=== PATIENT | male | born 1930 | race Caucasian/White ===

== ENCOUNTER 2016-08-31 05:37 | Emergency (ER) | payer MEDICARE, BC ==
[2016-08-31] MEDS ORDERED: Albuterol/Ipratropium NEB.SOL* Albuterol 2.5 MG/Ipratropium 0.5 MG 3 ML INH ONE (05:59)
[2016-08-31] MEDS ORDERED: methylPREDNISolone 125 MG* 2 ML VIAL IV ONE (05:59)
[2016-08-31] MEDS ORDERED: Ketorolac INJ* 30 MG/ML 1 ML VIAL IV PUSH ONE (06:00)
--- NOTE | 2016-08-31 06:29 | ED ---
kaylin Jenkins Timothy, scribed for Jarod Mejía MD on 08/31/16 at 0553 . HPI Chest Pain - HPI Summary HPI Summary: Pierre Carrillo is an 86 yo male presenting to [facility] with 10/10 CP and SOB with cough for the past 3-4 days. He states he is congested and cannot cough it up. His MHx includes CHF, migraine, COPD, emphysema, bronchitis, PNA, hiatal hernia , BPH, testicle removal, arthritis, panic disorder, depression, tobacco use. - History of Current Complaint Time Seen by Provider: 08/31/16 05:58 Hx Obtained From: Patient Onset/Duration: Started Days Ago, Still Present Timing: Constant Initial Severity: Moderate Current Severity: Moderate Pain Intensity: 10 Pain Scale Used: 0-10 Numeric Chest Pain Location: Diffuse Associated Signs and Symptoms: Positive: Shortness of Breath, Cough - Additional Pertinent History Primary Care Physician: [id number] - Allergy/Home Medications Allergies/Adverse Reactions: Allergies Allergy/AdvReac Type Severity Reaction Status Date / Time Penicillins [PCN] Allergy Severe Swelling Verified 08/31/16 05:58 Of Face,Lips,& Throat Sertraline Allergy Intermediate Rash And Verified 09/11/16 16:31 Itching Doxycycline Allergy Unknown Verified 08/31/16 05:58 Reaction Details Ezetimibe [From Zetia] Allergy See Comment Verified 09/11/16 16:31 Statins Allergy See Comment Verified 09/11/16 16:31 Home Medications: Home Medications Magnesium Hydroxide LIQ* [Milk of Magnesia LIQ*] 5 mg PO BID PRN 08/31/16 [ History Confirmed 09/11/16] PMH/Surg Hx/FS Hx/Imm Hx Endocrine/Hematology History: Denies: Hx Diabetes, Hx Systemic Lupus Erythematosus Cardiovascular History: Reports: Hx Congestive Heart Failure Denies: Hx Cardiomegaly, Hx Hypertension, Hx Myocardial Infarction, Hx Pacemaker/ICD Respiratory History: Reports: Hx Chronic Obstructive Pulmonary Disease (COPD), Hx Pneumonia - TWICE 04/2015, Other Respiratory Problems/Disorders - PLEURACY IN 2010 GI History: Reports: Hx Hiatal Hernia History: Reports: Hx Benign Prostatic Hyperplasia, Other Problems/ Disorders - testicle removed Denies: Hx Dialysis, Hx Kidney Stones, Hx Renal Disease Musculoskeletal History: Reports: Hx Arthritis - JOINTS, Other Musculoskeletal History - ,osteoarthritis, left hip replacement Denies: Hx Rheumatoid Arthritis Sensory History: Reports: Hx Cataracts, Hx Contacts or Glasses Denies: Hx Deafness, Hx Hearing Aid Opthamlomology History: Reports: Hx Cataracts, Hx Contacts or Glasses Neurological History: Reports: Hx Headaches, Hx Migraine - IN THE PAST, NOW MAYBE ONE PER YEAR, Other Neuro Impairments/Disorders - INSOMNIA Psychiatric History: Reports: Hx Depression - IN THE PAST, Hx Panic Disorder - Cancer History Hx Chemotherapy: No - Surgical History Surgery Procedure, Year, and Place: L total hip 2001, 3x hernia, testicle removed Hx Anesthesia Reactions: No Infectious Disease History: Denies: Traveled Outside the [place] in Last 30 Days - Family History Known Family History: Positive: Cardiac Disease - MOTHER, Other - ALZHEIMERS - BROTHER Negative: Diabetes - Social History Alcohol Use: None Hx Substance Use: No Substance Use Type: Reports: None Hx Tobacco Use: Yes Smoking Status (MU): Former Smoker Type: Cigarettes Review of Systems Constitutional: Negative Eyes: Negative ENT: Negative Positive: Chest Pain Positive: Shortness Of Breath, Cough Gastrointestinal: Negative Genitourinary: Negative Musculoskeletal: Negative Skin: Negative Neurological: Negative Psychological: Normal All Other Systems Reviewed And Are Negative: Yes Physical Exam Triage Information Reviewed: Yes Vital Signs On Initial Exam: Initial Vitals Temp Pulse Resp BP Pulse Ox 97.6 F 121 32 151/78 91 08/31/16 05:40 08/31/16 05:40 08/31/16 05:40 08/31/16 05:40 08/31/16 05:40 Vital Signs Reviewed: Yes Appearance: Positive: Well-Appearing, No Pain Distress Skin: Positive: Warm Head/Face: Positive: Normal Head/Face Inspection Eyes: Positive: ROSIO ENT: Positive: Hearing grossly normal Neck: Positive: Supple Respiratory/Lung Sounds: Positive: Decreased Breath Sounds - prolonged expiration Cardiovascular: Positive: RRR Abdomen Description: Positive: Nontender, Soft Bowel Sounds: Positive: Present Musculoskeletal: Positive: Strength/ROM Intact Neurological: Positive: Alert, Oriented to Person Place, Time Diagnostics - Vital Signs Vital Signs Temp Pulse Resp BP Pulse Ox 08/31/16 05:40 97.6 F 121 32 151/78 91 - Laboratory Result Diagrams: 08/31/16 06:25 08/31/16 06:25 Lab Statement: Any lab studies that have been ordered have been reviewed, and results considered in the medical decision making process. - Radiology CXR Xray Interpretation: Positive (See Comments) - COPD Radiology Interpretation Completed By: ED Physician - EKG 2647 Cardiac Rate: Tachycardia - 104 BPM EKG Interpretation: Sinus tachycardia @ 104 BPM Chest Pain Course/Dx - Course Assessment/Plan: Pierre Carrillo Jr. is an 86 yo male presenting to [facility] with 10/ 10 CP and SOB with cough for the past 3-4 days. In the ED course he received toradol for pain management, duoneb, and Soul-Medrol. His EKG suggests sinus tachycardia. His CXR suggests COPD. He will be signed out to Dr. Lea pending further lab results. - Diagnoses Provider Diagnoses: COPD (chronic obstructive pulmonary disease) Discharge - Discharge Plan Condition: Stable Disposition: OTHER Discharge Disposition Comment: signed out to Dr. Lea pending further lab results. Prescriptions: guaiFENesin/CODIEN 100MG-10MG* [Robitussin AC 100Mg-10Mg*] 5 ml PO Q4H PRN #250 udc MDD 30 PRN Reason: Cough Patient Education Materials: COPD (Chronic Obstructive Pulmonary Disease) (ED) , Chronic Bronchitis (ED) Referrals: David Issa MD [Primary Care Provider] - The documentation as recorded by the kaylin salazar Timothy accurately reflects the service I personally performed and the decisions made by me, Jarod Mejía MD.
[2016-08-31 07:05] LABS: Hematocrit 46 % (42-52); Mean Corpuscular HGB Conc 33 g/dl (31-36); Mean Corpuscular Hemoglobin 31 pg (27-31); Mean Corpuscular Volume 95 fL (80-94); Mean Platelet Volume 9 um3 (7.4-10.4); Red Blood Count 4.87 10^6/ul (4.0-5.4); Red Cell Distribution Width 15 % (10.5-15); White Blood Count 14.2 10^3/ul (3.5-10.8)
[2016-08-31 07:06] LABS: Add Diff/Slide Review? Slide Review Added; Comments Flag Yes
[2016-08-31 07:11] LABS: Albumin 4.2 g/dL (3.2-5.2); BUN/Creatinine Ratio 16.3 (8-20); Calcium 10.5 mg/dL (8.6-10.3); EGFR African American 71.9 (>60); EGFR Non-African American 55.9 (>60); Globulin 4.3 g/dL (2-4); Potassium 3.5 mmol/L (3.5-5.0); Total Bilirubin 0.5 mg/dL (0.2-1.0); Total Protein 8.5 g/dL (6.4-8.9)
[2016-08-31 07:13] LABS: Troponin I 0.03 ng/mL (<0.04)
--- NOTE | 2016-08-31 07:49 | RAD ---
HISTORY: Shortness of breath COMPARISONS: September 23, 2015 VIEWS: 2: Frontal dual-energy and lateral views of the chest. FINDINGS: CARDIOMEDIASTINAL SILHOUETTE: The cardiomediastinal silhouette is normal. ROSANNA: The rosanna are normal. PLEURA: The costophrenic angles are sharp. No pleural abnormalities are noted. LUNG PARENCHYMA: There is hyperinflation with flattening of the diaphragm and expansion of the AP diameter of the chest. There are mild fibrotic changes of the lung bases ABDOMEN: The upper abdomen is clear. There is no subphrenic gas. BONES AND SOFT TISSUES: No bone or soft tissue abnormalities are noted. OTHER: None. IMPRESSION: HYPERINFLATION, CONSISTENT WITH COPD. NO ACTIVE CARDIOPULMONARY DISEASE.
[2016-08-31 08:07] LABS: Immature Granulocytes 5 % (0-9); Myelocytes % 1 % (0-1); Neutrophil % 68 % (38-83); RBC Morphology Normal (Normal)
--- NOTE | 2016-08-31 09:04 | CONSULT ---
Consult Consult: I rechecked Mr. Zavala at 0830 and he was feeling much improved and felt he could go home. He was started on levoquin yesterday by Dr. Monreal and is on chronic prednisone for PMR. He asked for some cough and pain medication. He will be D/C'd in stable condition with a diagnosis of COPD exacerbation.
[2016-08-31 09:15] VITALS: BP 116/74
== END 2016-08-31 09:00 ==
LOC: ED 05:37
DX: J44.9 Chronic obstructive pulmonary disease, unspecified (principal); R06.02 Shortness of breath; R05 Cough; R07.9 Chest pain, unspecified; Z87.891 Personal history of nicotine dependence
CPT/HCPCS: 36415; 71020; 80053; 83605; 84484; 85025; 93005; 94640; 96374; 96375; 99284; A9270-GY; J1885; J2930

== ENCOUNTER 2016-09-11 08:32 | Inpatient (IN) | payer MEDICARE, BC ==
[2016-09-11] MEDS ORDERED: Albuterol/Ipratropium NEB.SOL* Albuterol 2.5 MG/Ipratropium 0.5 MG 3 ML INH ONE (09:04)
[2016-09-11] MEDS ORDERED: Ketorolac INJ* 30 MG/ML 1 ML VIAL IV ONE (09:04)
[2016-09-11] MEDS ORDERED: Ketorolac INJ* 30 MG/ML 1 ML VIAL ONE (09:07)
[2016-09-11 09:43] LABS: Hematocrit 44 % (42-52); Hemoglobin 14.2 g/dl (14.0-18.0); Mean Corpuscular HGB Conc 32 g/dl (31-36); Mean Corpuscular Hemoglobin 31 pg (27-31); Mean Corpuscular Volume 95 fL (80-94); Mean Platelet Volume 9 um3 (7.4-10.4); Red Blood Count 4.66 10^6/ul (4.0-5.4); Red Cell Distribution Width 15 % (10.5-15); White Blood Count 16.9 10^3/ul (3.5-10.8)
[2016-09-11 09:45] LABS: Add Diff/Slide Review? Slide Review Added; Comments Flag Yes
[2016-09-11 09:59] LABS: Troponin I 0.01 ng/mL (<0.04)
[2016-09-11 10:00] LABS: Albumin 3.4 g/dL (3.2-5.2); BUN/Creatinine Ratio 21.6 (8-20); Calcium 9.2 mg/dL (8.6-10.3); Globulin 2.9 g/dL (2-4); Potassium 3.7 mmol/L (3.5-5.0); Total Bilirubin 0.6 mg/dL (0.2-1.0); Total Protein 6.3 g/dL (6.4-8.9)
--- NOTE | 2016-09-11 10:23 | RAD ---
Indication: Shortness of breath. 2 views of the chest demonstrate no mediastinal shift. Heart is of normal size and configuration. Lung gilliam appear clear. When compared to previous exam of August 31, 2016 no significant change is noted. IMPRESSION: No active cardiopulmonary disease is identified.
[2016-09-11] MEDS ORDERED: methylPREDNISolone 125 MG* 2 ML VIAL IV ONE (10:28)
[2016-09-11 10:31] LABS: Immature Granulocytes 4 % (0-9); Myelocytes % 1 % (0-1); Neutrophil % 84 % (38-83); Reactive Lymph % 1 % (0-6)
[2016-09-11 10:32] LABS: RBC Morphology Normal (Normal)
[2016-09-11] MEDS ORDERED: Iohexol 350* (CONTRAST) 500 ML MDV IV ONE (11:35)
--- NOTE | 2016-09-11 12:02 | RAD ---
Indication: Chest pain, shortness of breath. Contrast: Administered 61.1 ml of OMNIPAQUE 350 mg/ml CTA of the chest was performed after IV contrast demonstration. Coronal and sagittal reconstructed images were obtained. The pulmonary arterial tree is suboptimally visualized. No obvious filling defects are noted although motion artifact degrades the images. There is no mediastinal or hilar adenopathy noted although small AP window lymph nodes are noted. Aorta demonstrates no evidence of aortic dissection. Chronic interstitial disease is noted. Bibasilar airspace disease is present. There is a right renal cyst noted. 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 The visualized abdominal organs are otherwise unremarkable. IMPRESSION: PULMONARY ARTERIES ARE SUBOPTIMALLY VISUALIZED. THE PATIENT COULD NOT FOLLOW DIRECTIONS. NO OBVIOUS PULMONARY EMBOLUS IS NOTED ALTHOUGH SMALLER VESSELS ARE NOT WELL DEMONSTRATED. AORTA DEMONSTRATES NO EVIDENCE OF AORTIC DISSECTION. EMPHYSEMATOUS CHANGES WITH BIBASILAR AIRSPACE DISEASE LIKELY REPRESENTING ATELECTASIS ALTHOUGH PNEUMONIA IS NOT EXCLUDED. RIGHT RENAL CYST IS NOTED. DUODENAL LIPOMA IS PRESENT.
[2016-09-11] MEDS ORDERED: Albuterol 2.5 MG/3 ML NEB.SOL* (0.083%) INH PRN (14:28)
[2016-09-11] MEDS ORDERED: Ketorolac INJ* 15 MG/ML 1 ML VIAL IV PUSH PRN (14:32)
[2016-09-11] MEDS ORDERED: Spiriva Inhaler DEVICE* 1 EACH DEVICE INH ONE (15:00)
[2016-09-11] MEDS: guaiFENesin ER TAB 600 MG PO SCH ×2 (16:35→21:47)
--- NOTE | 2016-09-11 17:02 | HP ---
CC: David Issa MD HISTORY AND PHYSICAL: DATE OF ADMISSION: 09/11/16 CHIEF COMPLAINT: Chest pain. HISTORY OF PRESENT ILLNESS: Mr. Carrillo is an 86-year-old male with past medical history of COPD, BP H, depression, PMR, insomnia, who presents to the hospital with chest pain and shortness of breath. The patient states his symptoms began on the first of this month. He states he was having nausea a nd some shortness of breath with right-sided chest pain. He states he came to the hospital and was treated in the emergency department for possible COPD exacerbation or pneumonia. The patient had be en started on antibiotics by Dr. Monreal the previous day and was discharged home with some cough and pain medication. The patient states over the past week he completed the course of Levaquin and has not noted much change in his symptoms. He reports right-sided chest pain mostly in the lateral asp ect of the wall of the chest, although occasionally in the midsternal area too with coughing. He st ates it has been progressively worse over the past few days and last night he could not even get in and out of bed without having significant pain. This morning, he noticed some increasing shortness of breath also when he was walking downstairs. He was supposed to have an appointment with Dr. Miguel askew regarding possible back surgery, but he canceled the appointment and felt that he needed to come to the emergency department instead. He reports he has had significant chest congestion has had a c hronic cough. He is not sure if it is any worse than normal. He states that the chest pain is wors e with movement and occasionally with deep breathing. He usually just used his oxygen at night and w ith exertion; however, in the past few days he has been using it round the clock. The patient used a hot pack for the chest pain, this did not seem to help, but did notice improvement with ibuprofen. He has had some nausea and hiccups, also reports some constipation that improved with milk of magne gloria yesterday; however, today he feels like his abdomen is distended again. He has felt that over t he past few months he had some significant abdominal distention that is unusual for him. Here in th e emergency room, the patient got a DuoNeb and Solu-Medrol, as well as a dose of IV Toradol. He sta ed that his chest pain is still present but improved. He has been persistently tachycardic through out his stay here and underwent a CTA of the chest that did not show any clear evidence of PE, altho ugh there was some movement which made the study a little difficult to interpret. PAST MEDICAL HISTORY: COPD, on nocturnal O2, but more recently round the clock. BPH, depression, PM R, insomnia. PAST SURGICAL HISTORY: Left total hip replacement, multiple hernias with small bowel surgery and le ft orchiectomy. HOME MEDICATIONS: 1. Prednisone 30 mg by mouth daily which he is currently tapering. 2. Guaifenesin and codeine 5 mL by mouth every 4 hours as needed for cough. 3. Spiriva 1 capsule inhale daily. 4. Temazepam 30 mg by mouth at bedtime as needed for insomnia. 5. Mirtazapine 15 mg by mouth at bedtime. 6. Milk of magnesia 5 mg by mouth 3 times daily as needed for constipation. 7. Albuterol 1 puff inhale every 4 hours as needed for shortness of breath or wheezing. 8. Ibuprofen 400 mg by mouth every 6 hours as needed for pain. 9. Lasix 20 mg by mouth every other day. 10. Breo Ellipta 1 puff inhale daily. 11. Finasteride 5 mg by mouth daily. 12. Vitamin C 500 mg by mouth daily. ALLERGIES: To PENICILLIN and STATINS. FAMILY HISTORY: Significant for mother with CAD and brother with Alzheimer's disease. SOCIAL HISTORY: The patient is a former smoker with [id number]-[id number] history. Has 6 children. Denies any alcohol or illicit drug use. REVIEW OF SYSTEMS: A 12-point review of systems is negative except for that noted in the HPI. PHYSICAL EXAMINATION GENERAL: The patient is a pleasant elderly male lying in bed, in no apparent distress. VITAL SIGNS: On admission, temperature 97.8, heart rate of 122, respiratory rate of 20, O2 saturati on 90% on 3 L, blood pressure 122/65. HEENT: Head: Normocephalic, atraumatic. Pupils are equal, round, and reactive to light and accomm odation. Anicteric sclerae. ENT: Dry mucous membranes. No cervical adenopathy. LUNGS: The patient with some coarse right basilar rales. Otherwise, clear. I do not appreciate an y wheezing. Mildly prolonged expiratory phase. CARDIOVASCULAR: Tachycardia. No murmurs, gallops or rubs. ABDOMEN: Distended, soft, some mild tenderness to palpation in the right upper quadrant. Bowel ismael nds positive. EXTREMITIES: No cyanosis, clubbing, or edema. NEUROLOGIC: The patient is alert and oriented x3. No focal neurological deficits. SKIN: Warm, dry and well perfused. LABS AND DIAGNOSTICS: White blood cell count 16.9, hematocrit of 44, platelets of 165,000. INR is 0.8, D-dimer of 599. Sodium of 139, potassium 3.7, chloride of 103, carbon dioxide 26, BUN of 24, creatinine 1.11, glucose of 115. Lactic acid 2.6. LFTs within normal limits. Troponin 0.01. B-na triuretic peptide of 50. EKG personally reviewed shows sinus tachycardia. Chest x-ray personally reviewed shows no acute disease. CTA of the chest shows suboptimally visualized pulmonary arteries but no obvious PE noted, although the small vessels are not well demonstrated. No aortic dissection. Emphysematous changes with bibas ilar airspace disease likely representing atelectasis. Right renal cyst is noted. Duodenal lipoma is present. ASSESSMENT AND PLAN: Chest pain, shortness of breath in an 86-year-old male with past medical histo ry of chronic obstructive pulmonary disease, benign prostatic hyperplasia, depression, polymyalgia r heumatica and insomnia. 1. Chest pain. I do not think this is cardiac in etiology. CTA did not show any clear evidence of pulmonary embolism, although study was suboptimal. The patient's D-dimer is 599 which is not signi ficantly elevated with age adjustment. Based on the symptoms, it seems like this is more of a pleur itic pain than anything else as he has responded to antiinflammatories. For now, we will place the patient on p.r.n. ibuprofen and Toradol if needed for pain, also start some guaifenesin to see if we can help with the chest congestion. 2. Tachycardia, likely due to a combination of the patient's pain and large dose of steroids he rec eived here, although I feel it could warrant observation with his advanced age as he has persistentl y been in the one teens, occasionally 120s here in the hospital. Looking back at his previous admis sions, he has often had heart rates in the 90s or higher. I do not feel the patient needs telemetry monitoring at this point. 3. Shortness of breath. Difficult to tell if this is related to the patient's chest pain at all. I do not think he is having chronic obstructive pulmonary disease exacerbation. He received a large dose of IV steroids here in the hospital. We will just continue him back on his oral prednisone to see if he will get up and ambulate with nursing up on the floor. I do not think he has an active i nfection as he has just completed a week of Levaquin and the airspace abnormalities seen on CTA may just be atelectasis or possibly resolving pneumonia. 4. Chronic obstructive pulmonary disease. Continue home medications. 5. Benign prostatic hyperplasia. Continue home finasteride. 6. Depression. Continue home Remeron. 7. Polymyalgia rheumatica. Steroids as above. 8. DVT prophylaxis. Heparin subcu. 9. Abdominal distention. We will check a right upper quadrant ultrasound as the patient is having a bit of tenderness there. We will evaluate for any ascites as well. 10. Code status confirmed with the patient that he is a do not resuscitate. MOLST filled out to th at effect. TIME SPENT: Total time spent on this admission, 45 minutes, with over half the time spent face-to-f pattie with the patient in counseling and coordinating care. [id number]/[facility] #: [id number]
--- NOTE | 2016-09-11 18:49 | RAD ---
HISTORY: Right upper quadrant pain COMPARISONS: CT dated May 28, 2014 TECHNIQUE: Multiple transverse and longitudinal ultrasound images were obtained of the right upper quadrant of the abdomen using grayscale and color Doppler imaging. FINDINGS: The study is limited by patient bowel gas. LIVER: The liver is normal in shape, size, contour, and echogenicity. There are no focal parenchymal masses. There is normal hepatopedal flow of the portal vein on Doppler imaging. BILIARY TREE: There is no intrahepatic ductal dilatation. There is ectasia of the common duct. The common duct measures 0.9 cm. GALLBLADDER: The gallbladder is well-visualized. There is no cholelithiasis, gallbladder wall thickening, pericholecystic fluid, or sonographic Obando sign. PANCREAS: The head of the pancreas is unremarkable. The tail of the pancreas is not well visualized secondary to overlying bowel gas. RIGHT KIDNEY: There is a 1.5 cm cyst of the midpole of the right kidney. There is no hydronephrosis or nephrolithiasis. The right kidney measures 11.2 x 5 x 5.6 cm. AORTA AND IVC: The aorta and IVC are unremarkable. FLUID: There are no pleural effusions. There is no free fluid within the hepatorenal recess. OTHER FINDINGS: None. IMPRESSION: ECTASIA OF THE COMMON DUCT MEASURING UP TO 0.9 CM, WITHOUT INTRAHEPATIC BILIARY DILATATION. NO ASCITES
[2016-09-11] MEDS: Tiotropium CAP.INH* CAP.INH/18 MCG INH SCH (20:04)
[2016-09-11] MEDS: Heparin VIAL(*) 5000 UNITS/ML VIAL (FIVE THOUSAND) SUBCUT SCH (21:48)
[2016-09-11] MEDS: Mirtazapine TAB* 15 MG PO SCH (21:48)
[2016-09-12] MEDS: Heparin VIAL(*) 5000 UNITS/ML VIAL (FIVE THOUSAND) SUBCUT SCH ×3 (06:09→21:19)
[2016-09-12] MEDS ORDERED: Fluticasone/Vilanterol MDI(NF) 100/25 MDI INH SCH (09:00)
[2016-09-12] MEDS: guaiFENesin ER TAB 600 MG PO SCH ×2 (09:34→19:20)
[2016-09-12] MEDS: Finasteride TAB* 5 MG PO SCH (09:35)
[2016-09-12] MEDS: predniSONE TAB* 10 MG PO SCH (09:35)
[2016-09-12] MEDS: Ascorbic Acid TAB* 500 MG PO SCH (09:35)
[2016-09-12] MEDS ORDERED: Furosemide IV* 10 MG/ML 2 ML VIAL (20 MG) IV ONE (10:39)
--- NOTE | 2016-09-12 10:40 | PN ---
Subjective Date of Service: 09/12/16 Interval History: Pt is feeling about the same. He states he continues to have chest pain and back pain that is unchanged from when he came to the ER. He states he is still coughing due to congestion. The coughing makes his pain worse. He still feels SOB, especially with exertion. Objective Active Medications: Albuterol (Ventolin 2.5 Mg/3 Ml Neb.Marie*) 2.5 mg INH [id number] AWAKE [facility] Ascorbic Acid (Vitamin C Tab*) 500 mg PO DAILY [facility] Last Admin: 09/12/16 09:35 Dose: 500 mg Finasteride (Proscar Tab*) 5 mg PO QAM [facility] Last Admin: 09/12/16 09:35 Dose: 5 mg Furosemide (Lasix Tab*) 20 mg PO EVERY OTHER DAY [facility] Guaifenesin (Mucinex*) 600 mg PO BID [facility] Last Admin: 09/12/16 09:34 Dose: 600 mg Heparin Sodium (Porcine) (Heparin Vial(*)) 5,000 units SUBCUT Q8HR [facility] Last Admin: 09/12/16 06:09 Dose: 5,000 units Ibuprofen (Motrin Tab*) 400 mg PO Q6HR PRN PRN Reason: pain Ketorolac Tromethamine (Toradol Inj*) 15 mg IV PUSH Q6H PRN PRN Reason: SEVERE PAIN Magnesium Hydroxide (Milk Of Magnesia Liq*) 30 ml PO BID PRN PRN Reason: CONSTIPATION Mirtazapine (Remeron Tab*) 15 mg PO BEDTIME [facility] Last Admin: 09/11/16 21:48 Dose: 15 mg Prednisone (Deltasone Tab*) 30 mg PO DAILY [facility] Last Admin: 09/12/16 09:35 Dose: 30 mg Temazepam (Restoril Cap*) 30 mg PO BEDTIME PRN PRN Reason: SLEEP Tiotropium Arden (Spiriva Cap.Inh*) 1 cap INH BEDTIME [facility] Last Admin: 09/11/16 20:04 Dose: 1 cap Vital Signs 09/11/16 09/11/16 09/11/16 15:54 19:43 20:06 Temperature 97.7 F 97.9 F Pulse Rate 101 99 100 Respiratory 18 22 18 Rate Blood Pressure 131/64 125/83 (mmHg) O2 Sat by Pulse 96 95 96 Oximetry 09/11/16 09/12/16 09/12/16 23:45 02:22 04:10 Temperature 98.2 F 99.9 F Pulse Rate 94 115 116 Respiratory 20 24 Rate Blood Pressure 131/81 123/66 (mmHg) O2 Sat by Pulse 92 89 96 Oximetry 09/12/16 08:58 Temperature Pulse Rate 111 Respiratory 18 Rate Blood Pressure (mmHg) O2 Sat by Pulse 94 Oximetry Oxygen Devices in Use Now: Simple Face Mask - 5L-94% Appearance: Elderly male lying in bed sleeping, awakens to voice, NAD Eyes: No Scleral Icterus Ears/Nose/Mouth/Throat: Mucous Membranes Moist Respiratory: Symmetrical Chest Expansion and Respiratory Effort, - - diminshed breath sounds in all lung gilliam, no crackles heards, few scattered wheezes heard bilaterally, Pt has moist non-productive cough Cardiovascular: NL Sounds; No Murmurs; No JVD, RRR, No Edema Abdominal: NL Sounds; No Tenderness; No Distention Extremities: No Clubbing, Cyanosis Skin: No Rash or Ulcers, No Nodules or Sclerosis Neurological: Alert and Oriented x 3 Result Diagrams: 09/11/16 09:25 09/11/16 09:25 Assess/Plan/Problems-Billing Mr Carrillo is an 86 yo M who has a h/o COPD utilizing O2 with sleep and exertion , PMR (recently had his prednisone dose increased), BPH and depression who presented to the ER with c/o chest pain and SOB as well as abdominal bloating. - Patient Problems (1) SOB (shortness of breath) Current Visit: Yes Status: Acute Code(s): R06.02 - SHORTNESS OF BREATH SNOMED Code(s): 565207740 Comment: Likely multifactorial from COPD, viral bronchitis and I question if he may have underlying CHF. He was started on lasix in the past-no previous echos to review. Will get echocardiogram now. Trial single dose of IV lasix to see if that helps with his SOB and moist non-productive cough. (2) Chest pain Current Visit: Yes Status: Acute Code(s): R07.9 - CHEST PAIN, UNSPECIFIED SNOMED Code(s): 35198484 Comment: This is non-cardiac chest pain. I suspect his pain is costochondritis secondary to coughing violently and frequently. Continue prn pain control. (3) Tachycardia Current Visit: Yes Status: Acute Code(s): R00.0 - TACHYCARDIA, UNSPECIFIED SNOMED Code(s): 4220174 Comment: The patient remains tachycardic. He does not appear to be in significant pain that will be driving up his HR. ? fluid overload-trial IV lasix. If no better tomorrow will start rate lowering med as he should not continue at this tachycardic rate. (4) COPD (chronic obstructive pulmonary disease) Current Visit: Yes Status: Acute Code(s): J44.9 - CHRONIC OBSTRUCTIVE PULMONARY DISEASE, UNSPECIFIED SNOMED Code(s): 98305108 Comment: I do not believe the patient is in exacerbation though I do suspect his underlying moderate to severe COPD is contributing to his SOB. As the patient did not respond to levaquin I do not think he has a bacterial infection though I do suspect that he may have a viral bronchitis. Will start standing nebs as he does have slight wheezing on exam. Continue current dose of prednisone. (5) Polymyalgia rheumatica Current Visit: No Status: Acute Code(s): M35.3 - POLYMYALGIA RHEUMATICA SNOMED Code(s): 61872454 Comment: The patient's prednisone dose was increased recently by his PCP for concerns of worsened PMR (he was having leg pain). Continue current dose of prednisone. (6) DVT prophylaxis Current Visit: Yes Status: Acute Code(s): RQN7480 - SNOMED Code(s): 042627921 Comment: SQ heparin (7) DNR (do not resuscitate) Current Visit: Yes Status: Acute
[2016-09-12] MEDS ORDERED: Perflutren Lipid Microsphere* 3 ML VIAL ONE (11:22)
[2016-09-12] MEDS: Albuterol 2.5 MG/3 ML NEB.SOL* (0.083%) INH SCH ×4 (12:42→22:44)
--- NOTE | 2016-09-12 14:30 | ECHO ---
Patient: PARAMJIT COBIAN [facility] Rec#: [id number] : 1930 Date: 09/12/2016 Age: 86y Height: 167.64 cm / 66.0 in Weight: 63.5 kg / 140.0 lbs Sex: M BSA: 1.72 Room#: [facility] Admit Date#: 09/11/2016 Type: Inpatient Referring: Jeannie Berry DO Reading: Jose Bedolla MD Retirement Administrator: Samanta Blanc SHAUNA CC: David Issa MD Transthoracic Echocardiogram Indication: CP//SOB//tachycardia BP: 123/66 HR: 106 Rhythm: Tachycardia Findings History: COPD with home oxygen,BPH. Technical Comments: The study is technically limited due to the patient's history of COPD. COmpleted at 1206. Left Ventricle: The left ventricular chamber size is decreased. Septal wall hypertrophy is observed. Left ventricular systolic function is at the lower limits of normal. The estimated ejection fraction is 50-55%. There is a left ventricular septal wall motion abnormality observed, possibly due to the presence of a right bundle branch block. The assessment of diastolic function is non-diagnostic. Left Atrium: The left atrial chamber size is normal. Right Ventricle: The right ventricle is mildly dilated. The right ventricular global systolic function is normal. Right Atrium: The right atrium is not well visualized. Aortic Valve: The aortic valve structure is not well visualized. Mitral Valve: The mitral valve leaflets are mildly thickened. There is no evidence of mitral regurgitation. There is no evidence of mitral stenosis. Tricuspid Valve: The tricuspid valve leaflets are normal. There is no evidence of tricuspid valve regurgitation. Unable to estimate the right ventricular systolic pressure. There is no tricuspid stenosis. Pulmonic Valve: The pulmonic valve structure is not well visualized. Pericardium: The pericardium appears normal. Aorta: The ascending aorta is not well visualized. There is no dilatation of the aortic arch. There is mild dilatation of the aortic root. Pulmonary Artery: The main pulmonary artery is not well visualized. Venous: The venous system is not well visualized. Contrast: Definity was used to optimize study. A total of 3.5ml was used. Intravenous contrast was used to enhance endocardial border definition. Summary: There was not any prior study for comparison. Conclusions The study is technically limited due to the patient's history of COPD. COmpleted at 1206. Septal wall hypertrophy is observed. The assessment of diastolic function is non-diagnostic. Left ventricular systolic function is at the lower limits of normal. The estimated ejection fraction is 50-55%. There is a left ventricular septal wall motion abnormality observed, possibly due to the presence of a right bundle branch block. The right ventricle is mildly dilated. The aortic valve structure is not well visualized. There is no evidence of mitral regurgitation. There is no evidence of tricuspid valve regurgitation. Unable to estimate the right ventricular systolic pressure. The pericardium appears normal. The ascending aorta is not well visualized. Measurements Name Value Normal Range RVIDd (AP) 2D 2 cm (0.9 - 2.6) RVDdMajor (2D) 4.4 cm (2.2 - 4.4) IVSd (2D) 1.3 cm (0.6 - 1) LVPWd (2D) 1 cm (0.6 - 1) LVIDd (2D) 2.8 cm (3.6 - 5.4) LVIDs (2D) 1.5 cm - LV FS (2D) 46 % (25 - 45) Aortic Annulus 2.4 cm (1.4 - 2.6) Ao root diameter (2D) 3.8 cm (2.1 - 3.5) Aortic arch 2.5 cm (1.8 - 3.4) Descending Ao 0.5 cm - LA dimension (AP) 2D 2.6 cm (2.3 - 3.8) Name Value Normal Range MV E-wave Vmax 0.5 m/sec - MV deceleration time 78 msec - MV A-wave Vmax 0.8 m/sec - MV E:A ratio 0.64 ratio - LV septal e' Vmax 0.07 m/sec - LV lateral e' Vmax 0.09 m/sec - LV E:e' septal ratio 12.85 ratio - LV E:e' lateral ratio 5.56 ratio - Name Value Normal Range AV Vmax 1 m/sec - AV VTI 15.2 cm - AV peak gradient 3.89 mmHg - AV mean gradient 2.01 mmHg - LVOT Vmax 0.8 m/sec - LVOT VTI 13.4 cm - LVOT peak gradient 2.6 mmHg - LVOT mean gradient 1.34 mmHg - Name Value Normal Range PV Vmax 0.7 m/sec - PV peak gradient 2.1 mmHg -
[2016-09-12] MEDS: Tiotropium CAP.INH* CAP.INH/18 MCG INH SCH (19:20)
[2016-09-12] MEDS: Mirtazapine TAB* 15 MG PO SCH (19:21)
--- NOTE | 2016-09-12 20:25 | ED ---
Jane Jenkins SooYoung, scribed for Ponce Lea MD on 09/11/16 at 0844 . Shortness of Breath - HPI Summary HPI Summary: An 86 y/o M presents to ED with c/o SOB onset a few days ago. Pt took a course of Levaquin which did not alleviate his sx. Pt also c/o R-sided intermittent back pain for the past week. Associated sx: bloating, constipation. Aggravating factors: deep breaths, moving. He's been unable to sleep due to the pain. Pt took milk of magnesia which helped but his constipation returned. Last BM was two days ago. Pt notes the pain feels similar to prev episodes of pleurisy. Rates pain as 8 out of 10 during episode. Does not use nebulizers at home. Pt last in ED on 08/31/16 for dyspnea and CP. - History of Current Complaint Chief Complaint: EDShortnessOfBreath Time Seen by Provider: 09/11/16 08:41 Hx Obtained From: Patient, Family/Animal Rehabilitator - present Onset/Duration: Lasting Days, Still Present Timing: Intermittent Episodes Lasting: Aggrevating Factors: Movement, Deep Breaths - Allergy/Home Medications Allergies/Adverse Reactions: Allergies Allergy/AdvReac Type Severity Reaction Status Date / Time Penicillins [PCN] Allergy Severe Swelling Verified 08/31/16 05:58 Of Face,Lips,& Throat Sertraline Allergy Intermediate Rash And Verified 09/11/16 16:31 Itching Doxycycline Allergy Unknown Verified 08/31/16 05:58 Reaction Details Ezetimibe [From Zetia] Allergy See Comment Verified 09/11/16 16:31 Statins Allergy See Comment Verified 09/11/16 16:31 Home Medications: Home Medications Albuterol Sulfate [Proair Respiclick] 1 puff INH Q4H PRN 09/11/16 [History Confirmed 09/11/16] PMH/Surg Hx/FS Hx/Imm Hx Previously Healthy: No Endocrine/Hematology History: Denies: Hx Diabetes, Hx Systemic Lupus Erythematosus Cardiovascular History: Reports: Hx Congestive Heart Failure Denies: Hx Cardiomegaly, Hx Hypertension, Hx Myocardial Infarction, Hx Pacemaker/ICD Respiratory History: Reports: Hx Chronic Obstructive Pulmonary Disease (COPD), Hx Pneumonia - TWICE 04/2015, Other Respiratory Problems/Disorders - PLEURACY IN 2010 GI History: Reports: Hx Hiatal Hernia History: Reports: Hx Benign Prostatic Hyperplasia, Other Problems/ Disorders - testicle removed Denies: Hx Dialysis, Hx Kidney Stones, Hx Renal Disease Musculoskeletal History: Reports: Hx Arthritis - JOINTS, Other Musculoskeletal History - ,osteoarthritis, left hip replacement Denies: Hx Rheumatoid Arthritis Sensory History: Reports: Hx Cataracts, Hx Contacts or Glasses Denies: Hx Deafness, Hx Hearing Aid Opthamlomology History: Reports: Hx Cataracts, Hx Contacts or Glasses Neurological History: Reports: Hx Headaches, Hx Migraine - IN THE PAST, NOW MAYBE ONE PER YEAR, Other Neuro Impairments/Disorders - INSOMNIA Psychiatric History: Reports: Hx Depression - IN THE PAST, Hx Panic Disorder - Cancer History Hx Chemotherapy: No - Surgical History Surgery Procedure, Year, and Place: L total hip 2000, 3x hernia, testicle removed Hx Anesthesia Reactions: No Infectious Disease History: No Infectious Disease History: Denies: Traveled Outside the [place] in Last 30 Days - Family History Known Family History: Positive: Cardiac Disease - MOTHER, Other - ALZHEIMERS - BROTHER Negative: Diabetes - Social History Occupation: Retired Lives: With Family - roommate Alcohol Use: None Hx Substance Use: No Substance Use Type: Reports: None Hx Tobacco Use: Yes Smoking Status (MU): Former Smoker Type: Cigarettes Review of Systems Positive: Other - pos: bloating Positive: other - pos: constipation Positive: Other - pos: R-sided back pain All Other Systems Reviewed And Are Negative: Yes Physical Exam - Summary Physical Exam Summary: Tachypnea, tachy, accessory muscles, decreased breath sounds, wheezes in bases, tender on R lateral chest wall, no edema. EKG: Sinus tachy, non-specific T-wave Triage Information Reviewed: Yes Vital Signs On Initial Exam: Initial Vitals Temp Pulse Resp BP Pulse Ox 97.8 F 122 20 122/65 90 09/11/16 08:35 09/11/16 08:35 09/11/16 08:35 09/11/16 08:35 09/11/16 08:35 Vital Signs Reviewed: Yes Appearance: Positive: Well-Appearing, No Pain Distress Skin: Positive: Warm, Skin Color Reflects Adequate Perfusion, Dry Head/Face: Positive: Normal Head/Face Inspection Eyes: Positive: Normal ENT: Positive: Normal ENT inspection Neck: Positive: Supple, Nontender Respiratory/Lung Sounds: Positive: Decreased Breath Sounds, Wheezes - in the bases, Other - pos: tachypnea, accessory muscle use Cardiovascular: Positive: Tachycardia Abdomen Description: Positive: Nontender, Soft Bowel Sounds: Positive: Present Musculoskeletal: Positive: Other - pos: tenderness on R lateral wall. Negative : Edema Left, Edema Right Neurological: Positive: Normal Psychiatric: Positive: Normal, Affect/Mood Appropriate Diagnostics - Vital Signs Vital Signs Temp Pulse Resp BP Pulse Ox 09/11/16 08:37 97.6 F 122 24 122/65 90 09/11/16 08:35 97.8 F 122 20 122/65 90 - Laboratory Lab Results: Lab Results 09/11/16 09/11/16 09/11/16 Range/Units 09:25 09:25 09:25 WBC 16.9 H (3.5-10.8) 10^3/ul RBC 4.66 (4.0-5.4) 10^6/ul Hgb 14.2 (14.0-18.0) g/dl Hct 44 (42-52) % MCV 95 H (80-94) fL MCH 31 (27-31) pg MCHC 32 (31-36) g/dl RDW 15 (10.5-15) % Plt Count 165 (150-450) 10^3/ul MPV 9 (7.4-10.4) um3 Immature Gran % (Auto) 4 (0-9) % Neut % (Auto) 84.8 H (38-83) % Lymph % (Auto) 10.0 L (25-47) % [place] % (Auto) 4.5 (1-9) % Eos % (Auto) 0.1 (0-6) % Baso % (Auto) 0.6 (0-2) % Absolute Neuts (auto) 14.3 H (1.5-7.7) 10^3/ul Absolute Lymphs (auto) 1.7 (1.0-4.8) 10^3/ul Absolute Monos (auto) 0.8 (0-0.8) 10^3/ul Absolute Eos (auto) 0 (0-0.6) 10^3/ul Absolute Basos (auto) 0.1 (0-0.2) 10^3/ul Absolute Nucleated RBC 0.01 10^3/ul Neutrophils % 84 H (38-83) % Band Neutrophils % 3 (0-8) % Lymphocytes % 6 L (25-47) % Reactive Lymphs % 1 (0-6) % Monocytes % 5 (0-13) % Myelocytes % 1 (0-1) % Nucleated RBC % 0 Normal RBC Morphology Normal (Normal) INR (Anticoag Therapy) (0.89-1.11) D-Dimer, Quantitative (Less Than 230) ng/mL Sodium 139 (133-145) mmol/L Potassium 3.7 (3.5-5.0) mmol/L Chloride 103 (101-111) mmol/L Carbon Dioxide 26 (22-32) mmol/L Anion Gap 10 (2-11) mmol/L BUN 24 (6-24) mg/dL Creatinine 1.11 (0.67-1.17) mg/dL Est GFR ( Amer) 81.0 (>60) Est GFR (Non-Af Amer) 63.0 (>60) BUN/Creatinine Ratio 21.6 H (8-20) Glucose 115 H (70-100) mg/dL Lactic Acid 2.6 H* (0.5-2.0) mmol/L Calcium 9.2 (8.6-10.3) mg/dL Total Bilirubin 0.60 (0.2-1.0) mg/dL AST 20 (13-39) U/L ALT 26 (7-52) U/L Alkaline Phosphatase 75 (34-104) U/L Troponin I 0.01 (<0.04) ng/mL B-Natriuretic Peptide ( - 100) pg/mL Total Protein 6.3 L (6.4-8.9) g/dL Albumin 3.4 (3.2-5.2) g/dL Globulin 2.9 (2-4) g/dL Albumin/Globulin Ratio 1.2 (1-3) 09/11/16 09/11/16 Range/Units 09:25 09:25 WBC (3.5-10.8) 10^3/ul RBC (4.0-5.4) 10^6/ul Hgb (14.0-18.0) g/dl Hct (42-52) % MCV (80-94) fL MCH (27-31) pg MCHC (31-36) g/dl RDW (10.5-15) % Plt Count (150-450) 10^3/ul MPV (7.4-10.4) um3 Immature Gran % (Auto) (0-9) % Neut % (Auto) (38-83) % Lymph % (Auto) (25-47) % [place] % (Auto) (1-9) % Eos % (Auto) (0-6) % Baso % (Auto) (0-2) % Absolute Neuts (auto) (1.5-7.7) 10^3/ul Absolute Lymphs (auto) (1.0-4.8) 10^3/ul Absolute Monos (auto) (0-0.8) 10^3/ul Absolute Eos (auto) (0-0.6) 10^3/ul Absolute Basos (auto) (0-0.2) 10^3/ul Absolute Nucleated RBC 10^3/ul Neutrophils % (38-83) % Band Neutrophils % (0-8) % Lymphocytes % (25-47) % Reactive Lymphs % (0-6) % Monocytes % (0-13) % Myelocytes % (0-1) % Nucleated RBC % Normal RBC Morphology (Normal) INR (Anticoag Therapy) 0.80 L (0.89-1.11) D-Dimer, Quantitative 599 H (Less Than 230) ng/mL Sodium (133-145) mmol/L Potassium (3.5-5.0) mmol/L Chloride (101-111) mmol/L Carbon Dioxide (22-32) mmol/L Anion Gap (2-11) mmol/L BUN (6-24) mg/dL Creatinine (0.67-1.17) mg/dL Est GFR ( Amer) (>60) Est GFR (Non-Af Amer) (>60) BUN/Creatinine Ratio (8-20) Glucose (70-100) mg/dL Lactic Acid (0.5-2.0) mmol/L Calcium (8.6-10.3) mg/dL Total Bilirubin (0.2-1.0) mg/dL AST (13-39) U/L ALT (7-52) U/L Alkaline Phosphatase (34-104) U/L Troponin I (<0.04) ng/mL B-Natriuretic Peptide 50 ( - 100) pg/mL Total Protein (6.4-8.9) g/dL Albumin (3.2-5.2) g/dL Globulin (2-4) g/dL Albumin/Globulin Ratio (1-3) Result Diagrams: 09/11/16 09:25 09/11/16 09:25 Lab Statement: Any lab studies that have been ordered have been reviewed, and results considered in the medical decision making process. - Radiology CXR Xray Interpretation: No Acute Changes - IMPRESSION: No active cardiopulmonary dz is identified. Radiology Interpretation Completed By: Radiologist - CT chest/thorax CT Interpretation: Positive (See Comments) - IMPRESSION: PULMONARY ARTERIES ARE SUBOPTIMALLY VISUALIZED. THE PATIENT COULD NOT FOLLOW DIRECTIONS. NO OBVIOUS PULMONARY EMBOLUS IS NOTED ALTHOUGH SMALLER VESSELS ARE NOT WELL DEMONSTRATED. AORTA DEMONSTRATES NO EVIDENCE OF AORTIC DISSECTION. EMPHYSEMATOUS CHANGES WITH BIBASILAR AIRSPACE DISEASE LIKELY REPRESENTING ATELECTASIS ALTHOUGH PNEUMONIA IS NOT EXCLUDED. CT Interpretation Completed By: Radiologist - EKG 1 EKG Rhythm: Sinus Tachycardia ST Segment: Non-Specific Re-Evaluation - Re-Evaluation 1 Re-Evaluation Time: 13:15 Change: Unchanged Comment: Pt is unchanged, will consult with hospitalist for possible admission Course/Dx - Course Course Of Treatment: Mr. Zavala presented SOB and tachycardic. The former resolved well with a neb but the latter persisted in spite of fluids and steroids. The hospitalists were asked to consult. - Diagnoses Provider Diagnoses: COPD exacerbation, Tachycardia - Physician Notifications Discussed Care of Patient With: Jose Alejandro Agrawal - hospitalist Time Discussed With Above Provider: 10:15 - Critical Care Time Critical Care Time: 30-74 min Discharge - Discharge Plan Condition: Stable Disposition: ADMITTED TO [facility] Consult Consult: 1341: Consulted with Dr. Dominguez, hospitalist INFECTION CONTROL RN: Will admit. The documentation as recorded by the Jane salazar SooYoung accurately reflects the service I personally performed and the decisions made by , Ponce Lea MD.
[2016-09-13] MEDS: Albuterol 2.5 MG/3 ML NEB.SOL* (0.083%) INH SCH ×6 (02:29→23:44)
[2016-09-13] MEDS: Heparin VIAL(*) 5000 UNITS/ML VIAL (FIVE THOUSAND) SUBCUT SCH ×3 (04:55→21:18)
[2016-09-13 05:32] LABS: Hematocrit 39 % (42-52); Hemoglobin 12.6 g/dl (14.0-18.0); Mean Corpuscular HGB Conc 32 g/dl (31-36); Mean Corpuscular Hemoglobin 31 pg (27-31); Mean Corpuscular Volume 95 fL (80-94); Mean Platelet Volume 9 um3 (7.4-10.4); Red Blood Count 4.11 10^6/ul (4.0-5.4); Red Cell Distribution Width 15 % (10.5-15); White Blood Count 8.1 10^3/ul (3.5-10.8)
[2016-09-13 05:53] LABS: BUN/Creatinine Ratio 21.9 (8-20); Calcium 8.9 mg/dL (8.6-10.3); EGFR African American 86.3 (>60); EGFR Non-African American 67.1 (>60); Potassium 3.8 mmol/L (3.5-5.0)
[2016-09-13] MEDS: Furosemide TAB* 20 MG PO SCH (09:18)
[2016-09-13] MEDS: guaiFENesin ER TAB 600 MG PO SCH ×2 (09:18→21:17)
[2016-09-13] MEDS: Finasteride TAB* 5 MG PO SCH (09:18)
[2016-09-13] MEDS: predniSONE TAB* 10 MG PO SCH (09:18)
[2016-09-13] MEDS: Ascorbic Acid TAB* 500 MG PO SCH (09:18)
[2016-09-13] MEDS ORDERED: Morphine INJ* 2 MG/ML 1 ML SYRINGE IV PRN (11:49)
[2016-09-13] MEDS: Magnesium Hydroxide LIQ* 30 ML UDC PO PRN ×2 (11:55→16:17)
--- NOTE | 2016-09-13 12:02 | PN ---
Subjective Date of Service: 09/13/16 Interval History: Pt states he is feeling terrible. He states that his abdomen is very distended and uncomfortable. He has not had a BM since before being admitted and would like MOM but has not received it yet. He feels that no test results have been relayed to him despite me talking with him yesterday. He is frustrated that his breathing is no better. He thinks his current issues are life threatening. Objective Active Medications: Albuterol (Ventolin 2.5 Mg/3 Ml Neb.Marie*) 2.5 mg INH RT.[id number] AWAKE [facility] Last Admin: 09/13/16 11:45 Dose: 2.5 mg Ascorbic Acid (Vitamin C Tab*) 500 mg PO DAILY [facility] Last Admin: 09/13/16 09:18 Dose: 500 mg Finasteride (Proscar Tab*) 5 mg PO QAM [facility] Last Admin: 09/13/16 09:18 Dose: 5 mg Furosemide (Lasix Tab*) 20 mg PO EVERY OTHER DAY [facility] Last Admin: 09/13/16 09:18 Dose: 20 mg Guaifenesin (Mucinex*) 600 mg PO BID [facility] Last Admin: 09/13/16 09:18 Dose: 600 mg Heparin Sodium (Porcine) (Heparin Vial(*)) 5,000 units SUBCUT Q8HR [facility] Last Admin: 09/13/16 04:55 Dose: 5,000 units Ibuprofen (Motrin Tab*) 400 mg PO Q6HR PRN PRN Reason: pain Ketorolac Tromethamine (Toradol Inj*) 15 mg IV PUSH Q6H PRN PRN Reason: SEVERE PAIN Last Admin: 09/12/16 11:51 Dose: 15 mg Magnesium Hydroxide (Milk Of Magnesia Liq*) 30 ml PO BID PRN PRN Reason: CONSTIPATION Mirtazapine (Remeron Tab*) 15 mg PO BEDTIME [facility] Last Admin: 09/12/16 19:21 Dose: 15 mg Morphine Sulfate (Morphine Inj (Syringe)*) 2 mg IV Q4H PRN PRN Reason: air hunger Prednisone (Deltasone Tab*) 30 mg PO DAILY [facility] Last Admin: 09/13/16 09:18 Dose: 30 mg Temazepam (Restoril Cap*) 30 mg PO BEDTIME PRN PRN Reason: SLEEP Tiotropium [place] (Spiriva Cap.Inh*) 1 cap INH BEDTIME [facility] Last Admin: 09/12/16 19:20 Dose: 1 cap Vital Signs 09/12/16 09/12/16 09/12/16 12:44 13:24 15:30 Temperature 98.2 F 98.5 F Pulse Rate 106 107 96 Respiratory 18 28 20 Rate Blood Pressure 104/62 101/63 (mmHg) O2 Sat by Pulse 94 97 98 Oximetry 09/12/16 09/12/16 09/12/16 15:40 15:44 15:51 Temperature Pulse Rate 93 94 Respiratory 16 16 Rate Blood Pressure (mmHg) O2 Sat by Pulse 94 93 93 Oximetry 09/12/16 09/12/16 09/12/16 18:12 18:32 20:24 Temperature 97.5 F Pulse Rate 87 Respiratory 20 20 22 Rate Blood Pressure 106/61 (mmHg) O2 Sat by Pulse 96 Oximetry 09/13/16 09/13/16 09/13/16 00:43 03:55 07:20 Temperature 98.2 F 97.4 F Pulse Rate 81 83 102 Respiratory 20 16 18 Rate Blood Pressure 114/66 107/61 (mmHg) O2 Sat by Pulse 96 93 84 Oximetry 09/13/16 09/13/16 09/13/16 07:46 08:00 11:17 Temperature 98.4 F 98.5 F Pulse Rate 114 113 Respiratory 28 18 32 Rate Blood Pressure 131/64 100/56 (mmHg) O2 Sat by Pulse 87 90 Oximetry Oxygen Devices in Use Now: Nasal Cannula - 6L-90% Appearance: Elderly male lying in bed, appears mildly tachypnic but in NAD Eyes: No Scleral Icterus Ears/Nose/Mouth/Throat: Mucous Membranes Moist Respiratory: Symmetrical Chest Expansion and Respiratory Effort, - - diminished breath sounds in all lung gilliam, slight RLL crackles Cardiovascular: NL Sounds; No Murmurs; No JVD, No Edema, - - tachycardic but regular Abdominal: NL Sounds; No Tenderness; No Distention Extremities: No Clubbing, Cyanosis Skin: No Rash or Ulcers, No Nodules or Sclerosis Neurological: Alert and Oriented x 3, - - frustrated Result Diagrams: 09/13/16 05:12 09/13/16 05:12 Additional Lab and Data: Lab Results 09/11/16 09/11/16 09/11/16 Range/Units 09:25 09:25 09:25 WBC 16.9 H (3.5-10.8) 10^3/ul RBC 4.66 (4.0-5.4) 10^6/ul Hgb 14.2 (14.0-18.0) g/dl Hct 44 (42-52) % MCV 95 H (80-94) fL MCH 31 (27-31) pg MCHC 32 (31-36) g/dl RDW 15 (10.5-15) % Plt Count 165 (150-450) 10^3/ul MPV 9 (7.4-10.4) um3 Immature Gran % (Auto) 4 (0-9) % Neut % (Auto) 84.8 H (38-83) % Lymph % (Auto) 10.0 L (25-47) % [place] % (Auto) 4.5 (1-9) % Eos % (Auto) 0.1 (0-6) % Baso % (Auto) 0.6 (0-2) % Absolute Neuts (auto) 14.3 H (1.5-7.7) 10^3/ul Absolute Lymphs (auto) 1.7 (1.0-4.8) 10^3/ul Absolute Monos (auto) 0.8 (0-0.8) 10^3/ul Absolute Eos (auto) 0 (0-0.6) 10^3/ul Absolute Basos (auto) 0.1 (0-0.2) 10^3/ul Absolute Nucleated RBC 0.01 10^3/ul Neutrophils % 84 H (38-83) % Band Neutrophils % 3 (0-8) % Lymphocytes % 6 L (25-47) % Reactive Lymphs % 1 (0-6) % Monocytes % 5 (0-13) % Myelocytes % 1 (0-1) % Nucleated RBC % 0 Normal RBC Morphology Normal (Normal) INR (Anticoag Therapy) (0.89-1.11) D-Dimer, Quantitative (Less Than 230) ng/mL Sodium 139 (133-145) mmol/L Potassium 3.7 (3.5-5.0) mmol/L Chloride 103 (101-111) mmol/L Carbon Dioxide 26 (22-32) mmol/L Anion Gap 10 (2-11) mmol/L BUN 24 (6-24) mg/dL Creatinine 1.11 (0.67-1.17) mg/dL Est GFR ( Amer) 81.0 (>60) Est GFR (Non-Af Amer) 63.0 (>60) BUN/Creatinine Ratio 21.6 H (8-20) Glucose 115 H (70-100) mg/dL Lactic Acid 2.6 H* (0.5-2.0) mmol/L Calcium 9.2 (8.6-10.3) mg/dL Total Bilirubin 0.60 (0.2-1.0) mg/dL AST 20 (13-39) U/L ALT 26 (7-52) U/L Alkaline Phosphatase 75 (34-104) U/L Troponin I 0.01 (<0.04) ng/mL B-Natriuretic Peptide ( - 100) pg/mL Total Protein 6.3 L (6.4-8.9) g/dL Albumin 3.4 (3.2-5.2) g/dL Globulin 2.9 (2-4) g/dL Albumin/Globulin Ratio 1.2 (1-3) 09/11/16 09/11/16 Range/Units 09:25 09:25 WBC (3.5-10.8) 10^3/ul RBC (4.0-5.4) 10^6/ul Hgb (14.0-18.0) g/dl Hct (42-52) % MCV (80-94) fL MCH (27-31) pg MCHC (31-36) g/dl RDW (10.5-15) % Plt Count (150-450) 10^3/ul MPV (7.4-10.4) um3 Immature Gran % (Auto) (0-9) % Neut % (Auto) (38-83) % Lymph % (Auto) (25-47) % [place] % (Auto) (1-9) % Eos % (Auto) (0-6) % Baso % (Auto) (0-2) % Absolute Neuts (auto) (1.5-7.7) 10^3/ul Absolute Lymphs (auto) (1.0-4.8) 10^3/ul Absolute Monos (auto) (0-0.8) 10^3/ul Absolute Eos (auto) (0-0.6) 10^3/ul Absolute Basos (auto) (0-0.2) 10^3/ul Absolute Nucleated RBC 10^3/ul Neutrophils % (38-83) % Band Neutrophils % (0-8) % Lymphocytes % (25-47) % Reactive Lymphs % (0-6) % Monocytes % (0-13) % Myelocytes % (0-1) % Nucleated RBC % Normal RBC Morphology (Normal) INR (Anticoag Therapy) 0.80 L (0.89-1.11) D-Dimer, Quantitative 599 H (Less Than 230) ng/mL Sodium (133-145) mmol/L Potassium (3.5-5.0) mmol/L Chloride (101-111) mmol/L Carbon Dioxide (22-32) mmol/L Anion Gap (2-11) mmol/L BUN (6-24) mg/dL Creatinine (0.67-1.17) mg/dL Est GFR ( Amer) (>60) Est GFR (Non-Af Amer) (>60) BUN/Creatinine Ratio (8-20) Glucose (70-100) mg/dL Lactic Acid (0.5-2.0) mmol/L Calcium (8.6-10.3) mg/dL Total Bilirubin (0.2-1.0) mg/dL AST (13-39) U/L ALT (7-52) U/L Alkaline Phosphatase (34-104) U/L Troponin I (<0.04) ng/mL B-Natriuretic Peptide 50 ( - 100) pg/mL Total Protein (6.4-8.9) g/dL Albumin (3.2-5.2) g/dL Globulin (2-4) g/dL Albumin/Globulin Ratio (1-3) Assess/Plan/Problems-Billing Mr Carrillo is an 86 yo M who has a h/o COPD utilizing O2 with sleep and exertion , PMR (recently had his prednisone dose increased), BPH and depression who presented to the ER with c/o chest pain and SOB as well as abdominal bloating. - Patient Problems (1) SOB (shortness of breath) Current Visit: Yes Status: Acute Code(s): R06.02 - SHORTNESS OF BREATH SNOMED Code(s): 089624910 Comment: No evidence of CHF (no response to lasix and echo without significant systolic dysfunction). Continue standing nebs, trial morphine for air hunger. Will get repeat CXR now as he states he is not improving. I have asked for Dr Monreal to consult. (2) Chest pain Current Visit: Yes Status: Acute Code(s): R07.9 - CHEST PAIN, UNSPECIFIED SNOMED Code(s): 50685570 Comment: This is non-cardiac chest pain. Continue prn pain control. (3) Tachycardia Current Visit: Yes Status: Acute Code(s): R00.0 - TACHYCARDIA, UNSPECIFIED SNOMED Code(s): 5894166 Comment: Pt remains tachycardic but last night did have improvement in his HR. I think currently his agitation may be contributing to his rapid HR. The standing nebs are likely contributing as well. Will not start rate lowering agent now as his BP is soft and he has had a normal HR last night. For now continue to monitor. (4) COPD (chronic obstructive pulmonary disease) Current Visit: Yes Status: Acute Code(s): J44.9 - CHRONIC OBSTRUCTIVE PULMONARY DISEASE, UNSPECIFIED SNOMED Code(s): 48911523 Comment: Continue current dose of prednisone and standing nebs. Dr. Monreal to consult. (5) Polymyalgia rheumatica Current Visit: Yes Status: Acute Code(s): M35.3 - POLYMYALGIA RHEUMATICA SNOMED Code(s): 93025634 Comment: The patient's prednisone dose was increased recently by his PCP for concerns of worsened PMR (he was having leg pain). Continue current dose of prednisone. (6) DVT prophylaxis Current Visit: Yes Status: Acute Code(s): GKY5715 - SNOMED Code(s): 720894764 Comment: SQ heparin (7) DNR (do not resuscitate) Current Visit: Yes Status: Acute
--- NOTE | 2016-09-13 12:49 | RAD ---
HISTORY: Progressive shortness of breath COMPARISONS: September 11, 2016 VIEWS: 2: Frontal dual-energy and lateral views of the chest. FINDINGS: CARDIOMEDIASTINAL SILHOUETTE: The cardiomediastinal silhouette is normal. ROSANNA: The rosanna are normal. PLEURA: There is blunting of left costophrenic angle LUNG PARENCHYMA: There has been interval development of patchy alveolar opacification of the left lung base. There is hyper inflation with atheromatous change. ABDOMEN: The upper abdomen is clear. There is no subphrenic gas. BONES AND SOFT TISSUES: No bone or soft tissue abnormalities are noted. OTHER: None. IMPRESSION: DEVELOPING LEFT LOWER LOBE ATELECTASIS VERSUS CONSOLIDATION WITH A SMALL LEFT PLEURAL EFFUSION. RECOMMEND FOLLOW-UP UNTIL RESOLUTION TO EXCLUDE UNDERLYING PULMONARY PARENCHYMAL PATHOLOGY
--- NOTE | 2016-09-13 12:50 | RAD ---
HISTORY: Abdominal distention COMPARISONS: April 03, 2015 VIEWS: Frontal views of the abdomen. FINDINGS: BOWEL: There is a nonspecific bowel gas pattern, with nondilated small bowel gas noted. There is a large amount of stool within the colon. CALCULI: There are no abnormal calculi. BONES AND SOFT TISSUES: The patient is status post left hip arthroplasty. Degenerative changes are noted of the spine OTHER FINDINGS: There is a small left pleural effusion with patchy airspace disease of the left lung base as described on the accompanying report of the chest. There is no subphrenic gas. IMPRESSION: NONSPECIFIC BOWEL GAS PATTERN. LARGE AMOUNT OF STOOL WITHIN THE COLON
[2016-09-13] MEDS ORDERED: Magnesium Hydroxide LIQ* 30 ML UDC PO ONE (15:37)
--- NOTE | 2016-09-13 17:06 | CONS ---
PULMONARY CONSULTATION REPORT: DATE OF CONSULT: 09/13/16 CONSULTATION REQUESTED BY: Dr. Berry. HISTORY OF PRESENT ILLNESS: The patient is an 86-year-old male with a history of COPD with recurrent COPD exacerbations, BPH, depression, insomnia who presented to the hospital for evaluation of chest pain and shortness of breath. The patient recently was treated outpatient with prednisone and Levaquin for bronchitis. The patient reported no improvement in symptoms. Also had right- sided chest pain in the lateral aspect of the chest and midsternal area attributed to coughing. Symptoms have been progressively worsening without much improvement and he decided to come in to the emergency room for further evaluation. The patient reports significant chest congestion and productive cough worsened from baseline. The patient also reports worsening shortness of breath from his baseline. The patient denies fevers; however, reports night sweats. The patient also reports nausea and constipation. The patient has been using his DuoNeb and inhalers without much improvement. The patient was noted to have persistent tachycardia since admission. The patient had CT of the chest performed on admission which was personally reviewed by me in comparison with his prior imaging studies. The patient noted to have significant emphysematous changes along with patchy airspace opacities at the bases, pneumonia versus aspiration versus basilar atelectasis. No significant mediastinal or hilar adenopathy was noted. The patient had elevated white count upon admission which is normal today. The patient's lactic acid was elevated at 2.6. PAST MEDICAL HISTORY: 1. COPD, on home O2. 2. BPH. 3. Depression. 4. Insomnia. PAST SURGICAL HISTORY: 1. Total hip replacement. 2. Hernias with small bowel surgery. 3. Left orchidectomy. MEDICATIONS: At home: 1. Prednisone 30 mg daily, on tapering doses. 2. Guaifenesin and Codeine 5 mL q.4 hours. 3. Spiriva 1 capsule daily. 4. Temazepam 30 mg at bedtime for insomnia. 5. Mirtazapine 15 mg at bedtime. 6. Milk of magnesia 5 mg 3 times a day for constipation. 7. Albuterol 1 puff q.4 hours as needed. 8. Lasix 20 mg every other day. 9. Breo 1 puff daily. 10. Finasteride 5 mg daily. 11. Vitamin C 500 mg daily. ALLERGIES: PENICILLIN and STATINS. FAMILY HISTORY: Mother with coronary artery disease, brother with Alzheimer's. SOCIAL HISTORY: Former smoker, [id number] smoking history. Denies alcohol or other drug abuse. REVIEW OF SYSTEMS: A 14-point review of systems was performed. PHYSICAL EXAM: The patient in bed in no apparent distress. Vital Signs: Temperature 98.5, pulse 110 beats per minute, respiratory rate 18 per minute, O2 sat 96% on 5 L, blood pressure 100/50. HEENT: Pupils equal, reactive to light. Mucous membranes moist. Lungs: Clear to auscultation. No prolonged expiratory phase. Cardiovascular: Tachycardia. S1, S2 present. Abdomen: Distended, nontender. No rebound. Bowel sounds are diminished. Extremities: No cyanosis, clubbing, or edema. Neurologic: Alert, awake, oriented x3. No focal deficits. Skin: Warm. No rash or bruits. DIAGNOSTIC STUDIES/LAB DATA: WBC count 8.1, hemoglobin 12.6, hematocrit 39, platelet count 146,000. INR 0.8. Sodium 136, potassium 3.8, chloride 102, bicarb 31, BUN 23, creatinine 1.05, lactic acid 2.5, BNP 50. CT of chest as described above in HPI. IMPRESSION/RECOMMENDATIONS: 86-year-old male with significant chronic obstructive pulmonary disease with recurrent exacerbations, failed outpatient therapy admitted with worsening shortness of breath with no improvement after recent treatment for chronic obstructive pulmonary disease exacerbation. No evidence of pulmonary embolism. The patient appears to have basilar pneumonia versus atelectasis. He has distended abdomen which might be causing basilar atelectasis and also contributing to the shortness of breath. He is receiving milk of magnesia. Management of constipation to help relieve distention. Continue with O2 supplementation, titrate FIO2 to maintain oxygen saturation around 92%. Continue with bronchodilators. Thank you for allowing me to participate in the care of your patient. Will follow up with you. [id number]/[facility] #: [id number] YFN
[2016-09-13] MEDS: Meropenem 1 GM PREMIX(*) 1 GM/50 ML BAG IV SCH (17:17)
[2016-09-13] MEDS: Tiotropium CAP.INH* CAP.INH/18 MCG INH SCH (20:22)
[2016-09-13] MEDS: Mirtazapine TAB* 15 MG PO SCH (21:18)
[2016-09-13] MEDS: Temazepam CAP* 15 MG PO PRN (21:18)
[2016-09-14] MEDS: Meropenem 1 GM PREMIX(*) 1 GM/50 ML BAG IV SCH ×3 (00:46→16:19)
[2016-09-14] MEDS: Albuterol 2.5 MG/3 ML NEB.SOL* (0.083%) INH SCH ×6 (03:13→22:43)
[2016-09-14] MEDS: Heparin VIAL(*) 5000 UNITS/ML VIAL (FIVE THOUSAND) SUBCUT SCH ×3 (05:50→21:45)
[2016-09-14] MEDS: predniSONE TAB* 10 MG PO SCH (08:40)
[2016-09-14] MEDS: Ascorbic Acid TAB* 500 MG PO SCH (08:41)
[2016-09-14] MEDS: guaiFENesin ER TAB 600 MG PO SCH ×2 (08:42→20:26)
[2016-09-14] MEDS: Finasteride TAB* 5 MG PO SCH (08:42)
--- NOTE | 2016-09-14 09:47 | PN ---
Subjective Date of Service: 09/14/16 Interval History: Pt is feeling much better today but not quite good enough to go home today. He has been coughing more and the cough is causing chest discomfort. He finally had a BM and he feels much better after that. Additionally he states he slept well last night. Objective Active Medications: Albuterol (Ventolin 2.5 Mg/3 Ml Neb.Marie*) 2.5 mg INH [id number] AWAKE [facility] Last Admin: 09/14/16 07:54 Dose: 2.5 mg Ascorbic Acid (Vitamin C Tab*) 500 mg PO DAILY [facility] Last Admin: 09/14/16 08:41 Dose: 500 mg Finasteride (Proscar Tab*) 5 mg PO QAM [facility] Last Admin: 09/14/16 08:42 Dose: 5 mg Furosemide (Lasix Tab*) 20 mg PO EVERY OTHER DAY [facility] Last Admin: 09/13/16 09:18 Dose: 20 mg Guaifenesin (Mucinex*) 600 mg PO BID [facility] Last Admin: 09/14/16 08:42 Dose: 600 mg Heparin Sodium (Porcine) (Heparin Vial(*)) 5,000 units SUBCUT Q8HR [facility] Last Admin: 09/14/16 05:50 Dose: 5,000 units Meropenem (Merrem 1 Gm Premix(*)) 1 gm in 50 mls @ 100 mls/hr IV Q8H [facility] Last Admin: 09/14/16 08:42 Dose: 100 mls/hr Ibuprofen (Motrin Tab*) 400 mg PO Q6HR PRN PRN Reason: pain Magnesium Hydroxide (Milk Of Magnesia Liq*) 30 ml PO BID PRN PRN Reason: CONSTIPATION Last Admin: 09/13/16 11:55 Dose: 30 ml Mirtazapine (Remeron Tab*) 15 mg PO BEDTIME [facility] Last Admin: 09/13/16 21:18 Dose: 15 mg Morphine Sulfate (Morphine Inj (Syringe)*) 2 mg IV Q4H PRN PRN Reason: air hunger Prednisone (Deltasone Tab*) 30 mg PO DAILY [facility] Last Admin: 09/14/16 08:40 Dose: 30 mg Temazepam (Restoril Cap*) 30 mg PO BEDTIME PRN PRN Reason: SLEEP Last Admin: 09/13/16 21:18 Dose: 30 mg Tiotropium [place] (Spiriva Cap.Inh*) 1 cap INH BEDTIME [facility] Last Admin: 09/13/16 20:22 Dose: 1 cap Vital Signs 09/13/16 09/13/16 09/13/16 11:17 11:45 15:36 Temperature 98.5 F Pulse Rate 113 110 92 Respiratory 32 18 16 Rate Blood Pressure 100/56 (mmHg) O2 Sat by Pulse 90 96 98 Oximetry 09/13/16 09/13/16 09/13/16 16:05 16:10 20:00 Temperature 98.0 F Pulse Rate 102 99 Respiratory 20 20 16 Rate Blood Pressure 85/56 101/52 (mmHg) O2 Sat by Pulse 94 91 Oximetry 09/13/16 09/13/16 09/14/16 20:07 20:22 00:08 Temperature 98.6 F 97.6 F Pulse Rate 96 91 86 Respiratory 20 16 20 Rate Blood Pressure 97/58 113/68 (mmHg) O2 Sat by Pulse 91 92 93 Oximetry 09/14/16 09/14/16 09/14/16 03:03 07:30 08:00 Temperature 98.3 F 98.8 F Pulse Rate 88 91 Respiratory 18 16 20 Rate Blood Pressure 108/66 105/59 (mmHg) O2 Sat by Pulse 94 97 Oximetry 09/14/16 08:06 Temperature Pulse Rate 78 Respiratory 12 Rate Blood Pressure (mmHg) O2 Sat by Pulse 95 Oximetry Oxygen Devices in Use Now: Nasal Cannula - 3L-95% Appearance: Elderly male sitting up in bed, NAD Eyes: No Scleral Icterus Ears/Nose/Mouth/Throat: Mucous Membranes Moist Respiratory: Symmetrical Chest Expansion and Respiratory Effort, Clear to Auscultation - few RLL crackles Cardiovascular: NL Sounds; No Murmurs; No JVD, RRR, No Edema Abdominal: NL Sounds; No Tenderness; No Distention Extremities: No Clubbing, Cyanosis Skin: No Rash or Ulcers, No Nodules or Sclerosis Neurological: Alert and Oriented x 3 Result Diagrams: 09/13/16 05:12 09/13/16 05:12 Additional Lab and Data: Lab Results 09/11/16 09/11/16 09/11/16 Range/Units 09:25 09:25 09:25 WBC 16.9 H (3.5-10.8) 10^3/ul RBC 4.66 (4.0-5.4) 10^6/ul Hgb 14.2 (14.0-18.0) g/dl Hct 44 (42-52) % MCV 95 H (80-94) fL MCH 31 (27-31) pg MCHC 32 (31-36) g/dl RDW 15 (10.5-15) % Plt Count 165 (150-450) 10^3/ul MPV 9 (7.4-10.4) um3 Immature Gran % (Auto) 4 (0-9) % Neut % (Auto) 84.8 H (38-83) % Lymph % (Auto) 10.0 L (25-47) % [place] % (Auto) 4.5 (1-9) % Eos % (Auto) 0.1 (0-6) % Baso % (Auto) 0.6 (0-2) % Absolute Neuts (auto) 14.3 H (1.5-7.7) 10^3/ul Absolute Lymphs (auto) 1.7 (1.0-4.8) 10^3/ul Absolute Monos (auto) 0.8 (0-0.8) 10^3/ul Absolute Eos (auto) 0 (0-0.6) 10^3/ul Absolute Basos (auto) 0.1 (0-0.2) 10^3/ul Absolute Nucleated RBC 0.01 10^3/ul Neutrophils % 84 H (38-83) % Band Neutrophils % 3 (0-8) % Lymphocytes % 6 L (25-47) % Reactive Lymphs % 1 (0-6) % Monocytes % 5 (0-13) % Myelocytes % 1 (0-1) % Nucleated RBC % 0 Normal RBC Morphology Normal (Normal) INR (Anticoag Therapy) (0.89-1.11) D-Dimer, Quantitative (Less Than 230) ng/mL Sodium 139 (133-145) mmol/L Potassium 3.7 (3.5-5.0) mmol/L Chloride 103 (101-111) mmol/L Carbon Dioxide 26 (22-32) mmol/L Anion Gap 10 (2-11) mmol/L BUN 24 (6-24) mg/dL Creatinine 1.11 (0.67-1.17) mg/dL Est GFR ( Amer) 81.0 (>60) Est GFR (Non-Af Amer) 63.0 (>60) BUN/Creatinine Ratio 21.6 H (8-20) Glucose 115 H (70-100) mg/dL Lactic Acid 2.6 H* (0.5-2.0) mmol/L Calcium 9.2 (8.6-10.3) mg/dL Total Bilirubin 0.60 (0.2-1.0) mg/dL AST 20 (13-39) U/L ALT 26 (7-52) U/L Alkaline Phosphatase 75 (34-104) U/L Troponin I 0.01 (<0.04) ng/mL B-Natriuretic Peptide ( - 100) pg/mL Total Protein 6.3 L (6.4-8.9) g/dL Albumin 3.4 (3.2-5.2) g/dL Globulin 2.9 (2-4) g/dL Albumin/Globulin Ratio 1.2 (1-3) 09/11/16 09/11/16 Range/Units 09:25 09:25 WBC (3.5-10.8) 10^3/ul RBC (4.0-5.4) 10^6/ul Hgb (14.0-18.0) g/dl Hct (42-52) % MCV (80-94) fL MCH (27-31) pg MCHC (31-36) g/dl RDW (10.5-15) % Plt Count (150-450) 10^3/ul MPV (7.4-10.4) um3 Immature Gran % (Auto) (0-9) % Neut % (Auto) (38-83) % Lymph % (Auto) (25-47) % [place] % (Auto) (1-9) % Eos % (Auto) (0-6) % Baso % (Auto) (0-2) % Absolute Neuts (auto) (1.5-7.7) 10^3/ul Absolute Lymphs (auto) (1.0-4.8) 10^3/ul Absolute Monos (auto) (0-0.8) 10^3/ul Absolute Eos (auto) (0-0.6) 10^3/ul Absolute Basos (auto) (0-0.2) 10^3/ul Absolute Nucleated RBC 10^3/ul Neutrophils % (38-83) % Band Neutrophils % (0-8) % Lymphocytes % (25-47) % Reactive Lymphs % (0-6) % Monocytes % (0-13) % Myelocytes % (0-1) % Nucleated RBC % Normal RBC Morphology (Normal) INR (Anticoag Therapy) 0.80 L (0.89-1.11) D-Dimer, Quantitative 599 H (Less Than 230) ng/mL Sodium (133-145) mmol/L Potassium (3.5-5.0) mmol/L Chloride (101-111) mmol/L Carbon Dioxide (22-32) mmol/L Anion Gap (2-11) mmol/L BUN (6-24) mg/dL Creatinine (0.67-1.17) mg/dL Est GFR ( Amer) (>60) Est GFR (Non-Af Amer) (>60) BUN/Creatinine Ratio (8-20) Glucose (70-100) mg/dL Lactic Acid (0.5-2.0) mmol/L Calcium (8.6-10.3) mg/dL Total Bilirubin (0.2-1.0) mg/dL AST (13-39) U/L ALT (7-52) U/L Alkaline Phosphatase (34-104) U/L Troponin I (<0.04) ng/mL B-Natriuretic Peptide 50 ( - 100) pg/mL Total Protein (6.4-8.9) g/dL Albumin (3.2-5.2) g/dL Globulin (2-4) g/dL Albumin/Globulin Ratio (1-3) Assess/Plan/Problems-Billing Mr Carrillo is an 86 yo M who has a h/o COPD utilizing O2 with sleep and exertion , PMR (recently had his prednisone dose increased), BPH and depression who presented to the ER with c/o chest pain and SOB as well as abdominal bloating. - Patient Problems (1) SOB (shortness of breath) Current Visit: Yes Status: Acute Code(s): R06.02 - SHORTNESS OF BREATH SNOMED Code(s): 142507431 Comment: Improved today. CXR shows RLL infiltrate so I started meropenem yesterday. With this the patient is finally feeling better. He appears to have failed levaquin as an outpatient. Continue to wean down O2 to 2L (home setting) . (2) Chest pain Current Visit: Yes Status: Acute Code(s): R07.9 - CHEST PAIN, UNSPECIFIED SNOMED Code(s): 94119092 Comment: This is non-cardiac chest pain. Continue prn pain control. (3) Tachycardia Current Visit: Yes Status: Acute Code(s): R00.0 - TACHYCARDIA, UNSPECIFIED SNOMED Code(s): 7620002 Comment: Tachycardia is improved today with initiation of meropenem for possible pna. Continue to monitor. (4) COPD (chronic obstructive pulmonary disease) Current Visit: Yes Status: Acute Code(s): J44.9 - CHRONIC OBSTRUCTIVE PULMONARY DISEASE, UNSPECIFIED SNOMED Code(s): 41058372 Comment: Continue current dose of prednisone and standing nebs. No signs of exacerbation at this time. (5) Polymyalgia rheumatica Current Visit: Yes Status: Acute Code(s): M35.3 - POLYMYALGIA RHEUMATICA SNOMED Code(s): 68089142 Comment: The patient's prednisone dose was increased recently by his PCP for concerns of worsened PMR (he was having leg pain). Continue current dose of prednisone. (6) DVT prophylaxis Current Visit: Yes Status: Acute Code(s): MFI1964 - SNOMED Code(s): 687176084 Comment: SQ heparin (7) DNR (do not resuscitate) Current Visit: Yes Status: Acute
[2016-09-14] MEDS: Ibuprofen TAB* 400 MG PO PRN (14:36)
[2016-09-14] MEDS: Tiotropium CAP.INH* CAP.INH/18 MCG INH SCH (20:05)
[2016-09-14] MEDS: Mirtazapine TAB* 15 MG PO SCH (20:26)
[2016-09-14] MEDS: Temazepam CAP* 15 MG PO PRN (20:26)
[2016-09-15] MEDS: Meropenem 1 GM PREMIX(*) 1 GM/50 ML BAG IV SCH ×2 (00:31→07:20)
[2016-09-15] MEDS: Albuterol 2.5 MG/3 ML NEB.SOL* (0.083%) INH SCH ×3 (03:19→11:35)
[2016-09-15] MEDS: Heparin VIAL(*) 5000 UNITS/ML VIAL (FIVE THOUSAND) SUBCUT SCH ×2 (05:12→14:17)
[2016-09-15] MEDS: Ibuprofen TAB* 400 MG PO PRN ×2 (07:18→14:13)
[2016-09-15 09:04] VITALS: BP 110/64
[2016-09-15] MEDS: Furosemide TAB* 20 MG PO SCH (09:04)
[2016-09-15] MEDS: Finasteride TAB* 5 MG PO SCH (09:04)
[2016-09-15] MEDS: predniSONE TAB* 10 MG PO SCH (09:04)
[2016-09-15] MEDS: Ascorbic Acid TAB* 500 MG PO SCH (09:04)
[2016-09-15] MEDS: guaiFENesin ER TAB 600 MG PO SCH (09:05)
--- NOTE | 2016-09-15 14:33 | PN ---
Progress Note - Progress Note Note: Pulm consult f/u note 09/15/16. Pt seen and examined at bedside. Pt reports no signficant improvement in his sx. He is vague, says I dont feel very good. Anxious to go home Active Medications Generic Name Dose Route Start Last Admin Trade Name Freq PRN Reason Stop Dose Admin Albuterol 2.5 mg 09/12/16 11:00 09/15/16 11:35 Ventolin 2.5 Mg/3 Ml Neb.Marie* INH 2.5 mg [id number] AWAKE APOORVA Administration Ascorbic Acid 500 mg 09/12/16 09:00 09/15/16 09:04 Vitamin C Tab* PO 500 mg DAILY APOORVA Administration Finasteride 5 mg 09/12/16 09:00 09/15/16 09:04 Proscar Tab* PO 5 mg QAM APOORVA Administration Furosemide 20 mg 09/13/16 09:00 09/15/16 09:04 Lasix Tab* PO 20 mg EVERY OTHER DAY APO[facility] Administration Guaifenesin 600 mg 09/11/16 15:00 09/15/16 09:05 Mucinex* PO 600 mg BID APOORVA Administration Heparin Sodium (Porcine) 5,000 units 09/11/16 22:00 09/15/16 14:17 Heparin Vial(*) SUBCUT Not Given Q8HR APO[facility]VA Meropenem 1 gm in 50 mls @ 100 mls/hr 09/13/16 16:00 09/15/16 07:20 Merrem 1 Gm Premix(*) IV 100 mls/hr Q8H AP[facility] Administration Ibuprofen 400 mg 09/11/16 14:27 09/15/16 14:13 Motrin Tab* PO 400 mg Q6HR PRN Administration pain Magnesium Hydroxide 30 ml 09/11/16 14:27 09/13/16 11:55 Milk Of Magnesia Liq* PO 30 ml BID PRN Administration CONSTIPATION Mirtazapine 15 mg 09/11/16 21:00 09/14/16 20:26 Remeron Tab* PO 15 mg BEDTIME APOORVA Administration Morphine Sulfate 2 mg 09/13/16 11:49 09/15/16 02:14 Morphine Inj (Syringe)* IV 2 mg Q4H PRN Administration air hunger Prednisone 30 mg 09/12/16 09:00 09/15/16 09:04 Deltasone Tab* PO 30 mg DAILY APO[facility]VA Administration Temazepam 30 mg 09/11/16 14:27 09/14/16 20:26 Restoril Cap* PO 30 mg BEDTIME PRN Administration SLEEP Tiotropium [place] 1 cap 09/11/16 21:00 09/14/16 20:05 Spiriva Cap.Inh* INH Not Given BEDTIME APOORVA Vital Signs Temp Pulse Resp BP Pulse Ox 98.0 F 89 12 110/64 95 09/15/16 08:06 09/15/16 11:37 09/15/16 11:37 09/15/16 08:06 09/15/16 11:37 Gen: Elderly male sitting up in bed in NAD HEENT: No Scleral Icterus, Mucous Membranes Moist Respiratory: End expiratory wheeze, scaterred Cardiovascular: NL Sounds; No Murmurs; No JVD, RRR, No Edema Abdominal: NL Sounds; No Tenderness; No Distention Extremities: No Clubbing, Cyanosis Skin: No Rash or Ulcers, No Nodules or Sclerosis Neurological: Alert and Oriented x 3 I/R: 86 y o m with h/ severe COPD with recurrent admissions and ED visit, being treated for PNA and COPD exacerbation Pt reports no change in sx, probably it might not change signficantly from his current level He had good bowel movement yesterday Will c/w nebulizers Pt was started on Meropenem yesterday, pt to be d/florian today with home abx C/w O2 supplementation
--- NOTE | 2016-09-16 02:51 | DS ---
CC: Yolanda Monreal MD; David Issa MD * DISCHARGE SUMMARY: DATE OF ADMISSION: 09/11/16 DATE OF DISCHARGE: 09/15/16 PRIMARY CARE PROVIDER: David Issa MD PRINCIPAL DIAGNOSIS: Chronic obstructive pulmonary disease exacerbation with possible pneumonia. SECONDARY DIAGNOSES: 1. Severe chronic obstructive pulmonary disease. 2. Constipation. 3. Depression. 4. Polymyalgia rheumatica. DISCHARGE MEDICATIONS: 1. Prednisone 30 mg p.o. daily. 2. Robitussin AC 5 mL p.o. q.4 hours p.r.n. cough. 3. Spiriva 1 puff inhaled daily. 4. Temazepam 30 mg p.o. q.h.s. p.r.n. insomnia. 5. Remeron 15 mg p.o. q.h.s. 6. Milk of magnesia 5 mL p.o. b.i.d. p.r.n. constipation. 7. Albuterol 2 puffs inhaled q.4 hours p.r.n. shortness of breath. 8. Ibuprofen 400 mg p.o. q.6 hours p.r.n. pain. 9. Lasix 20 mg p.o. every other day. 10. Breo Ellipta 100/25 one puff inhaled daily. 11. Finasteride 5 mg p.o. daily. 12. Ascorbic acid 500 mg p.o. daily. 13. Guaifenesin ER 600 mg p.o. b.i.d. 14. [place] 5/325 one tab p.o. q.4 hours p.r.n. pain. 15. Clarithromycin 500 mg p.o. b.i.d. x5 days. HOSPITAL COURSE: Mr. Carrillo is an 86-year-old male with a history of severe COPD who presented to the emergency room on 09/11/16 with complaints of chest pain and shortness of breath. The patient has been having ongoing symptoms of shortness of breath and despite being treated with Levaquin as an outpatient, continued to have progressive symptoms. The patient was admitted for evaluation of his chest pain and shortness of breath. Initially, it was felt that his shortness of breath was only related to pneumonia as he just completed a course of Levaquin. Despite this, the patient's symptoms continued to worsen during the course of the hospitalization and therefore he was started on meropenem. The patient did have marked improvement in his symptoms after initiating meropenem for a possible pneumonia. The patient will continue on clarithromycin for 5 more days. In terms of his COPD, he did not seem to be in an active exacerbation; however, I do suspect his severe COPD is likely what is giving him the significant shortness of breath and this may not improve. I did explain this to the patient. The patient's chest pain that he presented with seems to be likely costochondritis from vigorous coughing. By 09/15/16, the patient was feeling better. However, still not great, but wanted to go home. During the course of the hospitalization, constipation became a major issue for the patient. He complained of severe bloating of his abdomen. An x-ray was performed that revealed a copious amount of stool within the colon. He received milk of magnesia with good response. The patient has been instructed to continue with the milk of magnesia when home until his bowels cleared, then go on MiraLAX daily to help continue to prevent constipation. The patient has been maintained on his usual dose of prednisone 30 mg daily for his diagnosis of PMR. This high dose of prednisone did not seem to make any affect on his breathing during the course of his hospitalization. At the day of discharge, the patient was awake, alert and oriented, sitting up in bed with his oxygen in place, in no acute distress. Cardiac exam revealed a normal S1, S2 with a regular rate and rhythm. His lung sounds are diminished in all lung zones, though are slightly improved today compared to the day prior. Abdomen is soft, mildly distended, nontender. The patient had no lower extremity edema. At this point, the patient was felt to be stable for discharge home. FOLLOWUP CONCERNS: The patient is being discharged home today, 09/15/16. He is to follow up with Dr. Issa on 09/19/16 at 11:[address] Monreal within the next 1 month. ACTIVITY LEVEL: As tolerated. DIET: Regular. CONDITION ON DISCHARGE: Stable. TIME SPENT: 35 minutes were spent discharging this patient. [id number]/[facility] #: [id number] MTDD
== END 2016-09-15 15:20 | disposition home or self-care (01) | DRG 190 ==
LOC: ED 08:32 → MEDTELE 15:28 → OBSVTOIN 09-12 10:41
PROVIDERS: ADMIT Hospitalist; ATTEND Hospitalist
DX: J44.0 Chronic obstructive pulmonary disease with (acute) lower respiratory infection (principal); J18.9 Pneumonia, unspecified organism; K59.00 Constipation, unspecified; Z88.0 Allergy status to penicillin; Z88.1 Allergy status to other antibiotic agents; Z88.8 Allergy status to other drugs, medicaments and biological substances; I50.9 Heart failure, unspecified; N40.0 Benign prostatic hyperplasia without lower urinary tract symptoms; M19.90 Unspecified osteoarthritis, unspecified site; G43.909 Migraine, unspecified, not intractable, without status migrainosus; H26.9 Unspecified cataract; F32.9 Major depressive disorder, single episode, unspecified; Z96.642 Presence of left artificial hip joint; Z82.49 Family history of ischemic heart disease and other diseases of the circulatory system; Z81.8 Family history of other mental and behavioral disorders; Z87.891 Personal history of nicotine dependence; M35.3 Polymyalgia rheumatica; R00.0 Tachycardia, unspecified; R14.0 Abdominal distension (gaseous); Z66 Do not resuscitate; Z79.52 Long term (current) use of systemic steroids; M94.0 Chondrocostal junction syndrome [Tietze]; J44.1 Chronic obstructive pulmonary disease with (acute) exacerbation
CPT/HCPCS: 36415; 71020; 71275; 74020; 76705; 80048; 80053; 83605; 83880; 84484; 85025; 85027; 85379; 85610; 93005; 93306; 94640; 94760; A9270-GY; C8929; G0378; J1644; J1885; J1940; J2185; J2270; J2930; J7512; Q9967

== ENCOUNTER 2016-09-25 11:35 | Inpatient (IN) | payer MEDICARE, BC ==
[2016-09-25] MEDS ORDERED: NS 0.9% 1000 ML* 1,000 ML IV SCH ×2 (12:00→15:30)
[2016-09-25] MEDS ORDERED: Ciprofloxacin 400MG IVPREMIX(* 400 MG/200 ML BAG IVPB ONE (12:14)
[2016-09-25] MEDS ORDERED: Cefepime(*) 2 GM in NS 0.9% 50 ML* 50 ML IVPB ONE (12:14)
[2016-09-25] MEDS ORDERED: Albuterol/Ipratropium NEB.SOL* Albuterol 2.5 MG/Ipratropium 0.5 MG 3 ML INH ONE (12:14)
--- NOTE | 2016-09-25 12:14 | RAD ---
HISTORY: Shortness of breath COMPARISONS: January 13, 2017 VIEWS:1: Single frontal portable view of the chest at 12:00 PM FINDINGS: LINES AND TUBES: None. CARDIOMEDIASTINAL SILHOUETTE: The cardiomediastinal silhouette is normal for portable technique. PLEURA: The costophrenic angles are sharp. No pleural abnormalities are noted. LUNG PARENCHYMA: There has been interval development of patchy and confluent alveolar opacification of the left upper lung ABDOMEN: The upper abdomen is clear. There is no subphrenic gas. BONES AND SOFT TISSUES: No bone or soft tissue abnormalities are noted. IMPRESSION: THERE HAS BEEN INTERVAL INVOLVEMENT OF LEFT UPPER LUNG CONSOLIDATION. RECOMMEND FOLLOW-UP UNTIL RESOLUTION TO EXCLUDE UNDERLYING PULMONARY PARENCHYMAL PATHOLOGY
[2016-09-25] MEDS ORDERED: Albuterol/Ipratropium NEB.SOL* Albuterol 2.5 MG/Ipratropium 0.5 MG 3 ML ONE (12:16)
[2016-09-25 12:51] LABS: Hematocrit 36 % (42-52); Hemoglobin 11.8 g/dl (14.0-18.0); Mean Corpuscular HGB Conc 33 g/dl (31-36); Mean Corpuscular Hemoglobin 31 pg (27-31); Mean Corpuscular Volume 94 fL (80-94); Mean Platelet Volume 8 um3 (7.4-10.4); Red Blood Count 3.76 10^6/ul (4.0-5.4); Red Cell Distribution Width 15 % (10.5-15)
[2016-09-25 12:55] LABS: Comments Flag Yes
[2016-09-25 12:56] LABS: Add Diff/Slide Review? Slide Review Added
[2016-09-25 13:06] LABS: ALT 36 U/L (7-52); AST 29 U/L (13-39); Albumin 2.6 g/dL (3.2-5.2); Alkaline Phosphatase 103 U/L (34-104); Anion Gap 10 mmol/L (2-11); BUN/Creatinine Ratio 21.8 (8-20); Blood Urea Nitrogen 22 mg/dL (6-24); C Reactive Protein 479.56 mg/L (< 5.00); CO2 Carbon Dioxide 26 mmol/L (22-32); Calcium 9.6 mg/dL (8.6-10.3); Chloride 99 mmol/L (101-111); Creatine Kinase 47 U/L (10-223); EGFR African American 90.3 (>60); EGFR Non-African American 70.2 (>60); Globulin 4.3 g/dL (2-4); Glucose 110 mg/dL (70-100); Lipase < 10 U/L (11.0-82.0); Magnesium 2.4 mg/dL (1.9-2.7); Potassium 4.2 mmol/L (3.5-5.0); Sodium 135 mmol/L (133-145); Total Protein 6.9 g/dL (6.4-8.9)
[2016-09-25] MEDS ORDERED: methylPREDNISolone 125 MG* 2 ML VIAL IV ONE (13:11)
[2016-09-25] MEDS ORDERED: NS 0.9% 1000 ML* 2,000 ML IV ONE (13:11)
[2016-09-25 13:13] LABS: Troponin I 0.42 ng/mL (<0.04)
[2016-09-25] MEDS ORDERED: NS 0.9% 50 ML* 50 ML ONE (13:25)
[2016-09-25] MEDS ORDERED: Aspirin TAB* 325 MG PO ONE (13:29)
[2016-09-25] MEDS ORDERED: Bisacodyl SUPP* 10 MG SUPP PR PRN (15:13)
[2016-09-25] MEDS ORDERED: Albuterol HFA INHALER* 8 gm MDI INH PRN (15:13)
--- NOTE | 2016-09-25 15:32 | ED ---
Lexi Jenkins Auryana, scribed for Rohan Collado MD on 09/25/16 at 1222 . Respiratory - HPI Summary HPI Summary: 86 year old male present with worsening SOB s/p discharge from the hospital. Patient's significant other states that he was recently discharged and was at his worst 2 days ago. He also reports cough with productive castro/brown sputum, lower extremity edema, weakness, and chest pain. He denies any fevers. Patient was admitted to hospital after a 10 day stay for PNA and COPD. He was seen at Dr. Issa's office today and referred to the ED. Albuterol inhaler at home and is on prednisone. PMHx is significant for COPD. He is a former smoker. - History of Current Complaint Chief Complaint: EDShortnessOfBreath Stated Complaint: SOB/SENT BY [facility] Time Seen by Provider: 09/25/16 11:50 Hx Obtained From: Patient, Family/Teacher Hearing Impaired Onset/Duration: Gradual Onset, Lasting Days, Still Present Timing: Constant Initial Severity: Mild Current Severity: Moderate Pain Intensity: 5 Character: Cough (Productive), Dyspnea at Rest Sputum Amount: Moderate Sputum Color: Rust, Brown Associated Signs and Symptoms: SOB, Edema, Chest Pain with Cough, Edema - Allergy/Home Medications Allergies/Adverse Reactions: Allergies Allergy/AdvReac Type Severity Reaction Status Date / Time Penicillins [PCN] Allergy Severe Swelling Verified 08/31/16 05:58 Of Face,Lips,& Throat Sertraline Allergy Intermediate Rash And Verified 09/11/16 16:31 Itching Doxycycline Allergy Unknown Verified 08/31/16 05:58 Reaction Details Ezetimibe [From Zetia] Allergy See Comment Verified 09/11/16 16:31 Statins Allergy See Comment Verified 09/11/16 16:31 Home Medications: Home Medications Bisacodyl SUPP* [Dulcolax Supp*] 10 mg OK DAILY PRN 09/25/16 [History Confirmed 09/25/16] Dextromethorphan Polistirex [Robitussin 12 Hour Cough] 30 mg PO Q4HR PRN [History Confirmed 09/25/16] Fluticasone/Vilanterol MDI(NF) [Breo Ellipta MDI (NF)] 1 puff INH DAILY [History Confirmed 09/25/16] Ipratropium 0.5MG/2.5ML NEB* [Atrovent 0.5 MG NEB.YNES*] 0.5 mg INH TID PRN 09/25 [History Confirmed 09/25/16] Multivitamins/Minerals TAB* [Theragran/minerals TAB*] 1 tab PO DAILY 09/25/16 [ History Confirmed 09/25/16] Hampton-3 Fatty Acids (Nf) [Fish Oil (NF)] 1,000 mg PO DAILY 09/25/16 [History Confirmed 09/25/16] Triamcinolone 0.5% CREAM(NF) [Triamcinolone 0.5% CREAM*] 1 applic TOPICAL DAILY PRN 09/25/16 [History Confirmed 09/25/16] guaiFENesin ER TAB [Mucinex*] 600 mg PO BID PRN 09/25/16 [History Confirmed ] PMH/Surg Hx/FS Hx/Imm Hx Endocrine/Hematology History: Denies: Hx Diabetes, Hx Systemic Lupus Erythematosus Cardiovascular History: Reports: Hx Congestive Heart Failure Denies: Hx Cardiomegaly, Hx Hypertension, Hx Myocardial Infarction, Hx Pacemaker/ICD Respiratory History: Reports: Hx Chronic Obstructive Pulmonary Disease (COPD), Hx Pneumonia - TWICE 04/2015, Other Respiratory Problems/Disorders - PLEURACY IN 2010 Denies: Hx Asthma GI History: Reports: Hx Hiatal Hernia History: Reports: Hx Benign Prostatic Hyperplasia, Other Problems/ Disorders - testicle removed Denies: Hx Dialysis, Hx Kidney Stones, Hx Renal Disease Musculoskeletal History: Reports: Hx Arthritis - JOINTS, Other Musculoskeletal History - ,osteoarthritis, left hip replacement Denies: Hx Rheumatoid Arthritis Sensory History: Reports: Hx Cataracts, Hx Contacts or Glasses Denies: Hx Deafness, Hx Hearing Aid Opthamlomology History: Reports: Hx Cataracts, Hx Contacts or Glasses Neurological History: Reports: Hx Headaches, Hx Migraine - IN THE PAST, NOW MAYBE ONE PER YEAR, Other Neuro Impairments/Disorders - INSOMNIA Psychiatric History: Reports: Hx Depression - IN THE PAST, Hx Panic Disorder - Cancer History Hx Chemotherapy: No - Surgical History Surgery Procedure, Year, and Place: L total hip 2000, 3x hernia, testicle removed Hx Anesthesia Reactions: No Infectious Disease History: No Infectious Disease History: Denies: Traveled Outside the [place] in Last 30 Days - Family History Known Family History: Positive: Cardiac Disease - MOTHER, Other - ALZHEIMERS - BROTHER Negative: Diabetes - Social History Occupation: Retired Lives: With Family Alcohol Use: None Hx Substance Use: No Substance Use Type: Reports: None Hx Tobacco Use: Yes Smoking Status (MU): Former Smoker Type: Cigarettes Amount Used/How Often: 1ppd Length of Time of Smoking/Using Tobacco: 60 years Have You Smoked in the Last Year: No Review of Systems Constitutional: Negative Negative: Fever, Chills Eyes: Negative Negative: Erythema ENT: Negative Negative: Sore Throat Cardiovascular: Negative Negative: Chest Pain Positive: Shortness Of Breath, Cough Gastrointestinal: Negative Negative: Abdominal Pain, Vomiting, Nausea Genitourinary: Negative Musculoskeletal: Negative Negative: Myalgia, Edema Skin: Negative Negative: Rash Neurological: Negative, Other - no dizziness Psychological: Normal All Other Systems Reviewed And Are Negative: Yes Physical Exam - Summary Physical Exam Summary: Constitutional: Well-developed, Well-nourished, Alert. HENT: Normocephalic; Atraumatic Eyes: Conjunctiva normal Neck: Musculoskeletal ROM normal neck. (-) JVD, (-) Stridor, (-) Tracheal deviation Cardio: Rhythm regular, rate normal, Heart sounds normal; Intact distal pulses; The pedal pulses are 2+ and symmetric. Radial pulses are 2+ and symmetric. (-) Murmur Pulmonary/Chest wall: Effort normal. (+) Respiratory distress, (-) Wheezes, (-) Rales, Tachypnea, productive cough, Rhonchi in the left lower lung field Abd: Soft, (-) Tenderness, (-) Distension, (-) Guarding, (-) Rebound Musculoskeletal: (-) Edema Lymph: (-) Cervical adenopathy Neuro: Alert, Oriented x3 Psych: Mood and affect Normal Triage Information Reviewed: Yes Vital Signs On Initial Exam: Initial Vitals Temp Pulse Resp BP Pulse Ox 96.8 F 116 18 102/68 88 09/25/16 11:41 09/25/16 11:41 09/25/16 11:41 09/25/16 11:41 09/25/16 11:41 Vital Signs Reviewed: Yes Diagnostics - Vital Signs Vital Signs Temp Pulse Resp BP Pulse Ox 09/25/16 11:59 97.9 F 110 22 111/75 93 09/25/16 11:41 96.8 F 116 18 102/68 88 - Laboratory Result Diagrams: 09/25/16 12:35 09/25/16 12:35 Lab Statement: Any lab studies that have been ordered have been reviewed, and results considered in the medical decision making process. - Radiology CXR Xray Interpretation: Positive (See Comments) - IMPRESSION: THERE HAS BEEN INTERVAL INVOLVEMENT OF LEFT UPPER LUNG CONSOLIDATION. RECOMMEND FOLLOW-UP UNTIL RESOLUTION TO EXCLUDE UNDERLYING PULMONARY PARENCHYMAL PATHOLOGY Radiology Interpretation Completed By: Radiologist - EKG 12:13 EKG Interpretation: sinus tachycardia at 107 Re-Evaluation - Re-Evaluation First Eval Re-Evaluation Time: 13:10 - discussed imaging and lab results Change: Unchanged Disposition - Course Assessment/Plan: 86 year old male present with worsening SOB s/p discharge from the hospital. Patient's significant other states that he was recently discharged and was at his worst 2 days ago. He also reports cough with productive castro/brown sputum, lower extremity edema, weakness, and chest pain. He denies any fevers. Patient was admitted to hospital after a 10 day stay for PNA and COPD. He was seen at Dr. Issa's office today and referred to the ED. PMHx is significant for COPD. WBC 17.0, Neuts % 88.6, chloride 99, glucose 110 , BUN/Creatinine ration 21.8, CRP 479.56, ALBUMIN 2.6, GLOBIN 4.3, LIPASE <10, troponin .42, CK-MB 8.7, BNP 126. Coagulation studies, lactic acid, LFTs, and TSH are WNL. EKG- sinus tachycardia at 107. CXR - IMPRESSION: THERE HAS BEEN INTERVAL INVOLVEMENT OF LEFT UPPER LUNG CONSOLIDATION. RECOMMEND FOLLOW-UP UNTIL RESOLUTION TO EXCLUDE UNDERLYING PULMONARY PARENCHYMAL PATHOLOGY. Hospitalist consulted - Dr. Ledezma (12:51) - agrees to admit. Constitutional Law Professor consulted - Dr. Carmelo Bedolla (13:17) -. DX: bilateral PNA, and sepsis - Differential Dx - Cardiopulmonary Differential Diagnoses - Cardiopulmonary: Exacerbation Of COPD, Pulmonary Embolism, Other - PNA - Diagnoses Provider Diagnoses: Bilateral pneumonia, Sepsis - Physician Notifications Discussed Care Of Patient With: Amanda Ledezma Time Discussed With Above Provider: 12:51 - AGREES TO ADMIT Discharge - Discharge Plan Condition: Stable Disposition: ADMITTED TO [facility] Referrals: David Issa MD [Primary Care Provider] - The documentation as recorded by the Lexi salazar Auryana accurately reflects the service I personally performed and the decisions made by me, Rohan Collado MD.
[2016-09-25] MEDS ORDERED: Spiriva Inhaler DEVICE* 1 EACH DEVICE ONE (16:00)
--- NOTE | 2016-09-25 20:33 | HP ---
CC: Dr. David Issa; Dr. Monreal * HISTORY AND PHYSICAL: DATE OF ADMISSION: 09/25/16 PRIMARY CARE PROVIDER: Dr. David Issa. ATTENDING PHYSICIAN: Dr. Amanda Hughes* (dictated by Patsy Hernandez NP). CHIEF COMPLAINT: Shortness of breath with intermittent chest pain. HISTORY OF PRESENT ILLNESS: Mr. Zavala is an 86-year-old male with past medical history significant for COPD, on home oxygen; BPH; depression; PMR who presents to the hospital with complaints of chest pain and shortness of breath. The patient reports that his symptoms have not improved since he was discharged from the hospital 10 days ago on September 15. At that time, the patient had been hospitalized from September 11 to September 15 for COPD exacerbation and possible pneumonia. The patient was discharged home on clarithromycin to finish a 5-day course. He had also been seen in consultation with Dr. Monreal during his stay. At that point, the patient had also been complaining of chest pain which seemed to be likely costochondritis from his vigorous coughing. During that stay, the patient also had a transthoracic echocardiogram on September 12 showing a septal wall hypertrophy, LV systolic function was at the lower limits of normal with an estimated EF of 50% to 55%. The patient also had a left ventricular septal wall motion abnormality due to the presence of a right bundle branch block possibly. During that time, the patient also underwent chest CTA on September 11 that was a suboptimal scan with the pulmonary arteries not well seen. There is no obvious pulmonary embolus noted although he had smaller vessels that were not well seen. The patient denies any fever or chills. He reports chest pain that is worse when getting up. He reports an occasional cough with castro brown sputum. His shortness of breath is exacerbated by exertion. The patient also reports some diaphoresis with activity. He is prescribed 2 L of oxygen at home, but has recently increased his oxygen to 3 L via nasal cannula. The patient reports some lower extremity edema that is new. He also reports generalized weakness. He reports that both of his sides hurt when he coughs. The patient also reports new urinary incontinence since his hospitalization. He reports he follows with Dr. Calderon for BPH. The patient had presented to see his primary care provider today at which time due to his complaints of shortness of breath and chest pain, he was referred to the emergency room for further evaluation of his symptoms. While in the emergency room, the patient received DuoNeb in addition to aspirin , cefepime, and Cipro. The patient also received bolus dose of IV Solu-Medrol. The patient was noted to be tachycardic with heart rates in the 110s. His oxygen level was in the mid to low 90s on 5 L via nasal cannula. The patient had labs that were significant for white blood cell count of 17.0. The patient was also noted to have a troponin of 0.42, a CRP of 479.56. Based on the patient's presentation, the hospitalists were asked to evaluate the patient for admission. PAST MEDICAL HISTORY: 1. Chronic obstructive pulmonary disease, on home O2. 2. BPH. 3. Depression. 4. Insomnia. 5. PMR. 6. Hyperlipidemia. PAST SURGICAL HISTORY: 1. Status post left total hip replacement. 2. Status post hernia repair. 3. Status post left orchiectomy. HOME MEDICATIONS: 1. Mucinex 600 mg oral twice daily as needed for cough. 2. Robitussin AC 100/10 mg 5 mL oral every 4 hours as needed for cough. 3. Fish oil 1000 mg oral daily. 4. Multivitamin 1 tablet oral daily. 5. Furosemide 20 mg oral every other day. 6. Dulcolax suppository 10 mg p.r. daily as needed for constipation. 7. Milk of magnesia 5 mg oral daily for constipation. 8. Ibuprofen 400 mg oral every 6 hours as needed for fever or pain. 9. Robitussin 12 Hour Cough 30 mg oral every 4 hours as needed for cough. 10. Vitamin C 500 mg oral daily. 11. Restoril 30 mg oral daily at bedtime as needed for sleep. 12. Atrovent 0.5 mg nebulizer 0.5 mg inhalation 3 times daily as needed for shortness of breath. 13. Breo Ellipta MDI 1 puff inhalation daily. 14. Finasteride 5 mg oral every morning. 15. Albuterol 2 puffs inhalation every 4 hours as needed for shortness of breath or wheeze. 16. Triamcinolone 0.5% cream apply topical daily as needed for itching. 17. Spiriva 1 capsule inhalation daily at bedtime. 18. Prednisone 30 mg oral daily. 19. Remeron 15 mg oral daily. ALLERGIES: Include PENICILLIN, SULFA, SERTRALINE, DOXYCYCLINE, ZETIA, and STATINS. FAMILY HISTORY: The patient reports a maternal grandmother with a history of coronary artery disease. He denies any family history of diabetes mellitus. The patient had a maternal aunt with a history of liver cancer. SOCIAL HISTORY: The patient reports quitting smoking a few years ago. Prior to that, he smoked a pack a day for approximately 60 years. The patient denies alcohol or recreational drug use. 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 His partner, Dave Hooker, will be his surrogate decision maker in the event that he is unable to make decisions for himself. REVIEW OF SYSTEMS: I performed a 14-point review of systems. All the pertinent positives and negatives are mentioned in the history of present illness. The remaining review of systems are negative. PHYSICAL EXAMINATION GENERAL APPEARANCE: The patient is alert, pleasant, appear to be in no acute distress. VITAL SIGNS: Temperature 97.9, heart rate 110, respiratory rate 22, O2 sat 93% on 5 L via nasal cannula, blood pressure 111/75. HEENT: Normocephalic, atraumatic. Pupils are equal and reactive to light. Extraocular movements are intact. RESPIRATORY: There is no accessory muscle use and the patient's lungs are clear but diminished. This is anterior auscultation. CARDIOVASCULAR: Regular rate and rhythm. S1, S2 present. There are murmurs, rubs, or gallops heard. ABDOMEN: Soft, nontender, nondistended. There are bowel sounds positive x4. EXTREMITIES: There is trace to 1+ bilateral lower extremity edema. DP and PT pulses are 1+ and symmetric. MUSCULOSKELETAL: There is no clubbing or cyanosis noted. The patient exhibits good strength in all extremities. The patient has tenderness to palpation to the left chest with reproduction of his pain. NEUROLOGICAL: The patient is alert and oriented x4. Cranial nerves II through XII are grossly intact. PSYCHOLOGICAL: The patient is calm and cooperative. SKIN: There are no rashes or abnormalities seen. DIAGNOSTIC STUDIES/LABORATORY DATA: Sodium 135, potassium 4.2, chloride 99, CO2 26, BUN 22, creatinine 1.01, glucose 110. CK-MB 87. Troponin 0.42. CRP 479.56, BNP 126. White blood cell count 17.0, hemoglobin 11.8, hematocrit 36, and platelet count 297. EKG shows sinus tachycardia with a rate of 107. There are no acute signs of ischemia. This EKG is similar to previous EKG from 09/11/16. Chest x-ray from today, radiologist's impression: There has been left upper lung consolidation. Recommend followup until resolution to exclude underlying pulmonary preventional pathology. IMPRESSION: Mr. Zavala is an 86-year-old male with past medical history significant for chronic obstructive pulmonary disease, on home oxygen; benign prostatic hyperplasia; depression; and polymyalgia rheumatica who presents to the emergency room with complaints of chest pain and shortness of breath. He will be admitted as an observation for pneumonia and elevated troponins. ASSESSMENT/PLAN: 1. Pneumonia: I suspect this is causing the patient's shortness of breath. We will place him on Levaquin. Blood cultures have already been drawn. We will get a sputum culture in addition to urine legionella antigen and S. pneumoniae antigens. On admission, the patient is meeting sepsis criteria with systemic inflammatory response syndrome criteria of tachycardia, tachypnea, and leukocytosis. The patient has a Q-SOFA score of 1 for a respiratory rate greater than 22. HIs lactic acid is 1.4. We will place the patient on Levaquin as this could cover the possibility of hospital- acquired pneumonia as this is a new infiltrate from the infiltrate he previously had on his admission 10 days ago. 2. Elevated troponin: The patient is complaining of left-sided chest pain. This is reproducible with palpation. I suspect this is musculoskeletal and could represent costochondritis with his coughing. On the patient's last admission, he had a positive D-dimer and a negative CTA of his chest. I do not feel that a V/Q scan would be beneficial in this case. I suspect the patient's elevated troponin is likely demand ischemia related. If the patient's troponin continues to trend up, we will consider getting a CTA of his chest for further evaluation of a possible pulmonary embolus. If the patient's troponins trend up , we will also ask Cardiology to consult on the patient. At this time, the patient's EKG shows no signs of acute ischemia. The patient will be monitored on telemetry. I would wait to pursue a stress test until he recovers from the pneumonia. 3. Chronic obstructive pulmonary disease: I do not feel that the patient is in chronic obstructive pulmonary disease exacerbation at this time. For now, we will continue him on his home dose of prednisone 30 mg daily. He did receive a bolus of Solu-Medrol in the emergency room. We will also continue the patient on his home inhalers. 4. Benign prostatic hyperplasia: We will continue the patient on his home finasteride. 5. Insomnia: We will continue the patient on his home as needed Restoril. 6. Depression: We will continue the patient on his home Remeron. 7. Polymyalgia rheumatica: We will continue the patient on his home steroids. 8. Fluids, electrolytes, and nutrition: The patient will be on a heart healthy diet. 9. Code status: Do not resuscitate. The patient is willing to have a trial intubation. A new MOLST has been filled out and is on his chart from today. 10. DVT prophylaxis: The patient is at highest risk and will have subcu heparin in addition to SCDs. 11. Disposition: Observation for pneumonia and elevated troponin. TIME SPENT: The time spent for this admission was 70 minutes, greater than half of that was spent with the patient and partner discussing medications, past medical history, and the events leading up to his arrival today and performing the physical examination. The case has been reviewed with the attending, Dr. Hughes, who agrees with the plan of care. Reviewed by CLAUS CALHOUN 09/28/16 [id number]/[facility] #: [id number] YFN
[2016-09-25] MEDS: Tiotropium CAP.INH* CAP.INH/18 MCG INH SCH (20:47)
[2016-09-25] MEDS: Albuterol 2.5 MG/3 ML NEB.SOL* (0.083%) INH SCH (20:47)
[2016-09-25] MEDS: Temazepam CAP* 15 MG PO PRN (21:18)
[2016-09-25] MEDS: guaiFENesin ER TAB 600 MG PO SCH (21:18)
[2016-09-25] MEDS: Mirtazapine TAB* 15 MG PO SCH (21:18)
[2016-09-25] MEDS: Heparin VIAL(*) 5000 UNITS/ML VIAL (FIVE THOUSAND) SUBCUT SCH (21:18)
[2016-09-26] MEDS: Albuterol 2.5 MG/3 ML NEB.SOL* (0.083%) INH SCH ×4 (01:07→20:09)
[2016-09-26 02:14] LABS: Urine Bilirubin Negative (Negative); Urine Glucose Negative (Negative); Urine Nitrite Negative (Negative)
[2016-09-26] MEDS: Levofloxacin 750 MG IVPREMIX(* 750 MG/150 ML BAG IVPB SCH (02:55)
[2016-09-26] MEDS: Heparin VIAL(*) 5000 UNITS/ML VIAL (FIVE THOUSAND) SUBCUT SCH ×3 (05:48→21:11)
[2016-09-26 06:18] LABS: Hematocrit 33 % (42-52); Hemoglobin 10.8 g/dl (14.0-18.0); Mean Corpuscular HGB Conc 33 g/dl (31-36); Mean Corpuscular Hemoglobin 32 pg (27-31); Mean Corpuscular Volume 96 fL (80-94); Mean Platelet Volume 8 um3 (7.4-10.4); Red Blood Count 3.42 10^6/ul (4.0-5.4); Red Cell Distribution Width 15 % (10.5-15); White Blood Count 14.3 10^3/ul (3.5-10.8)
[2016-09-26 06:22] LABS: Add Diff/Slide Review? Slide Review Added; Comments Flag Yes
[2016-09-26 06:41] LABS: BUN/Creatinine Ratio 20.5 (8-20); EGFR African American 121.7 (>60); EGFR Non-African American 94.6 (>60); Potassium 4.1 mmol/L (3.5-5.0)
[2016-09-26 06:55] LABS: Immature Granulocytes 8 % (0-9); Metamyelocytes % 1 % (0-2); Neutrophil % 84 % (38-83); Reactive Lymph % 1 % (0-6)
[2016-09-26 06:56] LABS: RBC Morphology Normal (Normal)
--- NOTE | 2016-09-26 07:51 | RAD ---
HISTORY: Shortness of breath COMPARISONS: September 25, 2016 VIEWS:1: Single frontal portable view of the chest at 6:30 AM FINDINGS: LINES AND TUBES: None. CARDIOMEDIASTINAL SILHOUETTE: The cardiomediastinal silhouette is normal for portable technique. PLEURA: The costophrenic angles are sharp. No pleural abnormalities are noted. LUNG PARENCHYMA: There is persistent patchy and confluent alveolar opacification of the left upper lung. ABDOMEN: The upper abdomen is clear. There is no subphrenic gas. BONES AND SOFT TISSUES: No bone or soft tissue abnormalities are noted. IMPRESSION: PERSISTENT LEFT UPPER LUNG CONSOLIDATION. RECOMMEND CONTINUED FOLLOW-UP UNTIL RESOLUTION TO EXCLUDE UNDERLYING PULMONARY PARENCHYMAL PATHOLOGY.
[2016-09-26] MEDS: Fluticasone/Vilanterol MDI(NF) 100/25 MDI INH SCH (08:20)
[2016-09-26] MEDS: Ascorbic Acid TAB* 500 MG PO SCH (08:51)
[2016-09-26] MEDS: Multivitamins/Minerals TAB PO SCH (08:51)
[2016-09-26] MEDS: guaiFENesin ER TAB 600 MG PO SCH ×2 (08:51→21:11)
[2016-09-26] MEDS: predniSONE TAB* 10 MG PO SCH (08:51)
[2016-09-26] MEDS: Finasteride TAB* 5 MG PO SCH (08:51)
[2016-09-26] MEDS: Magnesium Hydroxide LIQ* 30 ML UDC PO PRN (10:53)
--- NOTE | 2016-09-26 10:57 | PN ---
Subjective Date of Service: 09/26/16 Interval History: Mr. Carrillo is an 86 yo male patient who was [place] [facility] [place] being treated for suspected LLL atelectasis/concern for pneumonia and COPD exacerbation. He was discharged to home on clarithromycin x 5 additional days. Per family member, DavePierre did well for approximately 1 week. Then on Saturday 09/23, he reports a very notable change. He describes increased lethargy and "staring," which he notes happens when Pierre is getting sick. At that time, he states he wanted to bring the patient in to the hospital for evaluation, but the patient refused. He apparently stayed in bed all day Sunday but then looked a little better on Sunday and was able to shower. Dave took the patient to Dr. Issa, who sent the patient to the hospital. Patient is currently sitting out of bed to chair. He denies fever/chills, CP, SOB. He is demanding coffee and milk of magnesia. Dave reports that patient's PO intake has been less recently and the patient has few things that he will eat. Both Dave and the patient feel he is doing a little better this morning. No other acute concerns. Family History: Unchanged from Admission Social History: Unchanged from Admission Past Medical History: Unchanged from Admission Objective Active Medications: Albuterol (Ventolin Hfa Inhaler*) 2 puff INH Q4H PRN PRN Reason: SOB/WHEEZING Albuterol (Ventolin 2.5 Mg/3 Ml Neb.Marie*) 2.5 mg INH [id number] [facility] Last Admin: 09/26/16 08:00 Dose: 2.5 mg Ascorbic Acid (Vitamin C Tab*) 500 mg PO DAILY [facility] Last Admin: 09/26/16 08:51 Dose: 500 mg Bisacodyl (Dulcolax Supp*) 10 mg [place] DAILY PRN PRN Reason: CONSTIPATION Finasteride (Proscar Tab*) 5 mg PO QAM [facility] Last Admin: 09/26/16 08:51 Dose: 5 mg Fluticasone/Vilanterol (Breo Ellipta Mdi 100/25(Nf)) 1 puff INH DAILY [facility] Last Admin: 09/26/16 08:20 Dose: Not Given Guaifenesin (Mucinex*) 600 mg PO BID [facility] Last Admin: 09/26/16 08:51 Dose: 600 mg Heparin Sodium (Porcine) (Heparin Vial(*)) 5,000 units SUBCUT Q8HR [facility] Last Admin: 09/26/16 05:48 Dose: 5,000 units Levofloxacin/Dextrose (Levaquin 750 Mg Ivpremix(*)) 750 mg in 150 mls @ 100 mls /hr IVPB Q24H [facility] Last Admin: 09/26/16 02:55 Dose: 100 mls/hr Ibuprofen (Motrin Tab*) 400 mg PO Q6HR PRN PRN Reason: pain Magnesium Hydroxide (Milk Of Magnesia Liq*) 30 ml PO DAILY PRN PRN Reason: CONSTIPATION Last Admin: 09/26/16 10:53 Dose: 30 ml Mirtazapine (Remeron Tab*) 15 mg PO BEDTIME [facility] Last Admin: 09/25/16 21:18 Dose: 15 mg Multivitamins/Minerals (Theragran/Minerals Tab*) 1 tab PO DAILY [facility] Last Admin: 09/26/16 08:51 Dose: 1 tab Prednisone (Deltasone Tab*) 30 mg PO DAILY [facility] Last Admin: 09/26/16 08:51 Dose: 30 mg Temazepam (Restoril Cap*) 30 mg PO BEDTIME PRN PRN Reason: SLEEP Last Admin: 09/25/16 21:18 Dose: 30 mg Tiotropium [place] (Spiriva Cap.Inh*) 1 cap INH BEDTIME [facility] Last Admin: 09/25/16 20:47 Dose: 1 cap Vital Signs 09/25/16 09/25/16 09/25/16 14:41 15:45 19:30 Temperature 97.2 F 98.3 F Pulse Rate 112 102 Respiratory 24 16 Rate Blood Pressure 124/71 117/65 (mmHg) O2 Sat by Pulse 97 90 96 Oximetry 09/25/16 09/26/16 09/26/16 20:49 00:38 03:22 Temperature 97.9 F 97.9 F Pulse Rate 97 93 94 Respiratory 20 20 20 Rate Blood Pressure 119/68 124/79 (mmHg) O2 Sat by Pulse 91 97 98 Oximetry 09/26/16 09/26/16 07:16 08:03 Temperature Pulse Rate 94 91 Respiratory 16 18 Rate Blood Pressure 117/68 (mmHg) O2 Sat by Pulse 99 98 Oximetry Oxygen Devices in Use Now: Simple Face Mask Appearance: Elderly male, OOB to chair, NAD Eyes: No Scleral Icterus Ears/Nose/Mouth/Throat: Mucous Membranes Moist Neck: NL Appearance and Movements; NL JVP Respiratory: Symmetrical Chest Expansion and Respiratory Effort, - - scattered rhonchi, exp wheezing Cardiovascular: NL Sounds; No Murmurs; No JVD, RRR, No Edema Abdominal: NL Sounds; No Tenderness; No Distention Extremities: No Edema, No Clubbing, Cyanosis Skin: No Rash or Ulcers Neurological: Alert and Oriented x 3 Lines/Tubes/Other Access: Clean, Dry and Intact Peripheral IV Nutrition: Taking PO's Result Diagrams: 09/26/16 05:58 09/26/16 05:58 Microbiology and Other Data: Microbiology 09/25/16 18:15 Gram Stain - Final Sputum Expectorated 09/25/16 18:15 Legionella Urinary Antigen - Final Urine Negative Legionella Streptococcus pneumoniae Ag Screen - Final Positive S. Pneumo Antigen Assess/Plan/Problems-Billing Assessment: Mr. Carrillo is an 86 yo male patient with a history significant for COPD (on home O2), PMR, and BPH who was recently admitted and treated for COPD exacerbation and pneumonia and now returns with new MESERET lesion and elevated troponins. - Patient Problems (1) Sepsis Comment: Patient meets sepsis criteria on admission by SIRS criteria with tachypnea, leukocytosis, and tachycardia. Patient meets sepsis criteria on admission by SOFA criteria with a qSOFA score of 1 or tachypnea. Continue IV levofloxacin, ceftriaxone. (2) Pneumonia Code(s): J18.9 - PNEUMONIA, UNSPECIFIED ORGANISM Comment: Previous concern for LLL infiltrate, treated with levofloxacin and clarithromycin. Now with MESERET infiltrate, S. pneumo antigen positive Continue levofloxacin, add ceftriaxone per ID Appreciate pulm and ID consults (3) COPD (chronic obstructive pulmonary disease) Code(s): J44.9 - CHRONIC OBSTRUCTIVE PULMONARY DISEASE, UNSPECIFIED Comment: Continue current dose of prednisone and standing nebs. Continue Breo Ellipta and Spiriva. Pulmonology to consult. (4) Elevated troponin Code(s): R74.8 - ABNORMAL LEVELS OF OTHER SERUM ENZYMES Comment: No further c/o chest pain Suspect demand ischemia with acute PNA and COPD exacerbation Trop peak 0.46 No acute s/s of ischemia on patient's EKG Continue to monitor (5) Polymyalgia rheumatica Code(s): M35.3 - POLYMYALGIA RHEUMATICA Comment: The patient's prednisone dose was increased recently by his PCP for concerns of worsened PMR (he was having leg pain). Continue current dose of prednisone. (6) BPH (benign prostatic hyperplasia) Code(s): N40.0 - BENIGN PROSTATIC HYPERPLASIA WITHOUT LOWER URINRY TRACT SYMP Comment: Continue home finasteride. (7) Insomnia Code(s): G47.00 - INSOMNIA, UNSPECIFIED Comment: Continue prn temazepam (8) Depression Code(s): F32.9 - MAJOR DEPRESSIVE DISORDER, SINGLE EPISODE, UNSPECIFIED Comment: Stable Continue mirtazapine. (9) DVT prophylaxis Comment: SQ heparin (10) DNR (do not resuscitate) Comment: MOLST completed on admission, 09/25/16 Status and Disposition: OBV to inpatient. Pulm and ID consults pending. Continue IV abx treatment.
[2016-09-26] MEDS ORDERED: Polyethylene Glycol 3350* 17 GM PACKET PO PRN (11:01)
[2016-09-26] MEDS: cefTRIAXone VIAL(*) 1,000 MG in NS 0.9% 50 ML* 50 ML IVPB SCH (14:10)
[2016-09-26] MEDS: Tiotropium CAP.INH* CAP.INH/18 MCG INH SCH (20:09)
[2016-09-26] MEDS: Temazepam CAP* 15 MG PO PRN (21:11)
[2016-09-26] MEDS: Mirtazapine TAB* 15 MG PO SCH (21:11)
[2016-09-27] MEDS: Albuterol 2.5 MG/3 ML NEB.SOL* (0.083%) INH SCH ×4 (01:14→19:35)
[2016-09-27] MEDS: Ibuprofen TAB* 400 MG PO PRN ×2 (01:37→16:26)
[2016-09-27] MEDS: Levofloxacin 750 MG IVPREMIX(* 750 MG/150 ML BAG IVPB SCH (01:38)
--- NOTE | 2016-09-27 01:42 | CONS ---
PULMONARY CONSULTATION REPORT: DATE OF CONSULTATION: 09/26/16 CONSULTATION REQUESTED BY: Francia Rodriguez NP HISTORY OF PRESENT ILLNESS: The patient is an 86-year-old male known to me from outpatient evaluation and also recent inpatient evaluation. The patient recently was admitted and treated for pneumonia. The patient was discharged from the hospital on 09/15/16. The patient was treated and was noted to be tachypneic and was sent into the emergency room for further evaluation. The patient also complained of chest pain to his primary care physician. Further evaluation in the emergency room revealed tachycardia with heart rate in 110s, oxygen levels in low 90s on 5 L nasal cannula at his baseline. He was also noted to have elevated white count, elevated troponin and CRP. The patient received fluid boluses, Solu-Medrol, aspirin, cefepime, and Cipro in the emergency room. The patient was initiated on Levaquin for treatment of pneumonia. The patient was seen and examined by me earlier this morning. The patient reported slight improvement in his breathing. He is concerned about his recurrent shortness of breath. The patient reported that he never felt better since discharge. He is, however, hoping to get over the hospital soon. The patient also reports constipation and has requested milk of magnesia earlier, which usually helps him. He denied fevers or chills at home. He reports occasional cough with castro brown sputum. The patient has been needing O2 with 3 L recently. He also reported lower extremity edema that is new. He reports generalized weakness and not feeling well overall. The patient also reports chest discomfort with coughing. He also has been having urinary incontinence since recent hospitalization and follows up with Dr. Calderon for BPH. He has been sitting up and eating his lunch at the time of exam. He reported decreased appetite recently. I have personally reviewed the chest x-ray performed on admission, which showed evidence of airspace opacities in the left upper lobe consistent with pneumonia. His recent chest x-ray and CT scan during earlier hospitalization did not reveal any opacities on the left lung. Urinary Strep pneumoniae antigen has been positive. PAST MEDICAL HISTORY: 1. COPD, on home O2. 2. BPH. 3. Depression. 4. Insomnia. 5. Hyperlipidemia. PAST SURGICAL HISTORY: 1. Status post left total hip replacement. 2. Status post hernia repair. 3. Status post left orchidectomy. MEDICATIONS: At home: 1. Mucinex. 2. Robitussin. 3. Fish oil. 4. Multivitamin. 5. Furosemide 20 mg every other day. 6. Dulcolax. 7. Milk of magnesia. 8. Ibuprofen. 9. Vitamin C. 10. Restoril. 11. Atrovent. 12. Breo Ellipta. 13. Finasteride. 14. Albuterol. 15. Triamcinolone. 16. Spiriva. 17. Prednisolone. 18. Tramadol. ALLERGIES: PENICILLIN, SULFA, SERTRALINE, DOXYCYCLINE, ZETIA, and STATINS. FAMILY HISTORY: Paternal grandmother with history of coronary artery disease. SOCIAL HISTORY: Quit smoking few years ago. He smoked a pack per day for 60 years. No alcohol or recreational drug abuse. REVIEW OF SYSTEMS: All 14 systems were reviewed and as per HPI. PHYSICAL EXAM: The patient is sitting up in bed, in no apparent distress. Vital Signs: Temperature 97.8, heart rate 97 beats per minute, respiratory rate 20 per minute, O2 sat 98% on 4 L, blood pressure 136/70. HEENT: Pupils equal, reactive to light. Mucous membranes moist. Respiratory: Poor air entry bilaterally, no wheezes on auscultation. Cardiovascular: S1, S2 present. Tachycardia present. Abdomen: Soft, nontender, nondistended. Bowel sounds present. Extremities: 1+ edema bilaterally. Musculoskeletal: Normal range of motion. Neurologic: No focal deficits. Skin: No rash or bruits. DIAGNOSTIC STUDIES/LAB DATA: Testing reveals WBC count elevated at 14.3, hemoglobin 10.8, hematocrit 33, platelet count 252. INR within normal limits. Sodium 136, potassium 4.1, chloride 106, bicarb 25, BUN 16, creatinine 0.7, troponins elevated at 0.43, CRP at 479 and BNP at 126. UA is negative. Chest x-ray as described above in HPI. IMPRESSION AND RECOMMENDATIONS: 86-year-old male with with history of severe chronic obstructive pulmonary disease, history of recurrent bronchitis and recent admission for pneumonia and chronic obstructive pulmonary disease exacerbation admitted with worsening shortness of breath, tachycardia. The patient with possible pneumonia on left lung, Strep pneumo antigen positive. He did not have opacities in the left lower lobe during recent hospitalization, looks like he might be having new pneumonia, less likely to be malignancy. The patient is currently on Levaquin. Strep pneumoniae can cause severe illness in elderly. He needs to be monitored closely. Troponins are elevated, which might be secondary to stress induced ischemia. He is on medical management currently for coronary artery disease. His BNP is also elevated. Recommend continue with diuretics. Continue with O2 supplementation. Given concern for hospital acquired pneumonia, I would recommend broadening of antibiotics; however, I would leave that to Infectious Disease consultation. Thank you for allowing me to participate in the care of your patient. Will follow up with you. [id number]/[facility] #: [id number] YFN
[2016-09-27 04:57] LABS: Hematocrit 33 % (42-52); Hemoglobin 10.3 g/dl (14.0-18.0); Mean Corpuscular HGB Conc 31 g/dl (31-36); Mean Corpuscular Hemoglobin 31 pg (27-31); Mean Corpuscular Volume 99 fL (80-94); Mean Platelet Volume 8 um3 (7.4-10.4); Red Blood Count 3.31 10^6/ul (4.0-5.4); Red Cell Distribution Width 16 % (10.5-15); White Blood Count 12.8 10^3/ul (3.5-10.8)
[2016-09-27] MEDS: Heparin VIAL(*) 5000 UNITS/ML VIAL (FIVE THOUSAND) SUBCUT SCH ×3 (06:04→21:31)
[2016-09-27] MEDS: Fluticasone/Vilanterol MDI(NF) 100/25 MDI INH SCH (07:53)
[2016-09-27] MEDS: Finasteride TAB* 5 MG PO SCH (08:46)
[2016-09-27] MEDS: guaiFENesin ER TAB 600 MG PO SCH ×2 (08:47→19:39)
[2016-09-27] MEDS: Ascorbic Acid TAB* 500 MG PO SCH (08:47)
[2016-09-27] MEDS: predniSONE TAB* 10 MG PO SCH (08:47)
[2016-09-27] MEDS: Multivitamins/Minerals TAB PO SCH (08:47)
--- NOTE | 2016-09-27 09:28 | PN ---
Subjective Date of Service: 09/27/16 Interval History: Patient seen and examined at bedside. He reports having a "terrible morning." He states he recently was really short of breath and had all the nursing staff. The patient is having difficulty speaking in full sentences due to dyspnea. Of note, the patient repeatedly removes his face mask "for a break" and places it on the top of head, resulting in increased SOB. Patient advised to refrain from this and discussed having humidity added to his O2 for more comfort. He denies fever/chills, CP, nausea/vomiting. He feels like he felt better yesterday but feels worse since they changed his room. Family History: Unchanged from Admission Social History: Unchanged from Admission Past Medical History: Unchanged from Admission Objective Active Medications: Albuterol (Ventolin Hfa Inhaler*) 2 puff INH Q4H PRN PRN Reason: SOB/WHEEZING Last Admin: 09/27/16 09:01 Dose: 2 inh Albuterol (Ventolin 2.5 Mg/3 Ml Neb.Marie*) 2.5 mg INH [id number] [facility] Last Admin: 09/27/16 07:53 Dose: 2.5 mg Ascorbic Acid (Vitamin C Tab*) 500 mg PO DAILY [facility] Last Admin: 09/27/16 08:47 Dose: 500 mg Bisacodyl (Dulcolax Supp*) 10 mg [place] DAILY PRN PRN Reason: CONSTIPATION Finasteride (Proscar Tab*) 5 mg PO QAM [facility] Last Admin: 09/27/16 08:46 Dose: 5 mg Fluticasone/Vilanterol (Breo Ellipta Mdi 100/25(Nf)) 1 puff INH DAILY [facility] Last Admin: 09/27/16 07:53 Dose: Not Given Guaifenesin (Mucinex*) 600 mg PO BID [facility] Last Admin: 09/27/16 08:47 Dose: 600 mg Heparin Sodium (Porcine) (Heparin Vial(*)) 5,000 units SUBCUT Q8HR [facility] Last Admin: 09/27/16 06:04 Dose: 5,000 units Levofloxacin/Dextrose (Levaquin 750 Mg Ivpremix(*)) 750 mg in 150 mls @ 100 mls /hr IVPB Q24H [facility] Last Admin: 09/27/16 01:38 Dose: 100 mls/hr Ceftriaxone Sodium 1,000 mg/ (Sodium Chloride) 50 mls @ 200 mls/hr IVPB Q24H [facility] Last Admin: 09/26/16 14:10 Dose: 200 mls/hr Ibuprofen (Motrin Tab*) 400 mg PO Q6HR PRN PRN Reason: pain Last Admin: 09/27/16 01:37 Dose: 400 mg Magnesium Hydroxide (Milk Of Magnesia Liq*) 30 ml PO DAILY PRN PRN Reason: CONSTIPATION Last Admin: 09/26/16 10:53 Dose: 30 ml Mirtazapine (Remeron Tab*) 15 mg PO BEDTIME [facility] Last Admin: 09/26/16 21:11 Dose: 15 mg Multivitamins/Minerals (Theragran/Minerals Tab*) 1 tab PO DAILY [facility] Last Admin: 09/27/16 08:47 Dose: 1 tab Polyethylene Glycol/Electrolytes (Miralax*) 17 gm PO DAILY PRN PRN Reason: CONSTIPATION Prednisone (Deltasone Tab*) 30 mg PO DAILY [facility] Last Admin: 09/27/16 08:47 Dose: 30 mg Temazepam (Restoril Cap*) 30 mg PO BEDTIME PRN PRN Reason: SLEEP Last Admin: 09/26/16 21:11 Dose: 30 mg Tiotropium [place] (Spiriva Cap.Inh*) 1 cap INH BEDTIME [facility] Last Admin: 09/26/16 20:09 Dose: 1 cap Vital Signs 09/26/16 09/26/16 09/26/16 11:10 14:13 15:34 Temperature 97.8 F 97.4 F Pulse Rate 99 97 97 Respiratory 16 18 20 Rate Blood Pressure 126/70 136/70 (mmHg) O2 Sat by Pulse 91 93 98 Oximetry 09/26/16 09/26/16 09/26/16 17:18 20:11 20:33 Temperature 96.9 F Pulse Rate 88 92 Respiratory 20 20 Rate Blood Pressure 118/66 (mmHg) O2 Sat by Pulse 97 97 95 Oximetry 09/26/16 09/26/16 09/27/16 21:54 23:32 01:14 Temperature 97.6 F Pulse Rate 97 97 Respiratory 20 20 Rate Blood Pressure 126/71 (mmHg) O2 Sat by Pulse 97 95 95 Oximetry 09/27/16 09/27/16 09/27/16 03:54 07:20 07:57 Temperature 99.5 F 98.4 F Pulse Rate 99 98 96 Respiratory 20 26 Rate Blood Pressure 113/67 123/65 (mmHg) O2 Sat by Pulse 92 93 92 Oximetry 09/27/16 09:12 Temperature Pulse Rate 121 Respiratory 30 Rate Blood Pressure 135/71 (mmHg) O2 Sat by Pulse 100 Oximetry Oxygen Devices in Use Now: Simple Face Mask Appearance: Elderly male, lying in bed, tachypneic, difficulty speaking full sentences Eyes: No Scleral Icterus Ears/Nose/Mouth/Throat: Clear Oropharnyx Neck: NL Appearance and Movements; NL JVP Respiratory: Symmetrical Chest Expansion and Respiratory Effort, - - coarse breath sounds throughout with basilar crackles and scattered rhonchi, exp wheezing Cardiovascular: NL Sounds; No Murmurs; No JVD, RRR - tachycardic Abdominal: NL Sounds; No Tenderness; No Distention Extremities: No Edema, No Clubbing, Cyanosis Neurological: Alert and Oriented x 3 Lines/Tubes/Other Access: Clean, Dry and Intact Peripheral IV Nutrition: Taking PO's Result Diagrams: 09/27/16 04:30 09/26/16 05:58 Microbiology and Other Data: Microbiology 09/25/16 18:15 Gram Stain - Final Sputum Expectorated 09/25/16 18:15 Legionella Urinary Antigen - Final Urine Negative Legionella Streptococcus pneumoniae Ag Screen - Final Positive S. Pneumo Antigen Assess/Plan/Problems-Billing Assessment: Mr. Carrillo is an 86 yo male patient with a history significant for COPD (on home O2), PMR, and BPH who was recently admitted and treated for COPD exacerbation and pneumonia and now returns with new MESERET lesion and elevated troponins. - Patient Problems (1) Sepsis Comment: Patient meets sepsis criteria on admission by SIRS criteria with tachypnea, leukocytosis, and tachycardia. Patient meets sepsis criteria on admission by SOFA criteria with a qSOFA score of 1 or tachypnea. Continue IV levofloxacin, ceftriaxone. (2) Pneumonia Code(s): J18.9 - PNEUMONIA, UNSPECIFIED ORGANISM Comment: Previous concern for pneumonia, treated with levofloxacin and clarithromycin. Now with MESERET infiltrate, S. pneumo antigen positive Continue levofloxacin, add ceftriaxone per ID Appreciate pulm and ID consults (3) COPD (chronic obstructive pulmonary disease) Code(s): J44.9 - CHRONIC OBSTRUCTIVE PULMONARY DISEASE, UNSPECIFIED Comment: Continue current dose of prednisone and standing nebs. Continue Breo Ellipta and Spiriva. Pulmonology to consult. (4) Elevated troponin Code(s): R74.8 - ABNORMAL LEVELS OF OTHER SERUM ENZYMES Comment: No further c/o chest pain Suspect demand ischemia with acute PNA and COPD exacerbation Trop peak 0.46 No acute s/s of ischemia on patient's EKG Continue to monitor (5) Polymyalgia rheumatica Code(s): M35.3 - POLYMYALGIA RHEUMATICA Comment: The patient's prednisone dose was increased recently by his PCP for concerns of worsened PMR (he was having leg pain). Continue current dose of prednisone. (6) BPH (benign prostatic hyperplasia) Code(s): N40.0 - BENIGN PROSTATIC HYPERPLASIA WITHOUT LOWER URINRY TRACT SYMP Comment: Continue home finasteride. (7) Insomnia Code(s): G47.00 - INSOMNIA, UNSPECIFIED Comment: Continue prn temazepam (8) Depression Code(s): F32.9 - MAJOR DEPRESSIVE DISORDER, SINGLE EPISODE, UNSPECIFIED Comment: Stable Continue mirtazapine. (9) DVT prophylaxis Comment: SQ heparin (10) DNR (do not resuscitate) Comment: MOLST completed on admission, 09/25/16 Status and Disposition: Inpatient. Palliative care consult. Continue IV antibiotic treatment.
[2016-09-27] MEDS ORDERED: Furosemide IV* 10 MG/ML 2 ML VIAL (20 MG) IV SLOW PU ONE (09:57)
[2016-09-27] MEDS ORDERED: Docusate CAP* 100 MG PO PRN (11:10)
[2016-09-27] MEDS ORDERED: Senna TAB PO PRN (11:10)
[2016-09-27] MEDS: Magnesium Hydroxide LIQ* 30 ML UDC PO PRN (14:12)
[2016-09-27] MEDS: cefTRIAXone VIAL(*) 1,000 MG in NS 0.9% 50 ML* 50 ML IVPB SCH (14:12)
[2016-09-27] MEDS ORDERED: Morphine INJ* 2 MG/ML 1 ML SYRINGE IV ONE (16:55)
[2016-09-27] MEDS ORDERED: Ketorolac INJ* 30 MG/ML 1 ML VIAL IV PUSH ONE (18:18)
--- NOTE | 2016-09-27 18:20 | PN ---
Hospitalist Progress Note Patient with complaint of sudden onset of chest pain. During initial exam, patient reported pain in upper mid sternum that was non reproducible and felt SOB. EKG similar to previous with some noted T wave flattening in V2 but otherwise unchanged. Pt given morphine with little effect. Patient then stated his pain was lower and pain was reproducible with palpation - suspect costochondritis secondary to persistent cough, as patient states he started having the pain after coughing. Continue to monitor. Give dose of toradol now. Continue prn morphine.
--- NOTE | 2016-09-27 19:13 | CONS ---
CC: David Issa MD; Patsy Ac NP * PALLIATIVE CARE CONSULTATION: DATE OF CONSULT: 09/27/16 PRIMARY CARE PHYSICIAN: David Issa MD REFERRING PROVIDER: Patsy Ac NP HOSPITAL COURSE: This is an 86-year-old male with severe COPD, on continuous oxygen, who presented to the emergency room on 09/25/16 with shortness of breath and chest pain. The patient was recently admitted earlier this month for similar presentation with COPD exacerbation and pneumonia. The patient's partner, Dave Mehta, is at the bedside as well. The patient states that this past month he has done significantly worse. He did feel better at his discharge last time, but has had dyspnea on exertion, unable to walk more than 5 feet without getting short of breath and has been more deconditioned with a decrease in appetite this month. He has been on continuous oxygen for the past 3 years and is followed by Dr. Monreal. He states last evening he was feeling better and today he feels worse, more short of breath, pleuritic chest pain with a productive cough. He states he aches all over and has constipation. On my encounter, the patient went up to stand to use the urinal and had significant difficulty rolling to get out of bed and significant amount of shortness of breath on standing. We spoke about his MOLST form and he agrees to being a DNR. Regarding intubation, he still is interested in a trial intubation. We spoke about rehab and my concern of not being able to participate in rehab with his severe lung disease and that he is an eligible candidate for hospice for his end-stage lung disease. We spoke about resources provided to him with hospice versus a fci and the hospice residence. Unfortunately, his partner had a syncopal event during this discussion and had to go to the emergency room and the conversation was cut short due to this. The patient states he has several children, but are not local and does not have a strong support system other than his partner. Otherwise, remaining review of systems is negative. PAST MEDICAL HISTORY: 1. Severe COPD, on 2 L of continuous oxygen. 2. Recent admission for COPD exacerbation and pneumonia in August 2016. 3. BPH. 4. Depression. 5. Insomnia. 6. PMR. 7. Hyperlipidemia. MEDICATIONS: 1. Albuterol 2.5 mg q.6 hours as needed. 2. Albuterol inhaler 2 puffs every 4 hours as needed. 3. Ascorbic acid 500 mg p.o. daily. 4. Bisacodyl suppository 10 mg rectally as needed. 5. Finasteride 5 mg daily in the morning. 6. Fluticasone and vilanterol 1 puff inhaled daily. 7. Heparin 5000 units subcutaneous t.i.d. 8. Motrin 400 mg p.o. q.6 hours as needed. 9. Levaquin 750 mg every 24 hours. 10. Magnesium hydroxide 30 mL daily as needed. 11. Mirtazapine 15 mg at bedtime. 12. Multivitamin daily. 13. MiraLAX 17 g daily as needed. 14. Ceftriaxone 1 g q.24 hours. 15. Temazepam 30 mg at bedtime. 16. Tiotropium 1 cap inhaled at bedtime. 17. Guaifenesin ER 600 mg p.o. b.i.d. 18. Prednisone 30 mg p.o. daily. ALLERGIES: PENICILLIN, SERTRALINE, DOXYCYCLINE, ZETIA, and STATINS. SOCIAL HISTORY: As mentioned, the patient lives at home with his partner, Dave Mehta. He is his healthcare proxy. The patient states he quit smoking 3 years ago, at that time he was a [id number] history. No alcohol or illicit drug use. As mentioned, FLORIN quiles is a DNR with a trial intubation. The patient is a retired biomedical field service engineer. REVIEW OF SYSTEMS: A 14-point review of systems, all pertinent positives and negatives are mentioned in the HPI. Otherwise, remaining review of systems is negative. FAMILY HISTORY: Maternal grandmother with history of CAD, otherwise unremarkable. PHYSICAL EXAMINATION: Vital Signs: Temp 98.4, pulse rate 121, respiratory rate 30, oxygen saturation 100% on 6 L OxyMask, blood pressure 135/71. General : A frail elderly male in mild to moderate respiratory distress. Pupils are equal, reactive, anicteric. Head is normocephalic. Oropharynx: Mucous membranes moist. Cardiac: Tachycardic. Soft systolic murmur heard. Respiratory: Diminished breath sounds. Bilateral rhonchi. Abdomen: Soft, nontender, nondistended. Extremities: Trace pretibial edema. Neurologic: Alert and oriented x3. No focal neurologic deficits. Generalized symmetrical weakness. LABORATORY DATA: White count 12.8, hemoglobin 10.3, hematocrit 33, platelets 269,000. INR 1. Sodium 136, potassium 4.1, chloride 106, bicarb 25, BUN 16, creatinine 0.78. Troponin has remained steady at 0.4. RADIOGRAPHIC DATA: Chest x-ray; persistent left upper lung consolidation. Recommend followup until resolution to exclude underlying pulmonary parenchymal pathology. ASSESSMENT: This is an 86-year-old male with past medical history of severe chronic obstructive pulmonary disease, on continuous oxygen, who presents for the second time this month with a chronic obstructive pulmonary disease exacerbation and pneumonia, who has decline in his respiratory status. Based on his end-stage lung disease, he is eligible for hospice. We did discuss hospice at length; however, his partner who seems to be his soul support system had a syncopal episode and had to be brought to the emergency room. I would have followup with our social worker health services to discuss options for him. I am concerned about the care will not be enough for him at home and that he will need more care and support possibly at the residence or the fci with hospice if the patient is open to this. The patient also with significant dyspnea with getting up to use the urinal at the bedside and the patient is asking for a Negrete catheter, which we will place now. I will follow up with the primary care team regarding my recommendations. I thank you for this consultation. I will follow along with you. TIME SPENT: Greater than 100 minutes spent doing the consultation, more than half the time spent in direct patient contact. [id number]/[facility] #: [id number] YFN
[2016-09-27] MEDS: Tiotropium CAP.INH* CAP.INH/18 MCG INH SCH (19:36)
[2016-09-27] MEDS: Mirtazapine TAB* 15 MG PO SCH (19:39)
[2016-09-27] MEDS: Temazepam CAP* 15 MG PO PRN (21:31)
[2016-09-28] MEDS: Albuterol 2.5 MG/3 ML NEB.SOL* (0.083%) INH SCH ×4 (01:36→20:48)
[2016-09-28] MEDS: Levofloxacin 750 MG IVPREMIX(* 750 MG/150 ML BAG IVPB SCH (01:59)
[2016-09-28] MEDS: Morphine INJ* 2 MG/ML 1 ML SYRINGE IV PRN ×3 (03:28→20:21)
[2016-09-28] MEDS: Heparin VIAL(*) 5000 UNITS/ML VIAL (FIVE THOUSAND) SUBCUT SCH ×3 (07:44→21:29)
[2016-09-28] MEDS: Fluticasone/Vilanterol MDI(NF) 100/25 MDI INH SCH (07:56)
--- NOTE | 2016-09-28 08:40 | PN ---
Subjective Date of Service: 09/28/16 Interval History: Patient seen and examined at bedside. Mr. Carrillo appears fatigued and states that his chest hurts from coughing and doesn't feel as if he's breathing any better. Remains in sinus tach on telemetry (rate 128-130). Patient is tachypneic , rate 26. Bedside O2 check 85% with face mask at 8Lnc. Family History: Unchanged from Admission Social History: Unchanged from Admission Past Medical History: Unchanged from Admission Objective Active Medications: Albuterol (Ventolin Hfa Inhaler*) 2 puff INH Q4H PRN PRN Reason: SOB/WHEEZING Last Admin: 09/27/16 09:01 Dose: 2 inh Albuterol (Ventolin 2.5 Mg/3 Ml Neb.Marie*) 2.5 mg INH [id number] AWAKE [facility] Last Admin: 09/28/16 07:56 Dose: 2.5 mg Ascorbic Acid (Vitamin C Tab*) 500 mg PO DAILY [facility] Last Admin: 09/27/16 08:47 Dose: 500 mg Bisacodyl (Dulcolax Supp*) 10 mg FL DAILY PRN PRN Reason: CONSTIPATION Docusate Sodium (Colace Cap*) 100 mg PO BID PRN PRN Reason: CONSTIPATION Last Admin: 09/27/16 14:12 Dose: 100 mg Finasteride (Proscar Tab*) 5 mg PO QAM [facility] Last Admin: 09/27/16 08:46 Dose: 5 mg Fluticasone/Vilanterol (Breo Ellipta Mdi 100/25(Nf)) 1 puff INH DAILY [facility] Last Admin: 09/28/16 07:56 Dose: Not Given Guaifenesin (Mucinex*) 600 mg PO BID [facility] Last Admin: 09/27/16 19:39 Dose: 600 mg Heparin Sodium (Porcine) (Heparin Vial(*)) 5,000 units SUBCUT Q8HR [facility] Last Admin: 09/28/16 07:44 Dose: 5,000 units Levofloxacin/Dextrose (Levaquin 750 Mg Ivpremix(*)) 750 mg in 150 mls @ 100 mls /hr IVPB Q24H [facility] Last Admin: 09/28/16 01:59 Dose: 100 mls/hr Ceftriaxone Sodium 1,000 mg/ (Sodium Chloride) 50 mls @ 200 mls/hr IVPB Q24H [facility] Last Admin: 09/27/16 14:12 Dose: 200 mls/hr Ibuprofen (Motrin Tab*) 400 mg PO Q6HR PRN PRN Reason: pain Last Admin: 09/27/16 16:26 Dose: 400 mg Magnesium Hydroxide (Milk Of Magnesia Liq*) 30 ml PO DAILY PRN PRN Reason: CONSTIPATION Last Admin: 09/27/16 14:12 Dose: 30 ml Mirtazapine (Remeron Tab*) 15 mg PO BEDTIME APOORVA Last Admin: 09/27/16 19:39 Dose: 15 mg Morphine Sulfate (Morphine Inj (Syringe)*) 2 mg IV Q4H PRN PRN Reason: PAIN - MILD Last Admin: 09/28/16 03:28 Dose: 2 mg Multivitamins/Minerals (Theragran/Minerals Tab*) 1 tab PO DAILY [facility] Last Admin: 09/27/16 08:47 Dose: 1 tab Polyethylene Glycol/Electrolytes (Miralax*) 17 gm PO DAILY PRN PRN Reason: CONSTIPATION Prednisone (Deltasone Tab*) 30 mg PO DAILY [facility] Last Admin: 09/27/16 08:47 Dose: 30 mg Senna (Senokot Tab*) 2 tab PO BEDTIME PRN PRN Reason: CONSTIPATION Last Admin: 09/27/16 14:12 Dose: 2 tab Temazepam (Restoril Cap*) 30 mg PO BEDTIME PRN PRN Reason: SLEEP Last Admin: 09/27/16 21:31 Dose: 30 mg Tiotropium [place] (Spiriva Cap.Inh*) 1 cap INH BEDTIME [facility] Last Admin: 09/27/16 19:36 Dose: 1 cap Vital Signs 09/27/16 09/27/16 09/27/16 09:00 09:12 13:49 Temperature Pulse Rate 121 100 Respiratory 26 30 18 Rate Blood Pressure 135/71 (mmHg) O2 Sat by Pulse 100 95 Oximetry 09/27/16 09/27/16 09/27/16 14:02 15:37 17:11 Temperature 97.4 F Pulse Rate 95 109 Respiratory 88 20 22 Rate Blood Pressure 127/71 (mmHg) O2 Sat by Pulse 16 95 Oximetry 09/27/16 09/27/16 09/27/16 18:11 19:38 20:48 Temperature 98.7 F Pulse Rate 105 94 Respiratory 22 18 18 Rate Blood Pressure 117/71 (mmHg) O2 Sat by Pulse 94 95 Oximetry 09/28/16 09/28/16 09/28/16 00:08 03:28 08:00 Temperature 97.7 F Pulse Rate 87 115 Respiratory 20 20 23 Rate Blood Pressure 132/55 (mmHg) O2 Sat by Pulse 96 93 Oximetry Oxygen Devices in Use Now: Simple Face Mask Appearance: Elderly male, lying in bed, tachypneic Eyes: No Scleral Icterus Ears/Nose/Mouth/Throat: Mucous Membranes Moist Neck: NL Appearance and Movements; NL JVP Respiratory: Symmetrical Chest Expansion and Respiratory Effort, - - crackles in MESERET, diminished throughout, tachypneic Cardiovascular: RRR - tachycardic Abdominal: NL Sounds; No Tenderness; No Distention Extremities: No Edema Neurological: Alert and Oriented x 3 Lines/Tubes/Other Access: Clean, Dry and Intact Negrete, Clean, Dry and Intact Peripheral IV Nutrition: Taking PO's Result Diagrams: 09/28/16 08:46 09/28/16 08:46 Microbiology and Other Data: Microbiology 09/25/16 18:15 Gram Stain - Final Sputum Expectorated 09/25/16 18:15 Legionella Urinary Antigen - Final Urine Negative Legionella Streptococcus pneumoniae Ag Screen - Final Positive S. Pneumo Antigen Assess/Plan/Problems-Billing Assessment: Mr. Carrillo is an 86 yo male patient with a history significant for COPD (on home O2), PMR, and BPH who was recently admitted and treated for COPD exacerbation and pneumonia and now returns with new MESERET lesion and elevated troponins. - Patient Problems (1) Acute and chronic respiratory failure with hypoxia Code(s): J96.21 - ACUTE AND CHRONIC RESPIRATORY FAILURE WITH HYPOXIA Comment: Patient with resp alkalosis secondary to hypoxia With persistent tachycardia, check CTA to r/o PE Start high flow O2 (2) Sepsis Comment: Patient meets sepsis criteria on admission by SIRS criteria with tachypnea, leukocytosis, and tachycardia. Patient meets sepsis criteria on admission by SOFA criteria with a qSOFA score of 1 or tachypnea. Continue IV levofloxacin, ceftriaxone. (3) Pneumonia Code(s): J18.9 - PNEUMONIA, UNSPECIFIED ORGANISM Comment: Previous concern for pneumonia, treated with levofloxacin and clarithromycin. Now with MESERET infiltrate, S. pneumo antigen positive Continue levofloxacin, add ceftriaxone per ID Appreciate pulm and ID consults (4) COPD (chronic obstructive pulmonary disease) Code(s): J44.9 - CHRONIC OBSTRUCTIVE PULMONARY DISEASE, UNSPECIFIED Comment: Continue current dose of prednisone and standing nebs. Continue Breo Ellipta and Spiriva. Pulmonology to consult. (5) Elevated troponin Code(s): R74.8 - ABNORMAL LEVELS OF OTHER SERUM ENZYMES Comment: Chest pain is reproducible and suspect some costochondritis Suspect demand ischemia with acute PNA and COPD exacerbation Trop peak 0.46 No acute s/s of ischemia on patient's EKG Continue to monitor (6) Polymyalgia rheumatica Code(s): M35.3 - POLYMYALGIA RHEUMATICA Comment: The patient's prednisone dose was increased recently by his PCP for concerns of worsened PMR (he was having leg pain). Continue current dose of prednisone. (7) BPH (benign prostatic hyperplasia) Code(s): N40.0 - BENIGN PROSTATIC HYPERPLASIA WITHOUT LOWER URINRY TRACT SYMP Comment: Continue home finasteride. (8) Insomnia Code(s): G47.00 - INSOMNIA, UNSPECIFIED Comment: Continue prn temazepam (9) Depression Code(s): F32.9 - MAJOR DEPRESSIVE DISORDER, SINGLE EPISODE, UNSPECIFIED Comment: Stable Continue mirtazapine. (10) DVT prophylaxis Comment: SQ heparin (11) DNR (do not resuscitate) Comment: MOL updated on 09/27/16 Patient wishes to be DNR with trial intubation/BiPap Status and Disposition: Inpatient. Transfer to ICU due to increased respiratory requirements. Will ask for electrician second consult.
[2016-09-28] MEDS: predniSONE TAB* 10 MG PO SCH (08:49)
[2016-09-28] MEDS: Multivitamins/Minerals TAB PO SCH (08:49)
[2016-09-28] MEDS: Finasteride TAB* 5 MG PO SCH (08:49)
[2016-09-28] MEDS: guaiFENesin ER TAB 600 MG PO SCH ×2 (08:49→21:30)
[2016-09-28] MEDS: Ascorbic Acid TAB* 500 MG PO SCH (08:49)
[2016-09-28 08:55] LABS: Hematocrit 36 % (42-52); Hemoglobin 11.8 g/dl (14.0-18.0); Mean Corpuscular HGB Conc 33 g/dl (31-36); Mean Corpuscular Hemoglobin 31 pg (27-31); Mean Corpuscular Volume 95 fL (80-94); Mean Platelet Volume 8 um3 (7.4-10.4); Red Blood Count 3.82 10^6/ul (4.0-5.4); Red Cell Distribution Width 15 % (10.5-15); White Blood Count 14.5 10^3/ul (3.5-10.8)
[2016-09-28 09:01] LABS: Add Diff/Slide Review? Slide Review Added; Comments Flag Yes
[2016-09-28 09:11] LABS: BUN/Creatinine Ratio 22.6 (8-20); C Reactive Protein 260.29 mg/L (< 5.00); Calcium 8.7 mg/dL (8.6-10.3); EGFR African American 111.7 (>60); EGFR Non-African American 86.8 (>60); Potassium 3.9 mmol/L (3.5-5.0)
[2016-09-28] MEDS ORDERED: Morphine INJ* 4 MG/ML 1 ML SYRINGE IV ONE (09:51)
--- NOTE | 2016-09-28 10:15 | RAD ---
HISTORY: Follow-up pneumonia COMPARISONS: September 26, 2016 VIEWS:1: Single frontal portable view of the chest at 9:34 AM FINDINGS: LINES AND TUBES: None. CARDIOMEDIASTINAL SILHOUETTE: The cardiomediastinal silhouette is normal for portable technique. PLEURA: The costophrenic angles are sharp. No pleural abnormalities are noted. LUNG PARENCHYMA: There is persistent confluent alveolar opacification of the left upper lung ABDOMEN: The upper abdomen is clear. There is no subphrenic gas. BONES AND SOFT TISSUES: No bone or soft tissue abnormalities are noted. IMPRESSION: PERSISTENT LEFT UPPER LUNG CONSOLIDATION. RECOMMEND CONTINUED FOLLOW-UP UNTIL RESOLUTION TO EXCLUDE UNDERLYING PULMONARY PARENCHYMAL PATHOLOGY.
[2016-09-28 10:25] LABS: PCO2 Arterial 33 mmHg (35-45)
--- NOTE | 2016-09-28 11:59 | PN ---
Hospitalist Progress Note Case discussed with Dr. Mayo. Patient in ICU on high flow and appears more comfortable. Transfer of care to author.
[2016-09-28] MEDS: cefTRIAXone VIAL(*) 1,000 MG in NS 0.9% 50 ML* 50 ML IVPB SCH (13:49)
--- NOTE | 2016-09-28 19:33 | CONS ---
CRITICAL CARE CONSULT: DATE OF CONSULT: 09/28/16 REASON FOR CONSULTATION: Respiratory failure. HISTORY OF PRESENT ILLNESS: This patient is an 86-year-old male with a history of severe COPD, on home oxygen, who was recently hospitalized here from to 09/15/16 for exacerbation of COPD and possible pneumonia, and was readmitted on 09/25/16 for chest pain and increasing shortness of breath. Since admission, the patient has been diagnosed with a pneumococcal pneumonia ( diagnosis by urinary antigen) and was placed on intravenous ceftriaxone. Earlier today, the patient was noted to be somnolent and arterial blood gases revealed a PO2 of 50 and the patient was subsequently transferred to the intensive care unit for hypoxic respiratory failure. MEDICATIONS: On admission to the ICU include; 1. Albuterol. 2. Furosemide. 3. Ceftriaxone. 4. Levofloxacin. 5. Prednisone. PAST MEDICAL HISTORY: Other medical problems include polymyalgia rheumatica, BPH, and depression. PHYSICAL EXAMINATION: After admission to the intensive care unit, the patient appeared to be comfortable and was breathing without difficulty. Vital Signs: Temp 98.1 temporal, heart rate 109, respiratory rate 24 and nonlabored, O2 sat was 98% on high-flow nasal O2 at 40 L per minute, and blood pressure was 112/65 and O2 sats were 100%. HEENT: There was no facial asymmetry. There was no jugular venous distention. Lungs: There were no crackles or wheezes. Occasional rhonchi. Air movement was adequate. Cardiac Exam: No murmurs, rubs, or gallops. Abdomen was distended, but bowel sounds were readily heard and were not high pitched. Abdomen was nontender. Extremities: Were warm, not cyanotic , and nonedematous. DIAGNOSTIC STUDIES/LAB DATA: On the day of admission, white count was 14.5, hemoglobin 11.8, hematocrit 36, platelet count 284,000. Electrolytes were normal, BUN was 19, creatinine was 0.84. C-reactive protein was elevated at 260. Blood gas revealed a PO2 of 50, pCO2 of 33, pH 7.54, O2 sat of 90% ( consistent with a combined respiratory and metabolic alkalosis). Chest x-ray showed an extensive radio-opacification involving the left upper lung field that could represent chronic scarring or an acute infiltrative process. It is also not possible to exclude a neoplastic process. OVERALL IMPRESSION: This patient with severe chronic obstructive pulmonary disease appears to have a community-acquired pneumococcal pneumonia. The gas exchange at the present time appears to be adequate, but the patient does require high-flow nasal O2, which can only be delivered in the intensive care unit. MANAGEMENT PLAN: We will continue all aspects of previous management, in addition to providing the high-flow nasal O2. As mentioned earlier, the patient appears comfortable and there is no need for any further respiratory management. CRITICAL CARE TIME: Sixty minutes. [id number]/[facility] #: [id number] YFN
[2016-09-28] MEDS: Tiotropium CAP.INH* CAP.INH/18 MCG INH SCH (20:48)
[2016-09-28] MEDS: Mirtazapine TAB* 15 MG PO SCH (21:30)
[2016-09-28] MEDS: Temazepam CAP* 15 MG PO PRN (21:37)
[2016-09-29] MEDS: Albuterol 2.5 MG/3 ML NEB.SOL* (0.083%) INH SCH ×4 (01:06→20:23)
[2016-09-29] MEDS: Levofloxacin 750 MG IVPREMIX(* 750 MG/150 ML BAG IVPB SCH (01:57)
[2016-09-29] MEDS: Heparin VIAL(*) 5000 UNITS/ML VIAL (FIVE THOUSAND) SUBCUT SCH ×3 (06:27→21:08)
[2016-09-29] MEDS: Fluticasone/Vilanterol MDI(NF) 100/25 MDI INH SCH (07:29)
[2016-09-29] MEDS: predniSONE TAB* 10 MG PO SCH (07:43)
[2016-09-29] MEDS: Multivitamins/Minerals TAB PO SCH (07:44)
[2016-09-29] MEDS: Ascorbic Acid TAB* 500 MG PO SCH (07:44)
[2016-09-29] MEDS: Ibuprofen TAB* 400 MG PO PRN (07:44)
[2016-09-29] MEDS: Finasteride TAB* 5 MG PO SCH (07:44)
[2016-09-29] MEDS: guaiFENesin ER TAB 600 MG PO SCH ×2 (07:44→21:08)
[2016-09-29] MEDS: Morphine INJ* 2 MG/ML 1 ML SYRINGE IV PRN ×4 (09:58→22:20)
[2016-09-29] MEDS: cefTRIAXone VIAL(*) 1,000 MG in NS 0.9% 50 ML* 50 ML IVPB SCH (13:09)
--- NOTE | 2016-09-29 15:09 | PN ---
Critical Care Services: Patient is breathing comfortably this AM. Had an uneventful evening. Vital Signs: Temp Pulse Resp BP SpO2 FiO2 98.5 F 91 20 101/58 97 100 NOTE: Is on high-flow O2 (25 L/min, at FIO2 = 100%) Physical Exam: Gen:Alert and oriented. Lungs: Scattered rhonchi. No crackles or wheezes. Extremities: No cyanosis or edema. Fluid Balance (Past 24 Hours): 09/29/16 06:59 Intake Total 595 Output Total 1650 Balance -1055 Weight 140 lb 10.479 oz Intake: IV Fluids 235 ABX - LEVOFLOXACIN 150 NOrmal Saline ceftriaxone 85 IVPB ABX - LEVOFLOXACIN ceftriaxone Oral 360 Output: Urine Negrete 1650 Other: Estimated Void # Bowel Movements 1 Estimated Stool Amount Medium # Voids Labs: None today Nutrition: Oral diet Impression: Pneumococcal pneumonia in left lung - patient appears stable, despite the high O2 requirement. Plan: 1. Taper the inhaled O2, as tolerated. 2. Continue antibiotic Rx for pneumococcal pneumonia. I discussed end-of-life decisions with both patient and partner. Plan is DNR, and trial intubation, if necessary.
[2016-09-29] MEDS: Tiotropium CAP.INH* CAP.INH/18 MCG INH SCH (20:26)
[2016-09-29] MEDS: Mirtazapine TAB* 15 MG PO SCH (21:08)
[2016-09-29] MEDS: Temazepam CAP* 15 MG PO PRN (21:11)
[2016-09-30] MEDS: Albuterol 2.5 MG/3 ML NEB.SOL* (0.083%) INH SCH ×4 (00:39→19:46)
[2016-09-30] MEDS: Levofloxacin 750 MG IVPREMIX(* 750 MG/150 ML BAG IVPB SCH (01:43)
[2016-09-30] MEDS: Heparin VIAL(*) 5000 UNITS/ML VIAL (FIVE THOUSAND) SUBCUT SCH ×3 (05:28→21:30)
[2016-09-30 05:39] LABS: Hematocrit 33 % (42-52); Hemoglobin 10.8 g/dl (14.0-18.0); Mean Corpuscular HGB Conc 32 g/dl (31-36); Mean Corpuscular Hemoglobin 31 pg (27-31); Mean Corpuscular Volume 96 fL (80-94); Mean Platelet Volume 8 um3 (7.4-10.4); Red Blood Count 3.48 10^6/ul (4.0-5.4); Red Cell Distribution Width 15 % (10.5-15); White Blood Count 13.4 10^3/ul (3.5-10.8)
[2016-09-30] MEDS: Morphine INJ* 2 MG/ML 1 ML SYRINGE IV PRN ×3 (06:17→11:05)
[2016-09-30] MEDS: Fluticasone/Vilanterol MDI(NF) 100/25 MDI INH SCH (07:13)
--- NOTE | 2016-09-30 08:33 | RAD ---
HISTORY: Pneumonia COMPARISONS: September 28, 2016 VIEWS:1: Single frontal portable view of the chest at 5:20 AM FINDINGS: LINES AND TUBES: None. CARDIOMEDIASTINAL SILHOUETTE: The cardiomediastinal silhouette is normal for portable technique. PLEURA: The costophrenic angles are sharp. No pleural abnormalities are noted. LUNG PARENCHYMA: There is persistent confluent alveolar opacification of the left upper lung. This is stable ABDOMEN: The upper abdomen is clear. There is no subphrenic gas. BONES AND SOFT TISSUES: No bone or soft tissue abnormalities are noted. IMPRESSION: PERSISTENT LEFT UPPER LUNG CONSOLIDATION
[2016-09-30] MEDS: guaiFENesin ER TAB 600 MG PO SCH ×2 (08:47→21:30)
[2016-09-30] MEDS: Multivitamins/Minerals TAB PO SCH (08:47)
[2016-09-30] MEDS: predniSONE TAB* 10 MG PO SCH (08:47)
[2016-09-30] MEDS: Ascorbic Acid TAB* 500 MG PO SCH (08:47)
[2016-09-30] MEDS: Finasteride TAB* 5 MG PO SCH (08:47)
--- NOTE | 2016-09-30 11:35 | PN ---
Critical Care Services: Patient has another uneventful evening, and is now off Vapotherm (is on nasal O2 at 12-15 L/min). He is receiving ceftriaxone for a pneumococcal pneumonia in the left lung (is PCN allergic). Vital Signs: Temp Pulse Resp BP SpO2 FiO2 98.9 F 110 20 114/65 99 50 Physical Exam: Gen:Alert and oriented. Breathing comfortably Lungs:Coarse rhonchi (L>R). No wheezes. Abdomen:Not distended Extremities:No cyanosis or edema. Fluid Balance (Past 24 Hours): 09/30/16 06:59 Intake Total 780 Output Total 1200 Balance -420 Weight 143 lb 5oz Intake: IV Fluids 170 ABX - LEVOFLOXACIN 150 NOrmal Saline 20 ceftriaxone IVPB 60 ceftriaxone 60 Oral 550 Output: Negrete 1200 Other: # Bowel Movements Estimated Stool Amount Labs: 09/30/16 05:30 WBC 13.4 H Hgb 10.8 L Hct 33 L Plt Count 210 NOTE: WBC count was 17k on 09/25. Studies: None today Nutrition: Oral diet Impression: Gas exchange has improved over past 48 hours. Plan: Transfer out of ICU for continued management of pneumococcal pneumonia. I also think that a bronchoscopy would be bolton if patient continues to improve ( because the x-ray appearance of the left lung could represent a neoplasm). Time: 35 minutes devoted to the patient examination, and the transfer.
[2016-09-30] MEDS: Ibuprofen TAB* 400 MG PO PRN (11:49)
[2016-09-30] MEDS ORDERED: oxyCODONE/Acetamin 5/325 MG* TAB ONE (13:31)
[2016-09-30] MEDS: cefTRIAXone VIAL(*) 1,000 MG in NS 0.9% 50 ML* 50 ML IVPB SCH (13:34)
[2016-09-30] MEDS: oxyCODONE/Acetamin 5/325 MG* TAB PO PRN (15:40)
[2016-09-30] MEDS: Tiotropium CAP.INH* CAP.INH/18 MCG INH SCH (20:27)
[2016-09-30] MEDS: Mirtazapine TAB* 15 MG PO SCH (21:30)
[2016-09-30] MEDS: Temazepam CAP* 15 MG PO PRN (21:36)
[2016-10-01] MEDS: Albuterol 2.5 MG/3 ML NEB.SOL* (0.083%) INH SCH ×4 (00:53→19:41)
--- NOTE | 2016-10-01 04:19 | PN ---
Progress Note - Progress Note Date of Service: 10/01/16 Note: Called to see patient after fall. he hit his head. He appears weak and fatigued but neurologically intact. A + O x 3. PEREZ. CT scan checked. No acute findings. Monitor.
[2016-10-01] MEDS: Heparin VIAL(*) 5000 UNITS/ML VIAL (FIVE THOUSAND) SUBCUT SCH ×3 (05:41→21:39)
[2016-10-01] MEDS: oxyCODONE/Acetamin 5/325 MG* TAB PO PRN ×3 (06:26→20:30)
[2016-10-01] MEDS: Fluticasone/Vilanterol MDI(NF) 100/25 MDI INH SCH (07:02)
--- NOTE | 2016-10-01 08:01 | RAD ---
INDICATION: Intracranial injury. Fall. COMPARISON: CT brain October 01, 2002 TECHNIQUE: Noncontrast axial source images were acquired from the skull base to the vertex. FINDINGS: Ventricles/sulci: There is cortical atrophy with compensatory dilatation of the CSF spaces. Brain parenchyma: There is periventricular and subcortical white matter change compatible with chronic ischemia. Intracranial hemorrhage:None. Extra-axial spaces: There are no abnormal extra axial fluid collections or evidence of extra-axial mass. Calvarium: There is no calvarial fracture or other calvarial abnormality. Scalp: Mild right parietal soft tissue swelling. Paranasal sinuses/mastoid: The paranasal sinuses and mastoid air cells are clear. Other: None. IMPRESSION: No acute intracranial findings
--- NOTE | 2016-10-01 08:03 | RAD ---
INDICATION: Fall. Right hip pain COMPARISON: None TECHNIQUE: An AP view of the pelvis and AP views of the hip in neutral and abducted position were obtained FINDINGS: Bones: There are no acute bony findings. Joint spaces: There is mild osteoarthritic change but the right hip. 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 The visualized components appear well seated. SI joints/symphysis: The SI joints and symphysis are intact. Other: None IMPRESSION: NO ACUTE BONY ABNORMALITIES ABOUT THE RIGHT HIP.
[2016-10-01] MEDS: predniSONE TAB* 10 MG PO SCH (09:15)
[2016-10-01] MEDS: Multivitamins/Minerals TAB PO SCH (09:15)
[2016-10-01] MEDS: Finasteride TAB* 5 MG PO SCH (09:15)
[2016-10-01] MEDS: Magnesium Hydroxide LIQ* 30 ML UDC PO PRN (09:16)
[2016-10-01] MEDS: Ibuprofen TAB* 400 MG PO PRN (09:16)
[2016-10-01] MEDS: guaiFENesin ER TAB 600 MG PO SCH ×2 (09:16→20:30)
[2016-10-01] MEDS: Ascorbic Acid TAB* 500 MG PO SCH (09:16)
--- NOTE | 2016-10-01 14:06 | PN ---
Subjective Date of Service: 10/01/16 Interval History: Overnight events noted. Patient seen this afternoon. Did not recall falling. Feels that his breathing is improving. No fever or chills. Still with cough and occasional chest pain. Focused on getting better so he can be discharged. Family History: Unchanged from Admission Social History: Unchanged from Admission Past Medical History: Unchanged from Admission Objective Active Medications: Albuterol (Ventolin Hfa Inhaler*) 2 puff INH Q4H PRN Albuterol (Ventolin 2.5 Mg/3 Ml Neb.Marie*) 2.5 mg INH [id number] AWAKE [facility] Ascorbic Acid (Vitamin C Tab*) 500 mg PO DAILY [facility] Bisacodyl (Dulcolax Supp*) 10 mg [place] DAILY PRN Docusate Sodium (Colace Cap*) 100 mg PO BID PRN Finasteride (Proscar Tab*) 5 mg PO QAM [facility] Fluticasone/Vilanterol (Breo Ellipta Mdi 100/25(Nf)) 1 puff INH DAILY [facility] Guaifenesin (Mucinex*) 600 mg PO BID [facility] Heparin Sodium (Porcine) (Heparin Vial(*)) 5,000 units SUBCUT Q8HR [facility] Ceftriaxone Sodium 1,000 mg/ (Sodium Chloride) 50 mls @ 200 mls/hr IVPB Q24H [facility] Ibuprofen (Motrin Tab*) 400 mg PO Q6HR PRN Magnesium Hydroxide (Milk Of Magnesia Liq*) 30 ml PO DAILY PRN Mirtazapine (Remeron Tab*) 15 mg PO BEDTIME [facility] Multivitamins/Minerals (Theragran/Minerals Tab*) 1 tab PO DAILY [facility] Oxycodone/Acetaminophen (Percocet 5/325 Tab*) 1 tab PO Q4H PRN Oxycodone/Acetaminophen (Percocet 5/325 Tab*) 2 tab PO Q4H PRN Polyethylene Glycol/Electrolytes (Miralax*) 17 gm PO DAILY PRN Prednisone (Deltasone Tab*) 30 mg PO DAILY [facility] Senna (Senokot Tab*) 2 tab PO BEDTIME PRN Temazepam (Restoril Cap*) 30 mg PO BEDTIME PRN Tiotropium [place] (Spiriva Cap.Inh*) 1 cap INH BEDTIME [facility] Vital Signs 09/30/16 09/30/16 09/30/16 14:25 14:48 15:40 Temperature 97.3 F 96.3 F Pulse Rate 97 97 Respiratory 22 20 18 Rate Blood Pressure 98/61 98/61 (mmHg) O2 Sat by Pulse 100 100 Oximetry 10/01/16 10/01/16 10/01/16 09:17 11:00 12:06 Temperature 97.6 F Pulse Rate 102 98 Respiratory 25 18 18 Rate Blood Pressure 104/65 92/54 (mmHg) O2 Sat by Pulse 95 96 Oximetry Oxygen Devices in Use Now: Nasal Cannula - 4L Appearance: Elderly, frail, M, sitting in chair in NAD Eyes: No Scleral Icterus Ears/Nose/Mouth/Throat: Mucous Membranes Moist Neck: NL Appearance and Movements; NL JVP Respiratory: Symmetrical Chest Expansion and Respiratory Effort, - - Prolonged expiratory phase, no wheezing appreciated, good air movement Cardiovascular: NL Sounds; No Murmurs; No JVD, RRR Abdominal: - - Soft, mildly distended, non-tender, BS+ Lymphatic: No Cervical Adenopathy Extremities: No Edema Skin: No Rash or Ulcers Neurological: - - Alert, oriented, no focal deficit Result Diagrams: 09/30/16 05:30 09/28/16 08:46 Assess/Plan/Problems-Billing Assessment: Mr. Carrillo is an 86 yo male patient with a history significant for COPD (on home O2), PMR, and BPH who was recently admitted and treated for COPD exacerbation and pneumonia and now returns sepsis 2/2 pneumococcal PNA, demand- mediated NSTEMI, course complicated by acute on chronic hypoxic respiratory failure requiring transfer to ICU and [facility]. - Patient Problems (1) Acute and chronic respiratory failure with hypoxia Current Visit: Yes Comment: Transferred out of ICU after being weaned off of vapotherm. Currently on 4L NC. (2) Sepsis Current Visit: No Comment: 2/2 pneumococcal PNA (positive urine antigen) Continue IV ceftriaxone. (3) Elevated troponin Current Visit: Yes Comment: Chest pain is reproducible and suspect some costochondritis Suspect demand ischemia with acute PNA and COPD exacerbation (4) COPD (chronic obstructive pulmonary disease) Current Visit: No Comment: Continue current dose of prednisone and standing/prn nebs. Continue Dulera (in place of Breo) and Spiriva. 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 PC evaluated, will continue discussions. (5) Polymyalgia rheumatica Current Visit: No Comment: Prednisone dose was increased recently by his PCP for concerns of worsened PMR ( he was having leg pain). Continue current dose of prednisone. (6) BPH (benign prostatic hyperplasia) Current Visit: Yes Comment: Continue home finasteride. (7) Depression Current Visit: Yes Comment: Stable Continue mirtazapine. (8) DVT prophylaxis Current Visit: No Comment: SQ heparin (9) DNR (do not resuscitate) Current Visit: No Comment: MOLST updated on 09/27/16 Patient wishes to be DNR with trial intubation/BiPap Status and Disposition: Inpatient
[2016-10-01] MEDS: cefTRIAXone VIAL(*) 1,000 MG in NS 0.9% 50 ML* 50 ML IVPB SCH (14:08)
[2016-10-01] MEDS: Mometasone/Formoter 200/5 MDI INH SCH (19:41)
[2016-10-01] MEDS: Tiotropium CAP.INH* CAP.INH/18 MCG INH SCH (19:41)
[2016-10-01] MEDS: Mirtazapine TAB* 15 MG PO SCH (20:30)
[2016-10-02] MEDS: Albuterol 2.5 MG/3 ML NEB.SOL* (0.083%) INH SCH ×4 (01:11→20:16)
[2016-10-02] MEDS: Ibuprofen TAB* 400 MG PO PRN (05:34)
[2016-10-02] MEDS: Heparin VIAL(*) 5000 UNITS/ML VIAL (FIVE THOUSAND) SUBCUT SCH ×3 (05:34→20:54)
[2016-10-02] MEDS: Mometasone/Formoter 200/5 MDI INH SCH ×2 (08:01→20:18)
[2016-10-02] MEDS: oxyCODONE/Acetamin 5/325 MG* TAB PO PRN ×2 (08:47→17:22)
[2016-10-02] MEDS: Ascorbic Acid TAB* 500 MG PO SCH (08:48)
[2016-10-02] MEDS: predniSONE TAB* 10 MG PO SCH (08:48)
[2016-10-02] MEDS: Multivitamins/Minerals TAB PO SCH (08:48)
[2016-10-02] MEDS: Finasteride TAB* 5 MG PO SCH (08:48)
[2016-10-02] MEDS: guaiFENesin ER TAB 600 MG PO SCH ×2 (08:49→20:54)
[2016-10-02] MEDS: Magnesium Hydroxide LIQ* 30 ML UDC PO PRN (11:48)
--- NOTE | 2016-10-02 12:29 | PN ---
Subjective Date of Service: 10/02/16 Interval History: Patient seen this afternoon. No new complaints. Still with intermittent, productive cough. Feels sweaty at times, no documented fevers. Family History: Unchanged from Admission Social History: Unchanged from Admission Past Medical History: Unchanged from Admission Objective Active Medications: Albuterol (Ventolin Hfa Inhaler*) 2 puff INH Q4H PRN Albuterol (Ventolin 2.5 Mg/3 Ml Neb.Marie*) 2.5 mg INH [id number] AWAKE [facility] Ascorbic Acid (Vitamin C Tab*) 500 mg PO DAILY [facility] Bisacodyl (Dulcolax Supp*) 10 mg [place] DAILY PRN Docusate Sodium (Colace Cap*) 100 mg PO BID PRN Finasteride (Proscar Tab*) 5 mg PO QAM [facility] Guaifenesin (Mucinex*) 600 mg PO BID [facility] Heparin Sodium (Porcine) (Heparin Vial(*)) 5,000 units SUBCUT Q8HR [facility] Ceftriaxone Sodium 1,000 mg/ (Sodium Chloride) 50 mls @ 200 mls/hr IVPB Q24H [facility] Ibuprofen (Motrin Tab*) 400 mg PO Q6HR PRN Magnesium Hydroxide (Milk Of Magnesia Liq*) 30 ml PO DAILY PRN Mirtazapine (Remeron Tab*) 15 mg PO BEDTIME [facility] Mometasone Furoate/Formoterol Fumar (Dulera 200/5 Mdi*) 2 puff INH BID [facility] Multivitamins/Minerals (Theragran/Minerals Tab*) 1 tab PO DAILY [facility] Oxycodone/Acetaminophen (Percocet 5/325 Tab*) 1 tab PO Q4H PRN Oxycodone/Acetaminophen (Percocet 5/325 Tab*) 2 tab PO Q4H PRN Polyethylene Glycol/Electrolytes (Miralax*) 17 gm PO DAILY PRN Prednisone (Deltasone Tab*) 30 mg PO DAILY [facility] Senna (Senokot Tab*) 2 tab PO BEDTIME PRN Temazepam (Restoril Cap*) 30 mg PO BEDTIME PRN Tiotropium [place] (Spiriva Cap.Inh*) 1 cap INH BEDTIME [facility] Vital Signs 10/01/16 10/01/16 10/01/16 13:00 13:09 15:44 Temperature 97.6 F Pulse Rate 95 89 Respiratory 18 18 16 Rate Blood Pressure 99/53 (mmHg) O2 Sat by Pulse 93 97 Oximetry 10/01/16 10/01/16 10/01/16 20:30 22:30 23:51 Temperature 97.6 F Pulse Rate 100 Respiratory 20 22 16 Rate Blood Pressure 110/59 (mmHg) O2 Sat by Pulse 96 Oximetry 10/02/16 10/02/16 10/02/16 03:33 07:26 07:55 Temperature 98.8 F 98.3 F Pulse Rate 95 94 94 Respiratory 16 16 Rate Blood Pressure 120/73 103/55 (mmHg) O2 Sat by Pulse 94 94 98 Oximetry Oxygen Devices in Use Now: Nasal Cannula - 4L Appearance: Elderly, M, laying in bed in NAD Eyes: No Scleral Icterus Ears/Nose/Mouth/Throat: Mucous Membranes Moist Neck: NL Appearance and Movements; NL JVP Respiratory: Symmetrical Chest Expansion and Respiratory Effort, - - Prolonged expiratory phase, no wheezing Cardiovascular: NL Sounds; No Murmurs; No JVD, RRR Abdominal: NL Sounds; No Tenderness; No Distention Lymphatic: No Cervical Adenopathy Extremities: No Edema Skin: No Rash or Ulcers Neurological: Alert and Oriented x 3 Result Diagrams: 09/30/16 05:30 09/28/16 08:46 Assess/Plan/Problems-Billing Assessment: Mr. Carrillo is an 86 yo male patient with a history significant for COPD (on home O2), PMR, and BPH who was recently admitted and treated for COPD exacerbation and pneumonia and now returns sepsis 2/2 pneumococcal PNA, demand- mediated NSTEMI, course complicated by acute on chronic hypoxic respiratory failure requiring transfer to ICU and [facility]. - Patient Problems (1) Acute and chronic respiratory failure with hypoxia Current Visit: Yes Comment: Transferred out of ICU after being weaned off of vapotherm. Currently on 4L NC. (2) Sepsis Current Visit: No Comment: 2/2 pneumococcal PNA (positive urine antigen) Continue IV ceftriaxone (Day 7), would opt for prolonged ABx course as he has hx of recurrent symptoms (3) Elevated troponin Current Visit: Yes Comment: Chest pain is reproducible and suspect some costochondritis Suspect demand ischemia with acute PNA and COPD exacerbation (4) COPD (chronic obstructive pulmonary disease) Current Visit: No Comment: Continue current dose of prednisone and standing/prn nebs. Continue Dulera (in place of Breo) and Spiriva. 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 (5) Polymyalgia rheumatica Current Visit: No Comment: Prednisone dose was increased recently by his PCP for concerns of worsened PMR ( he was having leg pain). Continue current dose of prednisone. (6) BPH (benign prostatic hyperplasia) Current Visit: Yes Comment: Continue home finasteride. (7) Depression Current Visit: Yes Comment: Stable Continue mirtazapine. (8) DVT prophylaxis Current Visit: No Comment: SQ heparin (9) DNR (do not resuscitate) Current Visit: No Comment: MOLST updated on 09/27/16 Patient wishes to be DNR with trial intubation/BiPap Status and Disposition: Inpatient, will need MERVIN, should be medically ready in next 1-2 days
[2016-10-02] MEDS: cefTRIAXone VIAL(*) 1,000 MG in NS 0.9% 50 ML* 50 ML IVPB SCH (14:06)
[2016-10-02] MEDS: Mirtazapine TAB* 15 MG PO SCH (20:54)
[2016-10-02] MEDS: Tiotropium CAP.INH* CAP.INH/18 MCG INH SCH (21:01)
[2016-10-03] MEDS: Albuterol 2.5 MG/3 ML NEB.SOL* (0.083%) INH SCH ×4 (00:28→19:43)
[2016-10-03] MEDS: Heparin VIAL(*) 5000 UNITS/ML VIAL (FIVE THOUSAND) SUBCUT SCH ×3 (07:24→21:44)
[2016-10-03] MEDS ORDERED: Acetaminophen TAB* 325 MG ONE (08:01)
[2016-10-03] MEDS: Mometasone/Formoter 200/5 MDI INH SCH ×2 (08:03→19:44)
--- NOTE | 2016-10-03 09:00 | RAD ---
Indication: Fever. 2 views of the chest including left upper lobe airspace disease is noted. This is unchanged from September 30, 2016. Right lung field is clear. IMPRESSION: Left upper lobe airspace disease consistent with left upper lobe pneumonia. Left basilar airspace disease and nodularity is noted.
--- NOTE | 2016-10-03 09:18 | PN ---
Subjective Date of Service: 10/03/16 Interval History: Patient with fever this AM, tachycardia and increased O2 requirement. Patient seen this morning. Says he does not feel well. Breathing is labored. Feels warm. Family History: Unchanged from Admission Social History: Unchanged from Admission Past Medical History: Unchanged from Admission Objective Active Medications: Acetaminophen (Tylenol Tab*) 650 mg PO Q4H PRN Albuterol (Ventolin Hfa Inhaler*) 2 puff INH Q4H PRN Albuterol (Ventolin 2.5 Mg/3 Ml Neb.Marie*) 2.5 mg INH [id number] AWAKE [facility] Ascorbic Acid (Vitamin C Tab*) 500 mg PO DAILY [facility] Bisacodyl (Dulcolax Supp*) 10 mg [place] DAILY PRN Docusate Sodium (Colace Cap*) 100 mg PO BID PRN Finasteride (Proscar Tab*) 5 mg PO QAM [facility] Guaifenesin (Mucinex*) 600 mg PO BID [facility] Heparin Sodium (Porcine) (Heparin Vial(*)) 5,000 units SUBCUT Q8HR [facility] Ceftriaxone Sodium 1,000 mg/ (Sodium Chloride) 50 mls @ 200 mls/hr IVPB Q24H [facility] Ibuprofen (Motrin Tab*) 400 mg PO Q6HR PRN Magnesium Hydroxide (Milk Of Magnesia Liq*) 30 ml PO DAILY PRN Mirtazapine (Remeron Tab*) 15 mg PO BEDTIME [facility] Mometasone Furoate/Formoterol Fumar (Dulera 200/5 Mdi*) 2 puff INH BID [facility] Multivitamins/Minerals (Theragran/Minerals Tab*) 1 tab PO DAILY [facility] Oxycodone/Acetaminophen (Percocet 5/325 Tab*) 1 tab PO Q4H PRN Oxycodone/Acetaminophen (Percocet 5/325 Tab*) 2 tab PO Q4H PRN Polyethylene Glycol/Electrolytes (Miralax*) 17 gm PO DAILY PRN Senna (Senokot Tab*) 2 tab PO BEDTIME PRN Tiotropium [place] (Spiriva Cap.Inh*) 1 cap INH BEDTIME [facility] Vital Signs 10/02/16 10/02/16 10/02/16 10:47 11:55 13:57 Temperature 96.5 F Pulse Rate 106 100 Respiratory 18 18 Rate Blood Pressure 111/55 (mmHg) O2 Sat by Pulse 93 100 Oximetry 10/03/16 10/03/16 10/03/16 03:51 07:51 08:07 Temperature 99.4 F 101.5 F Pulse Rate 111 121 119 Respiratory 16 16 24 Rate Blood Pressure 114/67 113/70 (mmHg) O2 Sat by Pulse 95 98 98 Oximetry Oxygen Devices in Use Now: Nasal Cannula - 8L Appearance: Elderly, M, frail appearing, in mild respiratory distress Eyes: No Scleral Icterus Ears/Nose/Mouth/Throat: Mucous Membranes Moist Neck: NL Appearance and Movements; NL JVP Respiratory: - - Tachypnea, diminished/bronchial BS in bases, some slightly coarse expiratory BS in upper lobes B/L, no wheezing Cardiovascular: - - Tachycardic, difficult to hear over BS Abdominal: NL Sounds; No Tenderness; No Distention Lymphatic: No Cervical Adenopathy Extremities: No Edema Skin: No Rash or Ulcers Neurological: - - Alert, oriented to self, month, place, thought it was 1978 Result Diagrams: 10/03/16 10:18 09/28/16 08:46 Assess/Plan/Problems-Billing Assessment: Mr. Carrillo is an 86 yo male patient with a history significant for COPD (on home O2), PMR, and BPH who was recently admitted and treated for COPD exacerbation and pneumonia and now returns sepsis 2/2 pneumococcal PNA, demand- mediated NSTEMI, course complicated by acute on chronic hypoxic respiratory failure requiring transfer to ICU and [facility]. - Patient Problems (1) Acute and chronic respiratory failure with hypoxia Current Visit: Yes Comment: 2/2 PNA. Transferred out of ICU after being weaned off of vapotherm. O2 increased to 8L this morning, will continue to monitor closely (2) Sepsis Current Visit: No Comment: 2/2 pneumococcal PNA (positive urine antigen) Fever 7/4 AM, will recheck CBC/CRP, get procalcitonin, BCx. CXR done this AM looks improved from prior. Continue IV ceftriaxone (Day 8) for now. May need to broaden. (3) Elevated troponin Current Visit: Yes Comment: EKG this AM is mostly the same, some rate related changes Chest pain is reproducible and suspect some costochondritis Suspect demand ischemia with acute PNA and COPD exacerbation (4) COPD (chronic obstructive pulmonary disease) Current Visit: No Comment: Continue current dose of prednisone and standing/prn nebs. Continue Dulera (in place of Breo) and Spiriva. 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 (5) Polymyalgia rheumatica Current Visit: No Comment: Prednisone dose was increased recently by his PCP for concerns of worsened PMR ( he was having leg pain). Continue current dose of prednisone. (6) BPH (benign prostatic hyperplasia) Current Visit: Yes Comment: Continue home finasteride. (7) Depression Current Visit: Yes Comment: Stable Continue mirtazapine. (8) DVT prophylaxis Current Visit: No Comment: SQ heparin (9) DNR (do not resuscitate) Current Visit: No Comment: MOLST updated on 09/27/16 Patient wishes to be DNR with trial intubation/BiPap Status and Disposition: Inpatient
[2016-10-03] MEDS: Finasteride TAB* 5 MG PO SCH (09:44)
[2016-10-03] MEDS: Multivitamins/Minerals TAB PO SCH (09:44)
[2016-10-03] MEDS: guaiFENesin ER TAB 600 MG PO SCH ×2 (09:45→20:23)
[2016-10-03] MEDS: Ascorbic Acid TAB* 500 MG PO SCH (09:45)
[2016-10-03 10:24] LABS: Hematocrit 34 % (42-52); Hemoglobin 10.9 g/dl (14.0-18.0); Mean Corpuscular HGB Conc 33 g/dl (31-36); Mean Corpuscular Hemoglobin 31 pg (27-31); Mean Corpuscular Volume 94 fL (80-94); Mean Platelet Volume 8 um3 (7.4-10.4); Red Blood Count 3.58 10^6/ul (4.0-5.4); Red Cell Distribution Width 15 % (10.5-15); White Blood Count 14.3 10^3/ul (3.5-10.8)
[2016-10-03 10:26] LABS: Add Diff/Slide Review? Slide Review Added; Comments Flag Yes
[2016-10-03] MEDS: oxyCODONE/Acetamin 5/325 MG* TAB PO PRN (10:29)
[2016-10-03] MEDS: predniSONE TAB* 10 MG PO SCH (10:30)
[2016-10-03] MEDS ORDERED: predniSONE TAB* 10 MG PO ONE (11:00)
[2016-10-03] MEDS: cefTRIAXone VIAL(*) 1,000 MG in NS 0.9% 50 ML* 50 ML IVPB SCH (14:08)
[2016-10-03] MEDS: Tiotropium CAP.INH* CAP.INH/18 MCG INH SCH (19:44)
[2016-10-03] MEDS: Mirtazapine TAB* 15 MG PO SCH (20:23)
[2016-10-03] MEDS: Ondansetron INJ* 2 MG/ML VIAL IV PRN (20:23)
[2016-10-03] MEDS: Ibuprofen TAB* 400 MG PO PRN (20:25)
[2016-10-04] MEDS: Albuterol 2.5 MG/3 ML NEB.SOL* (0.083%) INH SCH ×4 (02:01→19:44)
[2016-10-04] MEDS: Ondansetron INJ* 2 MG/ML VIAL IV PRN ×2 (03:35→11:40)
[2016-10-04] MEDS: oxyCODONE/Acetamin 5/325 MG* TAB PO PRN ×2 (04:15→09:22)
[2016-10-04] MEDS: Heparin VIAL(*) 5000 UNITS/ML VIAL (FIVE THOUSAND) SUBCUT SCH ×3 (05:28→22:08)
[2016-10-04] MEDS: Mometasone/Formoter 200/5 MDI INH SCH ×2 (07:48→19:46)
[2016-10-04] MEDS: Multivitamins/Minerals TAB PO SCH (08:20)
[2016-10-04] MEDS: guaiFENesin ER TAB 600 MG PO SCH ×2 (08:21→20:25)
[2016-10-04] MEDS: Finasteride TAB* 5 MG PO SCH (08:21)
[2016-10-04] MEDS: Magnesium Hydroxide LIQ* 30 ML UDC PO PRN (08:21)
[2016-10-04] MEDS: Ascorbic Acid TAB* 500 MG PO SCH (08:21)
--- NOTE | 2016-10-04 11:16 | PN ---
Subjective Date of Service: 10/04/16 Interval History: Seen with family Dave at bedside Reports continued left upper chest pain without change +nausea Feels weak Family History: Unchanged from Admission Social History: Unchanged from Admission Past Medical History: Unchanged from Admission Objective Active Medications: Acetaminophen (Tylenol Tab*) 650 mg PO Q4H PRN PRN Reason: TEMP EQUAL OR GREATER 101 F Albuterol (Ventolin Hfa Inhaler*) 2 puff INH Q4H PRN PRN Reason: SOB/WHEEZING Last Admin: 09/27/16 09:01 Dose: 2 inh Albuterol (Ventolin 2.5 Mg/3 Ml Neb.Marie*) 2.5 mg INH [id number] AWAKE [facility] Last Admin: 10/04/16 07:48 Dose: 2.5 mg Ascorbic Acid (Vitamin C Tab*) 500 mg PO DAILY [facility] Last Admin: 10/04/16 08:21 Dose: 500 mg Bisacodyl (Dulcolax Supp*) 10 mg [place] DAILY PRN PRN Reason: CONSTIPATION Docusate Sodium (Colace Cap*) 100 mg PO BID PRN PRN Reason: CONSTIPATION Last Admin: 09/27/16 14:12 Dose: 100 mg Finasteride (Proscar Tab*) 5 mg PO QAM [facility] Last Admin: 10/04/16 08:21 Dose: 5 mg Guaifenesin (Mucinex*) 600 mg PO BID [facility] Last Admin: 10/04/16 08:21 Dose: 600 mg Heparin Sodium (Porcine) (Heparin Vial(*)) 5,000 units SUBCUT Q8HR [facility] Last Admin: 10/04/16 05:28 Dose: 5,000 units Ceftriaxone Sodium 1,000 mg/ (Sodium Chloride) 50 mls @ 200 mls/hr IVPB Q24H [facility] Last Admin: 10/03/16 14:08 Dose: 200 mls/hr Ibuprofen (Motrin Tab*) 400 mg PO Q6HR PRN PRN Reason: pain Last Admin: 10/03/16 20:25 Dose: 400 mg Magnesium Hydroxide (Milk Of Magnesia Liq*) 30 ml PO DAILY PRN PRN Reason: CONSTIPATION Last Admin: 10/04/16 08:21 Dose: 30 ml Mirtazapine (Remeron Tab*) 15 mg PO BEDTIME [facility] Last Admin: 10/03/16 20:23 Dose: 15 mg Mometasone Furoate/Formoterol Fumar (Dulera 200/5 Mdi*) 2 puff INH BID [facility] Last Admin: 10/04/16 07:48 Dose: 2 puff Multivitamins/Minerals (Theragran/Minerals Tab*) 1 tab PO DAILY [facility] Last Admin: 10/04/16 08:20 Dose: 1 tab Ondansetron HCl (Zofran Inj*) 4 mg IV Q6H PRN PRN Reason: NAUSEA Last Admin: 10/04/16 03:35 Dose: 4 mg Oxycodone/Acetaminophen (Percocet 5/325 Tab*) 1 tab PO Q4H PRN PRN Reason: PAIN - MILD Last Admin: 10/04/16 09:22 Dose: 1 tab Oxycodone/Acetaminophen (Percocet 5/325 Tab*) 2 tab PO Q4H PRN PRN Reason: PAIN - MODERATE TO SEVERE Last Admin: 10/02/16 17:22 Dose: 2 tab Polyethylene Glycol/Electrolytes (Miralax*) 17 gm PO DAILY PRN PRN Reason: CONSTIPATION Senna (Senokot Tab*) 2 tab PO BEDTIME PRN PRN Reason: CONSTIPATION Last Admin: 09/27/16 14:12 Dose: 2 tab Tiotropium [place] (Spiriva Cap.Inh*) 1 cap INH BEDTIME [facility] Last Admin: 10/03/16 19:44 Dose: 1 cap Vital Signs 10/03/16 10/03/16 10/03/16 11:24 12:29 13:48 Temperature 97.5 F Pulse Rate 103 94 Respiratory 28 18 24 Rate Blood Pressure 97/53 (mmHg) O2 Sat by Pulse 96 92 Oximetry 10/03/16 10/03/16 10/03/16 15:49 17:11 17:30 Temperature 98.2 F 98.2 F Pulse Rate 90 Respiratory 24 Rate Blood Pressure 111/60 (mmHg) O2 Sat by Pulse 99 96 97 Oximetry 10/03/16 10/03/16 10/03/16 19:45 20:00 20:06 Temperature 97.4 F Pulse Rate 97 101 Respiratory 20 20 20 Rate Blood Pressure 99/54 (mmHg) O2 Sat by Pulse 94 97 Oximetry 10/03/16 10/04/16 10/04/16 23:36 03:33 04:15 Temperature 98.5 F 98.0 F Pulse Rate 95 96 Respiratory 22 20 16 Rate Blood Pressure 103/52 110/56 (mmHg) O2 Sat by Pulse 98 97 Oximetry 10/04/16 10/04/16 10/04/16 07:29 07:50 08:00 Temperature 98.1 F Pulse Rate 94 96 Respiratory 18 18 20 Rate Blood Pressure 116/61 (mmHg) O2 Sat by Pulse 94 94 Oximetry 10/04/16 09:22 Temperature Pulse Rate Respiratory 20 Rate Blood Pressure (mmHg) O2 Sat by Pulse Oximetry Oxygen Devices in Use Now: Nasal Cannula - 4L Appearance: ill appearing, NAD Eyes: No Scleral Icterus, PERRLA Ears/Nose/Mouth/Throat: Clear Oropharnyx, - - dry mm Neck: NL Appearance and Movements; NL JVP, Trachea Midline Respiratory: Symmetrical Chest Expansion and Respiratory Effort, - - decreased, no adventitious lung sounds Cardiovascular: RRR Abdominal: NL Sounds; No Tenderness; No Distention, No Hepatosplenomegaly Lymphatic: No Cervical Adenopathy Extremities: No Edema Skin: No Rash or Ulcers Neurological: - - AOx2 to self and location, thinks 1979. Result Diagrams: 10/03/16 10:18 09/28/16 08:46 Microbiology and Other Data: Microbiology 09/25/16 18:15 Gram Stain - Final Sputum Expectorated 09/25/16 18:15 Legionella Urinary Antigen - Final Urine Negative Legionella Streptococcus pneumoniae Ag Screen - Final Positive S. Pneumo Antigen Assess/Plan/Problems-Billing Assessment: Mr. Carrillo is an 86 yo male patient with a history significant for COPD (on home 2L O2), PMR, and BPH who was recently admitted and treated for COPD exacerbation and pneumonia and now returns sepsis 2/2 pneumococcal PNA, demand- mediated NSTEMI, course complicated by acute on chronic hypoxic respiratory failure requiring transfer to ICU and [facility]. - Patient Problems (1) Acute and chronic respiratory failure with hypoxia Comment: 2/2 PNA. O2 back to 4L with O2sat 90% continue to monitor closely (2) Sepsis Comment: 2/2 pneumococcal PNA (positive urine antigen) Fever 7/4 AM -CRP improving since admission. Procalcitonin nominal CXR done improving Continue IV ceftriaxone (Day 9) (3) Elevated troponin Comment: Chest pain is reproducible and suspect some costochondritis Suspect demand ischemia with acute PNA and COPD exacerbation (4) COPD (chronic obstructive pulmonary disease) Comment: Continue prednisone 30mg (day 9) and standing/prn nebs. Continue Dulera (in place of Breo) and Spiriva. 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 (5) Polymyalgia rheumatica Comment: Prednisone dose was increased recently by his PCP for concerns of worsened PMR ( he was having leg pain). Continue current dose of prednisone. (6) BPH (benign prostatic hyperplasia) Comment: Continue home finasteride. (7) DVT prophylaxis Comment: SQ heparin (8) DNR (do not resuscitate) Comment: MOLST updated on 09/27/16 Patient wishes to be DNR with trial intubation/BiPap Status and Disposition: Inpatient
[2016-10-04] MEDS: Ibuprofen TAB* 400 MG PO PRN ×2 (11:40→20:24)
[2016-10-04] MEDS: predniSONE TAB* 10 MG PO SCH (11:40)
[2016-10-04] MEDS: cefTRIAXone VIAL(*) 1,000 MG in NS 0.9% 50 ML* 50 ML IVPB SCH (14:10)
[2016-10-04] MEDS: Tiotropium CAP.INH* CAP.INH/18 MCG INH SCH (19:46)
[2016-10-04] MEDS: Mirtazapine TAB* 15 MG PO SCH (20:24)
[2016-10-05] MEDS: Albuterol 2.5 MG/3 ML NEB.SOL* (0.083%) INH SCH ×4 (00:09→19:19)
[2016-10-05] MEDS: Ondansetron INJ* 2 MG/ML VIAL IV PRN (04:50)
[2016-10-05] MEDS: Heparin VIAL(*) 5000 UNITS/ML VIAL (FIVE THOUSAND) SUBCUT SCH ×3 (06:26→21:04)
[2016-10-05] MEDS: Ibuprofen TAB* 400 MG PO PRN ×2 (07:35→21:03)
[2016-10-05] MEDS: Acetaminophen TAB* 325 MG PO PRN (08:09)
[2016-10-05] MEDS: predniSONE TAB* 10 MG PO SCH (08:10)
[2016-10-05] MEDS: Multivitamins/Minerals TAB PO SCH (08:11)
[2016-10-05] MEDS: Finasteride TAB* 5 MG PO SCH (08:11)
[2016-10-05] MEDS: guaiFENesin ER TAB 600 MG PO SCH ×2 (08:11→21:04)
[2016-10-05] MEDS: Ascorbic Acid TAB* 500 MG PO SCH (08:11)
[2016-10-05] MEDS: Mometasone/Formoter 200/5 MDI INH SCH ×2 (08:14→19:20)
[2016-10-05] MEDS: cefTRIAXone VIAL(*) 1,000 MG in NS 0.9% 50 ML* 50 ML IVPB SCH (15:28)
[2016-10-05] MEDS ORDERED: PROCHLORPERAZINE INJ 5 MG/ML 2 ML VIAL IV PRN (15:48)
[2016-10-05] MEDS: Tiotropium CAP.INH* CAP.INH/18 MCG INH SCH (19:20)
--- NOTE | 2016-10-05 19:20 | PN ---
Subjective Date of Service: 10/05/16 Interval History: Upset this AM because he did not get temezapam last night Also upset that "I am not getting any better" and "I can't believe this place." Discussed his improvement since admission Denies SOB +nausea not fully relieved with zofran Family History: Unchanged from Admission Social History: Unchanged from Admission Past Medical History: Unchanged from Admission Objective Active Medications: Acetaminophen (Tylenol Tab*) 650 mg PO Q4H PRN PRN Reason: TEMP EQUAL OR GREATER 101 F Last Admin: 10/05/16 08:09 Dose: 650 mg Albuterol (Ventolin Hfa Inhaler*) 2 puff INH Q4H PRN PRN Reason: SOB/WHEEZING Last Admin: 09/27/16 09:01 Dose: 2 inh Albuterol (Ventolin 2.5 Mg/3 Ml Neb.Marie*) 2.5 mg INH [id number] AWAKE [facility] Last Admin: 10/05/16 13:03 Dose: 2.5 mg Ascorbic Acid (Vitamin C Tab*) 500 mg PO DAILY [facility] Last Admin: 10/05/16 08:11 Dose: 500 mg Bisacodyl (Dulcolax Supp*) 10 mg NE DAILY PRN PRN Reason: CONSTIPATION Docusate Sodium (Colace Cap*) 100 mg PO BID PRN PRN Reason: CONSTIPATION Last Admin: 09/27/16 14:12 Dose: 100 mg Finasteride (Proscar Tab*) 5 mg PO QAM [facility] Last Admin: 10/05/16 08:11 Dose: 5 mg Guaifenesin (Mucinex*) 600 mg PO BID [facility] Last Admin: 10/05/16 08:11 Dose: 600 mg Heparin Sodium (Porcine) (Heparin Vial(*)) 5,000 units SUBCUT Q8HR [facility] Last Admin: 10/05/16 15:28 Dose: 5,000 units Ceftriaxone Sodium 1,000 mg/ (Sodium Chloride) 50 mls @ 200 mls/hr IVPB Q24H [facility] Last Admin: 10/05/16 15:28 Dose: 200 mls/hr Ibuprofen (Motrin Tab*) 400 mg PO Q6HR PRN PRN Reason: pain Last Admin: 10/05/16 07:35 Dose: 400 mg Magnesium Hydroxide (Milk Of Magnesia Liq*) 30 ml PO DAILY PRN PRN Reason: CONSTIPATION Last Admin: 10/04/16 08:21 Dose: 30 ml Mometasone Furoate/Formoterol Fumar (Dulera 200/5 Mdi*) 2 puff INH BID [facility] Last Admin: 10/05/16 08:14 Dose: 2 puff Multivitamins/Minerals (Theragran/Minerals Tab*) 1 tab PO DAILY [facility] Last Admin: 10/05/16 08:11 Dose: 1 tab Ondansetron HCl (Zofran Inj*) 4 mg IV Q6H PRN PRN Reason: NAUSEA Last Admin: 10/05/16 04:50 Dose: 4 mg Oxycodone/Acetaminophen (Percocet 5/325 Tab*) 1 tab PO Q4H PRN PRN Reason: PAIN - MILD Last Admin: 10/04/16 09:22 Dose: 1 tab Polyethylene Glycol/Electrolytes (Miralax*) 17 gm PO DAILY PRN PRN Reason: CONSTIPATION Prednisone (Deltasone Tab*) 30 mg PO DAILY [facility] Last Admin: 10/05/16 08:10 Dose: 30 mg Prochlorperazine Edisylate (Compazine Inj*) 5 mg IV Q6H PRN PRN Reason: NAUSEA/VOMITING Senna (Senokot Tab*) 2 tab PO BEDTIME PRN PRN Reason: CONSTIPATION Last Admin: 09/27/16 14:12 Dose: 2 tab Temazepam (Restoril Cap*) 15 mg PO BEDTIME PRN PRN Reason: INSOMNIA Tiotropium [place] (Spiriva Cap.Inh*) 1 cap INH BEDTIME [facility] Last Admin: 10/04/16 19:46 Dose: 1 cap Vital Signs 10/04/16 10/04/16 10/04/16 19:47 19:48 20:00 Temperature Pulse Rate 93 Respiratory 20 24 Rate Blood Pressure (mmHg) O2 Sat by Pulse 98 98 Oximetry 10/04/16 10/04/16 10/05/16 20:04 23:48 00:10 Temperature 97.9 F 97.4 F Pulse Rate 94 91 87 Respiratory 24 17 20 Rate Blood Pressure 105/58 107/60 (mmHg) O2 Sat by Pulse 98 97 99 Oximetry 10/05/16 10/05/16 10/05/16 03:57 07:36 07:55 Temperature 98.4 F 98.4 F Pulse Rate 95 97 Respiratory 16 20 20 Rate Blood Pressure 101/62 118/62 (mmHg) O2 Sat by Pulse 97 97 Oximetry 10/05/16 10/05/16 10/05/16 08:14 11:23 13:03 Temperature 97.5 F Pulse Rate 93 91 101 Respiratory 20 18 20 Rate Blood Pressure 110/56 (mmHg) O2 Sat by Pulse 99 95 99 Oximetry 10/05/16 16:05 Temperature 97.7 F Pulse Rate 104 Respiratory 24 Rate Blood Pressure 113/80 (mmHg) O2 Sat by Pulse 95 Oximetry Oxygen Devices in Use Now: Nasal Cannula - 4L Appearance: NAD, more talkative today Eyes: No Scleral Icterus Ears/Nose/Mouth/Throat: Mucous Membranes Moist Respiratory: Symmetrical Chest Expansion and Respiratory Effort, - - decreased throughout, rhonchi anteriorly Cardiovascular: RRR Abdominal: NL Sounds; No Tenderness; No Distention, No Hepatosplenomegaly Lymphatic: No Cervical Adenopathy Extremities: No Edema Skin: No Rash or Ulcers Result Diagrams: 10/03/16 10:18 09/28/16 08:46 Microbiology and Other Data: Microbiology 09/25/16 18:15 Gram Stain - Final Sputum Expectorated 09/25/16 18:15 Legionella Urinary Antigen - Final Urine Negative Legionella Streptococcus pneumoniae Ag Screen - Final Positive S. Pneumo Antigen Assess/Plan/Problems-Billing Assessment: Mr. Carrillo is an 86 yo male patient with a history significant for COPD (on home 2L O2), PMR, and BPH who was recently admitted and treated for COPD exacerbation and pneumonia and now returns sepsis 2/2 pneumococcal PNA, demand- mediated NSTEMI, course complicated by acute on chronic hypoxic respiratory failure requiring transfer to ICU and [facility]NC. - Patient Problems (1) Acute and chronic respiratory failure with hypoxia Comment: 2/2 PNA. continue to monitor closely (2) Sepsis Comment: 2/2 pneumococcal PNA (positive urine antigen) Fever 7/4 AM -CRP improving since admission. Procalcitonin nominal CXR done improving Continue IV ceftriaxone (Day 10) (3) Elevated troponin Comment: Chest pain is reproducible and suspect some costochondritis Suspect demand ischemia with acute PNA and COPD exacerbation (4) COPD (chronic obstructive pulmonary disease) Comment: Continue prednisone 30mg (day 10) and standing/prn nebs. Continue Dulera (in place of Breo) and Spiriva. 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 (5) Polymyalgia rheumatica Comment: Prednisone dose was increased recently by his PCP for concerns of worsened PMR ( he was having leg pain). Continue current dose of prednisone. (6) BPH (benign prostatic hyperplasia) Comment: Continue home finasteride. (7) DVT prophylaxis Comment: SQ heparin (8) DNR (do not resuscitate) Comment: [facility] updated on 09/27/16 Patient wishes to be DNR with trial intubation/BiPap Status and Disposition: Inpatient
[2016-10-05] MEDS ORDERED: Temazepam CAP* 15 MG PO PRN (21:00)
[2016-10-06] MEDS: Albuterol 2.5 MG/3 ML NEB.SOL* (0.083%) INH SCH ×3 (00:45→13:43)
[2016-10-06] MEDS: Acetaminophen TAB* 325 MG PO PRN (02:55)
[2016-10-06] MEDS: Ondansetron INJ* 2 MG/ML VIAL IV PRN (05:15)
[2016-10-06] MEDS: Heparin VIAL(*) 5000 UNITS/ML VIAL (FIVE THOUSAND) SUBCUT SCH ×2 (05:15→14:05)
[2016-10-06 06:17] LABS: Hematocrit 32 % (42-52); Hemoglobin 10.4 g/dl (14.0-18.0); Mean Corpuscular HGB Conc 32 g/dl (31-36); Mean Corpuscular Hemoglobin 31 pg (27-31); Mean Corpuscular Volume 95 fL (80-94); Mean Platelet Volume 8 um3 (7.4-10.4); Red Blood Count 3.38 10^6/ul (4.0-5.4); Red Cell Distribution Width 15 % (10.5-15); White Blood Count 9.1 10^3/ul (3.5-10.8)
[2016-10-06 06:25] LABS: Add Diff/Slide Review? Slide Review Added; Comments Flag Yes
[2016-10-06 06:31] LABS: BUN/Creatinine Ratio 21.1 (8-20); Calcium 8.6 mg/dL (8.6-10.3); EGFR African American 125.4 (>60); EGFR Non-African American 97.5 (>60)
[2016-10-06 06:41] LABS: Immature Granulocytes 15 % (0-9); Metamyelocytes % 3 % (0-2); Myelocytes % 1 % (0-1); Neutrophil % 63 % (38-83)
[2016-10-06 06:42] LABS: Macrocytosis 1+; Microcytosis 1+
[2016-10-06] MEDS: Finasteride TAB* 5 MG PO SCH (08:08)
[2016-10-06] MEDS: Multivitamins/Minerals TAB PO SCH (08:08)
[2016-10-06] MEDS: predniSONE TAB* 10 MG PO SCH (08:08)
[2016-10-06] MEDS: Ascorbic Acid TAB* 500 MG PO SCH (08:08)
[2016-10-06] MEDS: oxyCODONE/Acetamin 5/325 MG* TAB PO PRN (08:08)
[2016-10-06] MEDS: guaiFENesin ER TAB 600 MG PO SCH (08:08)
[2016-10-06] MEDS: Mometasone/Formoter 200/5 MDI INH SCH (11:24)
[2016-10-06 13:22] VITALS: BP 101/53
[2016-10-06] MEDS: cefTRIAXone VIAL(*) 1,000 MG in NS 0.9% 50 ML* 50 ML IVPB SCH (14:11)
--- NOTE | 2016-10-06 15:10 | DS ---
CC: Dr. Shekhar Issa * DATE OF ADMISSION: 09/25/2016. DATE OF DISCHARGE: 10/06/2016. PRIMARY CARE PROVIDER: Dr. Shekhar Issa. PRIMARY DIAGNOSIS: Hypoxic respiratory failure secondary to strep pneumo pneumonia. SECONDARY DIAGNOSES: 1. Chronic respiratory failure. 2. Severe sepsis, type 2. 3. [id number] myocardial infarction. 4. Chronic COPD. 5. Polymyalgia rheumatica. 6. Benign prostatic hypertrophy. 7. Depression. 8. Insomnia. 9. Hyperlipidemia. MEDICATIONS AT DISCHARGE: 1. Guaifenesin ER 600 mg twice daily as needed for cough. 2. Fish oil 1000 mg daily. 3. Multivitamin one tab daily. 4. Dulcolax 10 mg suppository as needed for constipation. 5. Milk of Magnesia 5 mg daily as needed for constipation. 6. Motrin 400 mg every 6 hours as needed for pain. 7. Vitamin C 500 mg daily. 8. Temazepam 30 mg at bedtime as needed for insomnia. 9. Ipratropium nebulizer three times a day as needed for shortness of breath. 10. Breo Ellipta 100/25 one puff daily. 11. Finasteride 5 mg daily. 12. Albuterol ProAir RespiClick two puffs inhaled every 4 hours as needed for shortness of breath. 13. Triamcinolone 0.5 percent cream topically as needed. 14. Spiriva cap one cap inhaled at bedtime. 15. Prednisone 30 mg daily for polymyalgia rheumatica. 16. Remeron 15 mg at bedtime. 17. Percocet 5/325 one tab every 4 hours as needed for pain. 18. Senna two tabs at bedtime as needed for constipation. 19. MiraLax 17 gm daily as needed for constipation. 20. Zofran ODT 4 mg every 6 hours as needed for nausea. 21. Levaquin 750 mg daily for 10 additional days. 22. Lasix 10 mg every other day. 23. Docusate 100 mg twice daily as needed for constipation. 24. Ventolin nebulizer every 6 hours as needed for shortness of breath or wheeze. HISTORY OF PRESENT ILLNESS AND HOSPITAL COURSE: This is an 86-year-old gentleman with a past medical history as outlined in the history of present illness on the day of admission who had a recent hospital stay at the beginning of August, discharged on September 15 for what was thought to be a COPD exacerbation with possible pneumonia. He was discharged on a short course of Clarithromycin , however returned to the hospital with hypoxic respiratory failure and he was ultimately admitted to the ICU under the care of Dr. Mayo where he received high flow oxygen with Vapotherm. He did not need intubation. His strep pneumo urinary antigen returned positive suggesting his lobar pneumonia was secondary to strep pneumococcus. He was treated with Ceftriaxone for ten days prior to discharge with titration of his oxygen off of Vapotherm, down to 4 liters on the floor; it was 3 liters on the day of discharge. O2 saturation is 93 percent. He is on 2 liters at home with his chronic respiratory failure. On presentation, his troponin elevated to 0.46 without any other indication of ischemia, thought to be type 2 demand mediated NSTEMI. Additionally, white blood cell count peaked at 17,000 on the day of admission; it was down to 9.1 on the day of discharge in the setting of continued steroids. CRP had notable improvement, 479 to 195 three days prior to discharge on continued antibiotics. While the patient still felt weak, he was up and working with Physical Therapy , ambulating over 35 feet two days prior to discharge. He will be discharged to [facility] to continue antibiotics for ten additional days. He has a PENICILLIN ALLERGY and therefore will not be discharged on Penicillin or Augmentin. I have chosen Levofloxacin for this reason. Additionally, he had taken five days of Clarithromycin and presented to the hospital. Did not discharge on Clarithromycin or Doxycycline as he also has an ALLERGY TO DOXYCYCLINE. The patient did have continued left upper chest wall tenderness in the area overlying his pneumonia. His pain was improved with Motrin. It is not thought to be ischemic in nature. It is possibly in the setting of underlying infection or some continued coughing. For further details of this complicated hospital stay, please see the medical record. AT FOLLOW-UP PLEASE: 1. Evaluate for need to continue or lengthen antibiotic course. 2. Continue steroid titration as necessary to polymyalgia rheumatica. No other specific labs or vitals that need follow-up. REASONS TO RETURN TO THE HOSPITAL: Including, but not limited to recurrent or worsening of symptoms including shortness of breath, chest pain, nausea, vomiting, lightheadedness, loss of consciousness, fevers, chills, night sweats, inability to obtain or tolerate medications were discussed with the patient and he acknowledged understanding. Greater than 60 minutes were spent on the discharge of this patient, greater than half was spent [id number] with the patient. [id number]/[facility] #: [id number] YFN
== END 2016-10-06 15:30 | DRG 871 ==
LOC: ED 11:35 → MEDTELE 14:00 → OBSVTOIN 09-26 09:00 → MEDTELE 09-26 23:04 → ICU 09-28 11:21 → MED 09-30 11:49
PROVIDERS: ADMIT Internal Medicine; ATTEND Internal Medicine
DX: A41.9 Sepsis, unspecified organism (principal); J96.21 Acute and chronic respiratory failure with hypoxia; I21.4 Non-ST elevation (NSTEMI) myocardial infarction; I50.9 Heart failure, unspecified; J44.0 Chronic obstructive pulmonary disease with (acute) lower respiratory infection; E87.3 Alkalosis; J13 Pneumonia due to Streptococcus pneumoniae; M19.90 Unspecified osteoarthritis, unspecified site; Z96.642 Presence of left artificial hip joint; F32.9 Major depressive disorder, single episode, unspecified; G47.00 Insomnia, unspecified; M35.3 Polymyalgia rheumatica; Z66 Do not resuscitate; R65.20 Severe sepsis without septic shock; R33.8 Other retention of urine; E78.5 Hyperlipidemia, unspecified; N40.1 Benign prostatic hyperplasia with lower urinary tract symptoms; G43.909 Migraine, unspecified, not intractable, without status migrainosus; F41.0 Panic disorder [episodic paroxysmal anxiety]; H26.9 Unspecified cataract; Z87.891 Personal history of nicotine dependence; Z99.81 Dependence on supplemental oxygen; Z88.0 Allergy status to penicillin; Z88.8 Allergy status to other drugs, medicaments and biological substances; Z88.1 Allergy status to other antibiotic agents; Z82.49 Family history of ischemic heart disease and other diseases of the circulatory system; Z81.8 Family history of other mental and behavioral disorders; Z88.2 Allergy status to sulfonamides; Z85.05 Personal history of malignant neoplasm of liver; Z79.52 Long term (current) use of systemic steroids
CPT/HCPCS: 36415; 36600; 70450; 71010; 71020; 80048; 80053; 81003; 82550; 82553; 82803; 83605; 83690; 83735; 83880; 84145; 84443; 84484; 85025; 85027; 85610; 85730; 86140; 87040; 87070; 87205; 87641; 87899; 93005; 94640; 94760; A9270-GY; G8996-GN-CH; G8997-GN-CH; G8998-GN-CH; J0692; J0696; J0744; J1644; J1885; J1940; J2270; J2405; J2930; J7512